=== PATIENT | male | born 1955 | race Caucasian/White ===

== ENCOUNTER 2018-07-22 21:21 | Inpatient (IN) ==
[2018-07-22] MEDS ORDERED: Ampicillin/Sulbactam 3,000 MG in 0.9 % Sodium Chloride Mini Bag 100 ML IVPB ONE (21:42)
--- NOTE | 2018-07-22 21:47 | Emergency Department Note ---
Disposition Clinical Impression: Cough, Obesities, morbid, Pleural effusion Dyspnea Qualifiers: Dyspnea type: unspecified Qualified Code(s): R06.00 - Dyspnea, unspecified Urinary incontinence Qualifiers: Urinary Incontinence type: unspecified incontinence Qualified Code(s): R32 - Unspecified urinary incontinence Chronic kidney disease (CKD) Qualifiers: Chronic kidney disease stage: unspecified stage Qualified Code(s): N18.9 - Chronic kidney disease, unspecified Disposition: Admitted As Inpatient Condition: Fair Referrals: Ephraim Esquivel MD [Primary Care Provider] - Forms: ED Satisfaction Letter, Work/School Release Time of Disposition: 22:23 Extremity Problem HPI - General Chief complaint: ED General Medical Stated complaint: multiple complaints Time Seen by Provider: 07/22/18 21:27 Source: patient, family Mode of arrival: wheelchair Limitations: no limitations Nursing Notes Reviewed: Yes Vital Signs Reviewed: Yes - History of Present Illness HPI Narrative: Patient presents with chronic changes to his left lower extremity. He states he and his significant other have been bandaging it is lower leg and foot. He states the swelling and redness continue with several sores. He states at one point his digits turned a dark color. He saw all the wound care clinic years ago. He also complains of a cough over the past 2 months with intermittent dyspnea feeling like "I cannot get enough air." He complains of unintentional urinary incontinence and urination on himself even when he does not feel like he is actively voiding Pt Subjective Complaint: extremity pain, extremity swelling Onset (ago): month(s) Consistency: constant Injury Location: left, lower extremity Pain Scale: 0 Improves with: nothing Worsens with: other (Circumferential bandage ) Associated symptoms: Reports: shortness of breath, bowel/bladder symptoms Context: other (Patient states no known history of peripheral arterial disease or DVT) - Related Data Home Medications Medication Instructions Recorded Confirmed Aspirin Enteric Coated [Aspirin EC] 81 mg PO BID 07/22/18 07/22/18 Atorvastatin Calcium [Lipitor] 20 mg PO HS 07/22/18 07/22/18 Cholecalciferol (D-3) [Vitamin D] 5,000 unit PO DAILY 07/22/18 07/22/18 Insulin ASPART [NovoLOG] 20 - 24 unit SQ TIDWM 07/22/18 07/22/18 Insulin Glargine,Hum.rec.anlog 120 unit SQ HS 07/22/18 07/22/18 [Lantus Solostar] Metoprolol Succinate [Kapspargo 50 mg PO DAILY 07/22/18 07/22/18 Sprinkle] Pioglitazone HCl/Metformin HCl 1 tab PO DAILY 07/22/18 07/22/18 [Actoplus Met Xr 30-1,000 mg Tb] Quinapril/Hydrochlorothiazide 1 tab PO DAILY 07/22/18 07/22/18 [Quinapril-Hctz 20-12.5 mg Tab] Allergies Allergy/AdvReac Type Severity Reaction Status Date / Time No Known Allergies Allergy Verified 07/22/18 21:27 All systems ED: reviewed and negative except as stated. Constitutional: Reports: weight change Eyes: Reports: as per HPI ENT ED: Reports: as per HPI Cardiovascular: Reports: as per HPI Respiratory: Reports: cough, dyspnea Gastrointestinal: Reports: as per HPI Genitourinary: Reports: other (Urinary incontinence) Musculoskeletal: Reports: other (Left lower extremity pain and swelling) Integumentary: Reports: other (Skin lesions left lower extremity) Neurological: Reports: as per HPI Psychiatric: Reports: as per HPI Endocrine: Reports: as per HPI Hematological/Lymphatic: Reports: as per HPI Allergic/Immunologic: Reports: as per HPI Past Medical History - Past Medical History Source: patient Medical history: Reports: diabetes, hypertension Psychiatric history: Reports: no psych history - Social History Smoking Status: Former smoker Alcohol use: Reports: none Drug use: Reports: none Physical Exam - General Limitations: no limitations General appearance: alert, obese - Head Head exam: atraumatic - Eye Eye exam: Present: normal appearance - ENT ENT exam: normal exam - Neck Neck exam: Present: normal inspection, full ROM - Chest Chest inspection: Present: normal inspection, symmetric chest wall rise - Respiratory Respiratory exam: Present: normal lung sounds bilaterally - Cardiovascular Cardiovascular exam: Present: regular rate, normal rhythm, normal heart sounds - Abdominal Exam Abdominal exam: Present: soft, Non-Tender - Extremities Exam Extremities exam: Present: pedal edema, other (Left lower extremity with chronic skin changes and circumferential erythema from mid calf extending distally to the foot. Dorsalis pedis pulse identified by handheld Doppler device. Toenails thickened consistent with onychomycosis) - Neurological Exam Neurological exam: Present: alert, oriented X3, CN II-XII intact - Psychiatric Psychiatric exam: Present: normal affect, normal mood - Skin Skin exam: Present: warm, dry, other (Chronic skin changes to the distal left lower extremity. Fungal rash to inner thighs) Course Course Narrative: Patient presents to the emergency department with several complaints including left lower extremity skin changes and swelling, shortness of breath, urinary incontinence. Workup initiated including labs and urinalysis. Portable chest x-ray and EKG obtained. Hand-held Doppler device able to identify pulses to his left lower extremity. I plan to admit the patient for left lower external cellulitis and further evaluation and management. He may require further vascular evaluation upon admission but at this time it appears he has preserved perfusion to his lower extremities bilaterally - Reevaluation(s) Reevaluation #1: Test results discussed with patient. I will request admission to the medicine service Vital Signs Temperature 98.5 F 07/22/18 21:27 Pulse Rate 80 07/22/18 21:27 Respiratory Rate 20 07/22/18 21:27 Blood Pressure 139/79 07/22/18 21:27 O2 Sat by Pulse Oximetry 85 07/22/18 21:27 Temperature 98.5 F 07/22/18 21:36 Pulse Rate 78 07/22/18 22:32 Respiratory Rate 18 07/22/18 22:32 Blood Pressure 124/50 07/22/18 22:32 O2 Sat by Pulse Oximetry 94 07/22/18 22:32 Oxygen Delivery Oxygen Delivery Nasal Cannula Extremity Problem, Nontraumati - Medical Records Medical records reviewed: Yes I reviewed the patient's medical records. - Lab Data Lab results reviewed: Yes I reviewed the patient's lab results. Result diagrams: 07/22/18 21:41 07/22/18 21:41 Lab Results 07/22/18 07/22/18 07/22/18 Range/Units 21:41 21:41 21:41 WBC 7.7 (4.3-11.1) K/mcL RBC 5.34 (4.19-5.50) M/mcL Hgb 13.1 (12.9-16.9) g/dL Hct 45.5 (37.5-50.1) % MCV 85.2 (83.0-100.0) fL MCH 24.5 L (28.0-33.3) pg MCHC 28.8 L (31.6-35.5) g/dL RDW 18.3 H (11.5-14.5) % Plt Count 187 (140-400) K/mcL MPV 9.5 (9.4-12.4) fL Immature Gran % 0.6 (0-4) % Seg Neutrophils % 74.4 % Lymphocytes % 10.9 % Monocytes % 11.4 % Eosinophils % 2.2 % Basophils % 0.5 % Neutrophils # 5.7 (1.6-8.9) K/mcL Lymphocytes # 0.8 (0.6-4.6) K/mcL Monocytes # 0.9 (0.0-1.3) K/mcL Eosinophils # 0.2 (0.0-0.6) K/mcL Basophils # 0.0 (0.0-0.2) K/mcL Nucleated RBCs/100 WBC 1.4 H (0) /100 WBC Hypochromasia Present A (Not Present) PT 18.9 H (9.4-12.1) Seconds INR 1.7 Sodium 136 (136-145) mEq/L Potassium 4.3 (3.5-5.1) mEq/L Chloride 94 L (98-107) mEq/L Carbon Dioxide 35 H (23-29) mEq/L BUN 52 H (8-23) mg/dL Creatinine 1.97 H (0.70-1.30) mg/dL Est GFR ( Amer) 42 L (> 60) Est GFR (Non-Af Amer) 35 L (> 60) BUN/Creatinine Ratio 26 (6-26) Glucose 104 (70-105) mg/dL Calculated Osmolality 296 (280-300) Calcium 9.1 (8.6-10.3) mg/dL Total Bilirubin 1.8 H (0.3-1.0) mg/dL AST 46 H (13-39) Units/L ALT 65 H (7-52) Units/L Alkaline Phosphatase 57 (34-104) Units/L Troponin I 0.03 (< 0.04) ng/mL Serum Total Protein 6.8 (6.4-8.9) g/dL Albumin 3.3 L (3.5-5.7) g/dL Globulin 3.5 (2.4-3.5) g/dL Albumin/Globulin Ratio 0.9 L (1.1-2.2) Urine Color (Yellow) Urine Clarity (Clear) Urine pH (5.0-8.0) pH Units Ur Specific Bucks (1.010-1.025) Urine Protein (Neg-Trace) mg/dL Urine Glucose (UA) (Normal) mg/dL Urine Ketones (Negative) mg/dL Urine Blood (Negative) Urine Nitrite (Negative) Urine Bilirubin (Negative) Urine Urobilinogen (Normal) mg/dL Ur Leukocyte Esterase (Negative) 07/22/18 Range/Units 22:22 WBC (4.3-11.1) K/mcL RBC (4.19-5.50) M/mcL Hgb (12.9-16.9) g/dL Hct (37.5-50.1) % MCV (83.0-100.0) fL MCH (28.0-33.3) pg MCHC (31.6-35.5) g/dL RDW (11.5-14.5) % Plt Count (140-400) K/mcL MPV (9.4-12.4) fL Immature Gran % (0-4) % Seg Neutrophils % % Lymphocytes % % Monocytes % % Eosinophils % % Basophils % % Neutrophils # (1.6-8.9) K/mcL Lymphocytes # (0.6-4.6) K/mcL Monocytes # (0.0-1.3) K/mcL Eosinophils # (0.0-0.6) K/mcL Basophils # (0.0-0.2) K/mcL Nucleated RBCs/100 WBC (0) /100 WBC Hypochromasia (Not Present) PT (9.4-12.1) Seconds INR Sodium (136-145) mEq/L Potassium (3.5-5.1) mEq/L Chloride (98-107) mEq/L Carbon Dioxide (23-29) mEq/L BUN (8-23) mg/dL Creatinine (0.70-1.30) mg/dL Est GFR ( Amer) (> 60) Est GFR (Non-Af Amer) (> 60) BUN/Creatinine Ratio (6-26) Glucose (70-105) mg/dL Calculated Osmolality (280-300) Calcium (8.6-10.3) mg/dL Total Bilirubin (0.3-1.0) mg/dL AST (13-39) Units/L ALT (7-52) Units/L Alkaline Phosphatase (34-104) Units/L Troponin I (< 0.04) ng/mL Serum Total Protein (6.4-8.9) g/dL Albumin (3.5-5.7) g/dL Globulin (2.4-3.5) g/dL Albumin/Globulin Ratio (1.1-2.2) Urine Color Yellow (Yellow) Urine Clarity Clear (Clear) Urine pH 5.5 (5.0-8.0) pH Units Ur Specific Bucks 1.020 (1.010-1.025) Urine Protein 30 H (Neg-Trace) mg/dL Urine Glucose (UA) Normal (Normal) mg/dL Urine Ketones Negative (Negative) mg/dL Urine Blood Negative (Negative) Urine Nitrite Negative (Negative) Urine Bilirubin Small H (Negative) Urine Urobilinogen 4.0 H (Normal) mg/dL Ur Leukocyte Esterase Negative (Negative) - Radiology Data Radiology results reviewed: Yes I reviewed the patient's radiology results. - EKG Data EKG attestation: Yes I reviewed and interpreted this EKG. EKG results narrative: Normal sinus rhythm rate 77 OK 207 QRS 105 QT/QTc 377/427. Mild ST segment flattening in inferior leads. Inverted T waves in lead V3. No studies available for comparison
[2018-07-22 22:04] LABS: Basophils % 0.5 %; Eosinophils # 0.2 K/mcL (0.0-0.6); Eosinophils % 2.2 %; Hematocrit 45.5 % (37.5-50.1); Hemoglobin 13.1 g/dL (12.9-16.9); Immature Granulocytes % 0.6 % (0-4); Lymphocytes # 0.8 K/mcL (0.6-4.6); Lymphocytes % 10.9 %; Mean Corpuscular HGB Conc 28.8 g/dL (31.6-35.5); Mean Corpuscular Hemoglobin 24.5 pg (28.0-33.3); Mean Corpuscular Volume 85.2 fL (83.0-100.0); Mean Platelet Volume 9.5 fL (9.4-12.4); Monocytes # 0.9 K/mcL (0.0-1.3); Monocytes % 11.4 %; Nucleated Red Blood Cells 1.4 /100 WBC (0); Platelet Count 187 K/mcL (140-400); Red Blood Count 5.34 M/mcL (4.19-5.50); Red Cell Distribution Width 18.3 % (11.5-14.5); Segmented Neutrophils % 74.4 %
[2018-07-22 22:08] LABS: Neutrophils # 5.7 K/mcL (1.6-8.9)
[2018-07-22 22:09] LABS: INR 1.7; Prothrombin Time 18.9 Seconds (9.4-12.1)
[2018-07-22 22:19] LABS: Hypochromasia Present (Not Present)
[2018-07-22 22:26] LABS: Troponin I 0.03 ng/mL (< 0.04)
[2018-07-22 22:27] LABS: Albumin 3.3 g/dL (3.5-5.7); Albumin/Globulin Ratio 0.9 (1.1-2.2); Bilirubin,Total 1.8 mg/dL (0.3-1.0); Calcium 9.1 mg/dL (8.6-10.3); Globulin 3.5 g/dL (2.4-3.5); Potassium 4.3 mEq/L (3.5-5.1); Total Protein 6.8 g/dL (6.4-8.9)
[2018-07-22 22:41] LABS: Bilirubin,Urine Small (Negative); Blood,Urine Negative (Negative); Clarity,Urine Clear (Clear); Color,Urine Yellow (Yellow); Glucose,Urine (UA) Normal (Normal); Ketones,Urine Negative (Negative); Leukocyte Esterase,Urine Negative (Negative); Nitrite,Urine Negative (Negative); PH,Urine 5.5 pH Units (5.0-8.0); Protein,Urine 30 mg/dL (Neg-Trace)
[2018-07-22 22:42] LABS: Squamous Epithelial Cell,Urine Many per lpf (None-Few); WBC,Urine 0-3 per hpf (0-3)
[2018-07-22 22:56] LABS: Hyaline Casts,Urine Many per lpf (None-Few)
[2018-07-22 22:57] LABS: Bacteria,Urine Few per hpf (None-Few); Mucus,Urine Many (Few)
[2018-07-22] MEDS ORDERED: Naloxone 0.4 MG/ML INJ IVP PRN (23:07)
--- NOTE | 2018-07-23 02:13 | Internal Med History&Physical ---
<Finn Cox - Last Filed: 07/23/18 05:51> Date of Encounter: 07/23/18 Time of Encounter: 01:30 Internal Medicine - H&P: HPI Chief complaint: Left leg cellulitis Admitted From: Emergency Dept Plans for Post Hospital Care: Transfer Inp Rehab Fac History of present illness: Mr. Flores is a 62 year old male with history of diabetes, hypertension, chronic cellulitis who presents to the ED with complaint of left leg wound and cellulitis which is been getting worse over the past 2-3 weeks. He says that this has been chronic over the past 5-7 years, and required wound care approximately 5 years ago. In the past 2-3 weeks, he says that he has not been able to keep it under control. The wound has been getting worse, and he says that has been weeping water. He has also noticed that it has become redder, and has been swelling. Today, his and daughter mentioned that his toes became black at approximately 8 PM at that time they decided to bring him to the hospital. The time he reached the ED they noticed that his toes have no longer present black but had recovered to a pinkish color. This is associated with some pain and tenderness, however the most part it is not that painful. Overall, he says that he has not had any fevers, however he does get chilled. He denies any purulent discharge. In addition of this, he does mention that he has had increasing shortness of breath and says that at this point he is only able to walk 5-10 steps before she becomes extremely short of breath and is unable to continue. This has been worsening significantly. It is not associated with any chest pain, and rest does seem to help. He does not get diaphoresis during this time. He does not remember ever being diagnosed with a heart attack or any heart failure. Finally, the patient complains of urinary incontinence which has been going on for approximately one week to his knowledge. He says that he hardly notices it, however he has had pain and tenderness in his groin area and he has noticed that there is been witnessed and his groin due to leaking of urine. He has not noted any dysuria or discharge. He also has not noticed any blood in his urine. He does admit to some pain in his lower back which is bilateral. Past Med Surg Social Fam HX - Past Medical History Medical history: diabetes, hypertension Psychiatric history: no psych history - Past Surgical History Additional surgical history: right foot surgery - Social History Smoking Status: Former smoker Alcohol use: none Drug use: none - Family History Mother Family Member Ethnicity: Non- Living Status: Age at : 71 Hx Family Cancer: Yes (lung/brain cancer) Hx Family Endocrine Disorder: Yes (diabetes) Father Family Member Ethnicity: Non- Living Status: Age at : 75 Hx Family Cardiac Disorders: Yes (heart attack) Internal Medicine - H&P: Meds Aspirin Enteric Coated [Aspirin EC] 81 mg PO BID 07/22/18 [History] Atorvastatin Calcium [Lipitor] 20 mg PO HS 07/22/18 [History] Cholecalciferol (D-3) [Vitamin D] 5,000 unit PO DAILY 07/22/18 [History] Insulin ASPART [NovoLOG] 20 - 24 unit SQ TIDWM 07/22/18 [History] Insulin Glargine,Hum.rec.anlog [Lantus Solostar] 120 unit SQ HS 07/22/18 [ History] Metoprolol Succinate [Kapspargo Sprinkle] 50 mg PO DAILY 07/22/18 [History] Pioglitazone HCl/Metformin HCl [Actoplus Met Xr 30-1,000 mg Tb] 1 tab PO DAILY 07/22/18 [History] Quinapril/Hydrochlorothiazide [Quinapril-Hctz 20-12.5 mg Tab] 1 tab PO DAILY 11/08 [History] 3 Allergy/AdvReac Type Severity Reaction Status Date / Time No Known Allergies Allergy Verified 07/22/18 21:27 All Systems PM: A 10-system review of systems was performed and is negative for pertinent findings except as documented above in the HPI. Review of systems: Constitutional: Denies fevers, weight loss, generalized fatigue. Admits to chills Head/Neck: Denies CARTER, neck stiffness EENT: Denies vision changes/blurriness, rhinorrhea, congestion, sore throat CVS: Denies chest pain, palpitations, orthopnea, edema, PND. Admits to dyspnea on exertion with only minimal activity Pulm: Denies cough, sputum, hemoptysis, wheezing GI: Denies abdominal pain, nausea, vomiting, diarrhea, constipation, melena, hematemasis : Denies dysuria, increased frequency, urgency, hematuria. Admits to urinary incontinence Heme: Denies ease of bleeding or bruising MSK: Denies joint pain, limited ROM Skin: Admits to cellulitis with weeping of fluid in the left lower extremity as well as painful skin lesion in his groin area and underneath abdominal folds Neuro: Denies CARTER, paresthesias, focal deficits, ataxia - Constitutional Vitals: Temp Pulse Resp BP Pulse Ox 98.1 F 72 20 119/73 99 07/23/18 01:15 07/23/18 01:15 07/23/18 01:15 07/23/18 01:15 07/23/18 01:15 Exam: Gen: Vitals noted. No acute distress. Obese man HEENT: Normocephalic, atraumatic Neck: Supple. No adenopathy. No obvious JVD Cardiac: Distant heart sounds, RRR, no murmur, +S1/S2. Pulmonary: CTA bilaterally anteriorly, no wheezes, rales or rhonchi, equal chest expansion. Technically challenging exam due to size Abdomen: soft, nontender, no guarding. Skin over abdominal fold is hardened and keratotic Integument: Skin under abdominal fold and around groin is erythemic and hyperemic with minimal sloughing. There is dark erythematous skin on the left lower extremity that extends to the foot with keratotic skin at the distal extremity. There is moisture with weeping fluid in the left extremity. Extremities: 3+ lower extremity edema bilaterally, worse in left leg, legs are tender, no cyanosis or clubbing Neuro: moves all extremities, no focal deficits. A&Ox3 Psych: Appropriate mood and behavior Internal Med - H&P Results - Labs CBC & Chem 7: 07/23/18 05:06 07/22/18 21:41 - Assessment and plan (1) Cellulitis Current Visit: Yes Status: Acute Assessment and plan: Cellulitis of the left lower extremity, acute on chronic Patient is having worsening redness and pain in his left lower extremity We will start vancomycin pending cultures, pharmacy to dose Qualifiers: Site of cellulitis: extremity Site of cellulitis of extremity: lower extremity Laterality: left Qualified Code(s): L03.116 - Cellulitis of left lower limb (2) TEAGAN (acute kidney injury) Current Visit: Yes Status: Acute Assessment and plan: Acute kidney injury, serum creatinine 1.97 Baseline serum creatinine appears to be 1.1 on prior testing Suspect this is secondary to cardiorenal syndrome At this time plan to diurese the patient with 40mg IV Lasix We will also place a Mccloud catheter and monitor strict I/Os Retroperitoneal utlrasound, urine electrolytes Consider nephrology consult (3) Diabetes Current Visit: Yes Status: Acute Assessment and plan: Diabetes which appears to be in relatively good control Patient has been on pioglitazone which is not a great medication for him considering suspected heart failure Qualifiers: Diabetes mellitus type: type 2 Diabetes mellitus mcfp insulin use: 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 Diabetes mellitus complication status: with skin complications Diabetes mellitus complication detail: with dermatitis Qualified Code(s): E11.620 - Type 2 diabetes mellitus with diabetic dermatitis; Z79.4 - buttermaker continuous churn (current) use of insulin (4) Hepatic injury Current Visit: Yes Status: Acute Assessment and plan: Patient presents with mildly elevated transaminitis, INR 1.7 Likely secondary to suspected CHF and vascular congestion I will get a liver ultrasound in the morning Repeat LFTs and INR Qualifiers: Encounter type: initial encounter Qualified Code(s): S36.119A - Unspecified injury of liver, initial encounter (5) Intertrigo Current Visit: Yes Status: Acute (6) Pleural effusion Current Visit: Yes Status: Acute Assessment and plan: Moderate right pleural effusion Suspected secondary to cardiac causes Currently requires supplemental oxygen We will continue this to maintain oxygen saturation greater than 92% We will begin IV Lasix for diuresis Consider pulmonology consult (7) Obesities, morbid Current Visit: Yes Status: Acute (8) Urinary incontinence Current Visit: Yes Status: Acute Assessment and plan: Urinary incontinence, unknown etiology No obvious UTI on UA We will place mccloud catheter for now Retroperitoneal ultrasound Qualifiers: Urinary Incontinence type: unspecified incontinence Qualified Code(s): R32 - Unspecified urinary incontinence (9) DVT prophylaxis Current Visit: Yes Status: Acute Assessment and plan: SQ Heparin (10) CHF (congestive heart failure), NYHA class III Current Visit: Yes Status: Suspected Assessment and plan: Suspected congestive heart failure Patient has worsening dyspnea on exertion, elevated BNP on admission 731 Chest x-ray demonstrates right pleural effusion and pulmonary vascular congestion Additionally, the patient has acute kidney injury and hepatic injury suspicious for cardiorenal and cardiac hepatic syndromes Reports no history of cardiac disease, there is no previous cardiac imaging or evaluation EKG demonstrates no ischemic disease, troponins negative at this time Plan -Echocardiogram in the morning -Fluid restriction 1500 mL -With IV Lasix -Strict I's and O's, measure daily weights -Consider cardiology consult Qualifiers: Congestive heart failure type: unspecified Qualified Code(s): I50.9 - Heart failure, unspecified - Time Spent With Patient Total time spent is greater than 50% in coordination of care (as documented) at patient's floor/unit and/or counseling patient: <Sheryl Thompson - Last Filed: 07/23/18 09:26> Date of Encounter: 07/23/18 Internal Medicine - H&P: HPI History of present illness: Mr. Flores is a 62 year old male All Systems PM: A 10-system review of systems was performed and is negative for pertinent findings except as documented above in the HPI. - Constitutional Vitals: Temp Pulse Resp BP Pulse Ox 97.6 F 64 18 100/68 96 07/23/18 06:39 07/23/18 06:39 07/23/18 06:39 07/23/18 06:39 07/23/18 06:39 Internal Med - H&P Results - Labs CBC & Chem 7: 07/23/18 05:06 07/23/18 05:06 - Assessment and plan (1) Urinary incontinence Current Visit: Yes Status: Acute Qualifiers: Urinary Incontinence type: unspecified incontinence Qualified Code(s): R32 - Unspecified urinary incontinence (2) Obesities, morbid Current Visit: Yes Status: Chronic (3) Pleural effusion Current Visit: Yes Status: Acute (4) Diabetes Current Visit: Yes Status: Acute Qualifiers: Diabetes mellitus type: type 2 Diabetes mellitus mcfp insulin use: with mcfp use Diabetes mellitus complication status: with skin complications Diabetes mellitus complication detail: with dermatitis Qualified Code(s): E11.620 - Type 2 diabetes mellitus with diabetic dermatitis; Z79.4 - intermediate (current) use of insulin (5) TEAGAN (acute kidney injury) Current Visit: Yes Status: Acute (6) Hepatic injury Current Visit: Yes Status: Acute Qualifiers: Encounter type: initial encounter Qualified Code(s): S36.119A - Unspecified injury of liver, initial encounter (7) Intertrigo Current Visit: Yes Status: Acute (8) Cellulitis Current Visit: Yes Status: Acute Qualifiers: Site of cellulitis: extremity Site of cellulitis of extremity: lower extremity Laterality: left Qualified Code(s): L03.116 - Cellulitis of left lower limb (9) DVT prophylaxis Current Visit: Yes Status: Acute (10) CHF (congestive heart failure), NYHA class III Current Visit: Yes Status: Acute Qualifiers: Congestive heart failure type: unspecified Qualified Code(s): I50.9 - Heart failure, unspecified - Time Spent With Patient Total time spent is greater than 50% in coordination of care (as documented) at patient's floor/unit and/or counseling patient: - Attending Attestation Patient seen and examined. Case discussed with resident. Agree with assessment and plan. For the patient's left lower extremity cellulitis and swelling,. We will continue vancomycin for now. Statin cream for erythema within the abdominal folds and groin region. Elevated INR concerning in the absence of anticoagulation and elevated LFTs. We will repeat INR and consider GI consult pending results.
[2018-07-23] MEDS ORDERED: Naloxone 0.4 MG/ML INJ IVP PRN (02:32)
[2018-07-23] MEDS ORDERED: Furosemide 40 MG/4 ML VIAL IVP ONE (02:34)
[2018-07-23] MEDS ORDERED: Dextrose Gel 15 GM/37.5 ML TUBE PO PRN ×2 (03:04)
[2018-07-23] MEDS ORDERED: *HR* Dextrose 50 % in Water (Syg) 50 ML SYRINGE IVP PRN (03:04)
[2018-07-23] MEDS ORDERED: D5% in Water 1,000 ML IVC PRN (03:04)
[2018-07-23] MEDS: Nystatin POWDER 30 GM BOTTLE TP SCH ×2 (03:41→10:32)
[2018-07-23 04:27] LABS: Protein/Creatinine Ratio,Urine 0.16 mg/mg (0.00-0.20); Sodium, Urine 66.2 mEq/L
[2018-07-23 05:28] LABS: Hemoglobin 13.1 g/dL (12.9-16.9)
[2018-07-23 05:30] LABS: Basophils # 0.1 K/mcL (0.0-0.2); Basophils % 0.7 %; Eosinophils # 0.2 K/mcL (0.0-0.6); Eosinophils % 2.8 %; Hematocrit 44.9 % (37.5-50.1); Immature Granulocytes % 0.9 % (0-4); Lymphocytes # 0.8 K/mcL (0.6-4.6); Lymphocytes % 10.9 %; Mean Corpuscular HGB Conc 29.2 g/dL (31.6-35.5); Mean Corpuscular Hemoglobin 24.6 pg (28.0-33.3); Mean Corpuscular Volume 84.2 fL (83.0-100.0); Mean Platelet Volume 10.1 fL (9.4-12.4); Monocytes # 0.8 K/mcL (0.0-1.3); Monocytes % 10.9 %; Neutrophils # 5.5 K/mcL (1.6-8.9); Nucleated Red Blood Cells 0.8 /100 WBC (0); Platelet Count 183 K/mcL (140-400); Red Blood Count 5.33 M/mcL (4.19-5.50); Red Cell Distribution Width 18.6 % (11.5-14.5); Segmented Neutrophils % 73.8 %
[2018-07-23 05:32] LABS: INR 1.6
[2018-07-23 06:00] LABS: Albumin 3.2 g/dL (3.5-5.7); Albumin/Globulin Ratio 0.9 (1.1-2.2); Bilirubin,Direct 0.8 mg/dL (0.0-0.2); Bilirubin,Indirect 0.9 mg/dL (0.0-1.2); Bilirubin,Total 1.7 mg/dL (0.3-1.0); Globulin 3.7 g/dL (2.4-3.5); Total Protein 6.9 g/dL (6.4-8.9)
[2018-07-23 06:01] LABS: Calcium 8.9 mg/dL (8.6-10.3); Chol/HDL Ratio 2.8 (0-4.9); Magnesium 1.9 mg/dL (1.6-2.6); Phosphorous 4.2 mg/dL (2.7-4.5)
[2018-07-23 06:11] LABS: Hypochromasia Present (Not Present); Platelet Estimate Normal (Normal)
[2018-07-23] MEDS: *HR* Heparin 5,000 UNIT/ML VIAL SQ SCH ×3 (06:11→20:58)
[2018-07-23 06:17] LABS: Hepatitis B Surface Antigen Nonreactive (Nonreactive)
[2018-07-23] MEDS ORDERED: Aminoglycoside Consult 1 EACH MC ONE (07:29)
[2018-07-23] MEDS: Insulin LISPRO 300 UNITS/3 ML VIAL SQ SCH ×4 (08:16→20:58)
[2018-07-23] MEDS: Aspirin Enteric Coated 81 MG Tablet PO SCH ×2 (08:23→20:58)
[2018-07-23] MEDS: Metoprolol XL (24 HR) Succ 50 MG TAB.ER.24H PO SCH (08:24)
--- NOTE | 2018-07-23 09:13 | Internal Med Progress Note ---
Hospitalist Progress Note - Encounter Date of Encounter: 07/23/18 Time of Encounter: 09:10 - Subjective Interval History: Patient with history of morbid obesity, hypertension, diabetes, chronic cellulitis. Patient was admitted with worsening left leg cellulitis also has complaint no shortness of breath with exertion urinary incontinence patient started on vancomycin - Exam Vitals: Temp Pulse Resp BP Pulse Ox 97.6 F 64 18 100/68 96 07/23/18 06:39 07/23/18 06:39 07/23/18 06:39 07/23/18 06:39 07/23/18 06:39 Exam: Gen: Vitals noted. No acute distress. Obese man HEENT: Normocephalic, atraumatic Neck: Supple. No adenopathy. No obvious JVD Cardiac: Distant heart sounds, RRR, no murmur, +S1/S2. Pulmonary: CTA bilaterally anteriorly, no wheezes, rales or rhonchi, equal chest expansion. Technically challenging exam due to size Abdomen: soft, nontender, no guarding. Skin over abdominal fold is hardened and keratotic Integument: Skin under abdominal fold and around groin is erythemic and hyperemic with minimal sloughing. There is dark erythematous skin on the left lower extremity that extends to the foot with keratotic skin at the distal extremity. There is moisture with weeping fluid in the left extremity. Extremities: 3+ lower extremity edema bilaterally, worse in left leg, legs are tender, no cyanosis or clubbing Neuro: moves all extremities, no focal deficits. A&Ox3 Psych: Appropriate mood and behavior - Assessment and Plan (1) Dyspnea Current Visit: Yes Status: Acute Assessment and Plan: Shortness of breath. new onset congestive heart failure BNP 730 chest x-ray showed pulmonary congestion with right pleural effusion 2-D echo is ordered and pending will consult cardiology for new onset congestive heart failure in the meantime start on Lasix 40 mg IV twice a day (2) Obesities, morbid Current Visit: Yes Status: Chronic Assessment and Plan: Chronic due to excess caloric intake (3) TEAGAN (acute kidney injury) Current Visit: Yes Status: Acute Assessment and Plan: Acute kidney injury will monitor if worsens will consult nephrology (4) Hepatic injury Current Visit: Yes Status: Acute Assessment and Plan: Mildly elevated liver enzymes likely mild hepatitis (5) CHF (congestive heart failure), NYHA class III Current Visit: Yes Status: Acute Assessment and Plan: 2-D echo is pending to evaluate and assess if diastolic or systolic heart failure appeared to be new onset no documented history of congestive heart failure in the past - Time Spent with Patient Total time spent is greater than 50% in coordination of care (as documented) at patient's floor/unit and/or counseling patient: Internal Medicine: Result - Labs CBC & Chem 7: 07/23/18 05:06 07/23/18 05:06 - ABG Interpretation ABG results: PT/INR, D-dimer PT 18.0 Seconds (9.4-12.1) H 07/23/18 05:06 Consult Discharge Plan - Plan Referrals: Ephraim Esquivel MD [Primary Care Provider] - (1) Dyspnea Qualifiers: Dyspnea type: unspecified Qualified Code(s): R06.00 - Dyspnea, unspecified (4) Hepatic injury Qualifiers: Encounter type: initial encounter Qualified Code(s): S36.119A - Unspecified injury of liver, initial encounter (5) CHF (congestive heart failure), NYHA class III Qualifiers: Congestive heart failure type: unspecified Qualified Code(s): I50.9 - Heart failure, unspecified
[2018-07-23] MEDS: Perflutren Lipid Microsphere 1.3 ML in 0.9 % Sodium Chloride 8.7 ML IVP ONE ×2 (10:31→11:15)
--- NOTE | 2018-07-23 11:40 | Infectious Disease Consult ---
Date of Encounter: 07/23/18 Time of Encounter: 11:37 Assessment and Plan (1) Venous stasis of lower extremity Status: Acute Assessment and plan: Location: BLE, left>right. LLE is beefy red, but non-tender and not warm to touch. The skin changes have been constant for the last 5 years and are unchanged. Unlikely that this is cellulitis and more likely to be related to PVD. The patient has no sepsis criteria. Recommend Podiatry/wound care to evaluate. Recommend Vascular to evaluate. Consider venous doppler study. Check ESR and CRP. Get CT of the LLE without IV contrast to evaluate. ABIs ordered by the primary team and pending completion. Discontinue Vancomycin and observe. (2) Pleural effusion Status: Acute Assessment and plan: Location: Right lung. Likely secondary to CHF. CXR showed moderate right pleural effusion. Recommend pulmonology to evaluate. Diuresis/thoracentesis per the primary and pulmonology teams. (3) TEAGAN (acute kidney injury) Status: Acute Assessment and plan: Serum creatinine elevated at 1.97 on admission. Etiology unclear. Continue to trend. Dose-adjust medications and avoid nephrotoxins. Will stop Vancomycin for now. (4) Acute exacerbation of CHF (congestive heart failure) Status: Acute Assessment and plan: Cardiology consulted. Await recommendations. Qualifiers: Heart failure type: diastolic Qualified Code(s): I50.33 - Acute on chronic diastolic (congestive) heart failure (5) Dyspnea Status: Acute Assessment and plan: Likely secondary to CHF and pleural effusion. Management per the primary team. Qualifiers: Dyspnea type: unspecified Qualified Code(s): R06.00 - Dyspnea, unspecified (6) Urinary incontinence Status: Acute Assessment and plan: Etiology unclear. Recommend urology to evaluate. Qualifiers: Urinary Incontinence type: unspecified incontinence Qualified Code(s): R32 - Unspecified urinary incontinence (7) Obesities, morbid Status: Chronic (8) Diabetes Status: Acute Assessment and plan: Recommend aggressive glucose monitoring and control to promote healing and prevent re-infection. Management per the primary team. 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 (10) Hepatic injury Status: Acute Assessment and plan: INR 1.7 on admission. LEFT slightly elevated. Continue to trend. Recommend GI to evaluate. Qualifiers: Encounter type: initial encounter Qualified Code(s): S36.119A - Unspecified injury of liver, initial encounter Infectious Disease HPI - Data of Consult Patient: new to practice Consult date: 07/23/18 Requesting Physician: Sheryl Thompson MD Primary Care Provider: Ephraim Esquivel MD - Consult Narrative Reason for consult: LLE cellulitis History of present illness: Mr. Flores is a 62 year old male with a past medical history of morbid obesity, hypertension, diabetes, and chronic changes of the left lower extremity. The patient was admitted to the hospital July 22 for cough, pleural effusion, and chronic kidney disease. We are consulted July 23 for further recommendations for left lower extremity cellulitis. Briefly, the patient is a 62-year-old male with past medical history as stated above. The patient presented to the emergency department with multiple complaints including left lower extremity cellulitis with worsening of a chronic left lower extremity wound, color change of his toes, shortness of breath, and urinary incontinence. Upon arrival to the ER, the patient was afebrile and hemodynamically stable. He was noted to be hypoxic with an SPO2 of 85%. Laboratory studies revealed a normal white blood cell count. Renal function was diminished with a serum creatinine of 1.97. BNP was elevated at 731. Troponin was negative. INR was elevated at 1.7. LFTs revealed a total bili of 1.8, AST of 46, ALC of 65, and alkaline phosphatase of 50. Chest x-ray showed cardiomegaly with a moderate right-sided pleural effusion area urinalysis was obtained and appeared contaminated. He was started on IV think and Unasyn and admitted to the hospital for further evaluation. Since admission, the febrile hemodynamically stable. His white blood cell count has remained normal. Blood cultures have been obtained 2 sets are pending. LFTs are trending down. Kidney function is improved. A retroperitoneal ultrasound, echocardiogram, liver ultrasound, an JESICA studies have been ordered and are pending completion. Cardiology, vascular surgery, and wound care have been consulted. Currently, the patient is on IV vancomycin. We have been asked to evaluate and make further recommendations. During my exam today, the patient tells me that he has had chronic changes to the left lower extremity for the past 5 years. He states that recently he noticed that there is some clear weeping from the left lower extremity. He denies any change to the skin or open sores. He denies any fevers or chills or rigors. Denies headache or neck pain. Denies chest pain, but does not endorse some shortness of breath and cough. He denies any nausea or vomiting or diarrhea. He states his appetite has been good. He reports his blood sugars are not really well controlled. He denies any oral thrush or new skin lesions. He does report recent onset of urinary incontinence, but denies any dysuria, hematuria, or urinary frequency. He denies any pain in his back or joints. He does report some intermittent pain to the left lower extremity, but nothing that is constant. He denies any purulent drainage or new ulcerations. The patient lives at home with his and children. He does not work outside the home. He denies recent travel outside the [facility]. He does have a dog, but denies any bites or scratches from the animal. He denies any tobacco, alcohol, or illicit drug use. He denies any known chronic infectious diseases. CC: Sheryl Thompson MD Past Med Surg Social Fam HX - Past Medical History Attestation: Yes The following information was validated with the patient. Source: patient, old records reviewed, nursing notes reviewed Medical history: diabetes, hypertension Psychiatric history: no psych history - Past Surgical History Additional surgical history: right foot surgery - Social History Smoking Status: Former smoker Alcohol use: none Drug use: none Occupational status: unemployed Current living situation: Home, With Family Activity Level: Uses cane/walker Recent Out of Country Travel Within the Last 8 Weeks: No Exposure or Possible Exposure to Illness During Travel: No - Family History Mother Family Member Ethnicity: Non- Living Status: Age at : 71 Hx Family Cancer: Yes (lung/brain cancer) Hx Family Endocrine Disorder: Yes (diabetes) Father Family Member Ethnicity: Non- Living Status: Age at : 75 Hx Family Cardiac Disorders: Yes (heart attack) Infectious Disease-CN:Meds Aspirin Enteric Coated [Aspirin EC] 81 mg PO BID 07/22/18 [History] Atorvastatin Calcium [Lipitor] 20 mg PO HS 07/22/18 [History] Cholecalciferol (D-3) [Vitamin D] 5,000 unit PO DAILY 07/22/18 [History] Insulin ASPART [NovoLOG] 20 - 24 unit SQ TIDWM 07/22/18 [History] Insulin Glargine,Hum.rec.anlog [Lantus Solostar] 120 unit SQ HS 07/22/18 [ History] Metoprolol Succinate [Kapspargo Sprinkle] 50 mg PO DAILY 07/22/18 [History] Pioglitazone HCl/Metformin HCl [Actoplus Met Xr 30-1,000 mg Tb] 1 tab PO DAILY 07/22/18 [History] Quinapril/Hydrochlorothiazide [Quinapril-Hctz 20-12.5 mg Tab] 1 tab PO DAILY 11/08 [History] 3 Allergy/AdvReac Type Severity Reaction Status Date / Time No Known Allergies Allergy Verified 07/22/18 21:27 All systems: reviewed and no additional remarkable complaints except as stated Exam - Constitutional Vitals: Temp Pulse Resp BP Pulse Ox 97.6 F 64 18 100/68 96 07/23/18 06:39 07/23/18 06:39 07/23/18 06:39 07/23/18 06:39 07/23/18 06:39 General appearance: cooperative, morbidly obese, no acute distress - Head Head exam: Present: atraumatic, normal inspection, normocephalic - Eye Eye exam: Present: EOMI, normal appearance, PERRL Pupils: Present: normal accommodation - ENT ENT exam: Present: mucous membranes moist - Neck Neck exam: Present: normal inspection - Respiratory Respiratory exam: Present: decreased breath sounds (Right base), CTAB. Absent: rales, respiratory distress, rhonchi, tachypnea - Cardiovascular Cardiovascular exam: Present: RRR, +S1, +S2 - GI/Abdominal GI/Abdominal exam: Present: distended (Obese), normal bowel sounds, soft. Absent: tenderness Additional comments: Solorio catheter noted to be draining clear yellow urine. - Extremities Exam Extremities exam: Present: pedal edema (3+ left lower extremity). Absent: normal inspection (Erythematous changes noted to the lower aspect of the left lower extremity, ankle, and foot including the toes. Serous drainage noted to be weeping from the lower aspect of the left leg. No warmth with palpation. No tenderness noted. Venous stasis changes noted to the right lower extremity.) , tenderness - Neurological Exam Neurological exam: Present: alert, oriented X3, no focal deficits - Psychiatric Psychiatric exam: Present: normal affect, normal mood - Skin Skin exam: Present: dry, intact, normal color, warm Infectious Disease CN: Results - Labs CBC & Chem 7: 07/23/18 05:06 07/26/18 09:24 Consult Discharge Plan - Plan Referrals: Ephraim Esquivel MD [Primary Care Provider] - - Attending Attestation I examined this patient and my medical decision-making was reviewed with the Resident Physician. I agree with the documented findings, disposition and treatment plan as described except to the extent set forth below. This is an addendum to original report dictated by Jennifer Lr CNP. Please refer to Jennifer's note for full detail. Patient 59-year-old gentleman with multiple comorbidities including morbid obesity with a BMI of 68 presented to [facility] with lower extremity erythema and serous drainage. Patient was started on broad-spectrum antibiotics and we were consulted to evaluate the patient and make further recommendations. Assessment and plan: Venous stasis of lower extremity it is bilateral but left worse than the right it is a little bit beefy and red but is not tender and not warm to touch and it has been unchanged for about 2 years. I really do not think right now that this patient has cellulitis so I think we can stop all antibiotics unobserved. If clinically starts doing worse and we might reevaluate Patient has severe onychomycosis so he needs to be evaluated by podiatry. I did speak with the daughter and the patient about giving Lamisil and the risks I effects and if I think it is feel that it is can be beneficial for him versus not. I think we will hold off right now and see what podiatry has to say when they evaluate him. Monitor labs and for drug toxicity.
[2018-07-23] MEDS: Clotrimazole/Betameth Dip CRM 45 APPL/45 GM TUBE TP SCH ×2 (12:56→20:58)
--- NOTE | 2018-07-23 13:00 | Cardiology Consult Note ---
Date of Encounter: 07/23/18 Time of Encounter: 12:56 Assessment and Plan (1) Acute exacerbation of CHF (congestive heart failure) Current Visit: Yes Status: Acute Presents with multiple complaints, including dyspnea and LE edema. TTE resulted--LVEF 65%. Normal LV chamber size and function. Mildly dilated right ventricle with mild hypokinesis. Moderately dilated right atrium. No significant valvular dysfunction. Severe pulmonary hypertension est RVSP 64mmHg. BNP 731, CXR with cardiomegaly and right sided pleural effusion. Fluid overload/ CHF. Right sided heart failure secondary to severe pulmonary htn. Hx of tobacco abuse. Agree with IV diuresis--IV Lasix 40mg BID. Presented with TEAGAN, improving with diuresis. Monitor closely. Recommend Strict I/Os, Na and fluid restriction, daily weights. Will review and discuss with Dr. Gomez. Qualifiers: Heart failure type: right-sided Qualified Code(s): I50.813 - Acute on chronic right heart failure Discussion w patient/family: The assessment and plan as outlined above was discussed with the patient and/or family members who expressed understanding and agreement. All questions were answered. Thank you for involving us in the care of your patient. Please call with any questions. I will discuss all the above with Dr. Gomez and make changes as necessary. History of Present Illness Consult date: 07/23/18 Consult reason: CHF Chief complaint: dyspnea, incontinence, LE edema History of present illness: Mr. Flores is a 62 year old male with PMH of diabetes, HTN, chronic cellulitis who presents to the ED with complaint of left leg wound and cellulitis which is been getting worse over the past 2-3 weeks, seeping fluid. Reports increasing shortness of breath, denies chest pain. Complains of urinary incontinence for the past week. TEAGAN, renal function historically normal, 1.97 yesterday and 1.70 today. BNP 731. Cardiology consulted for further recs. TTE resulted--LVEF 65%. Normal LV chamber size and function. Mildly dilated right ventricle with mild hypokinesis. Moderately dilated right atrium. No significant valvular dysfunction. Severe pulmonary hypertension. No personal cardiac hx. Troponin negative. Past Med Surg Social Fam HX - Past Medical History Medical history: diabetes, hypertension Psychiatric history: no psych history - Past Surgical History Additional surgical history: right foot surgery - Social History Smoking Status: Former smoker Alcohol use: none Drug use: none - Family History Mother Family Member Ethnicity: Non- Living Status: Age at : 71 Hx Family Cancer: Yes (lung/brain cancer) Hx Family Endocrine Disorder: Yes (diabetes) Father Family Member Ethnicity: Non- Living Status: Age at : 75 Hx Family Cardiac Disorders: Yes (heart attack) Medications and Allergies Aspirin Enteric Coated [Aspirin EC] 81 mg PO BID 07/22/18 [History] Atorvastatin Calcium [Lipitor] 20 mg PO HS 07/22/18 [History] Cholecalciferol (D-3) [Vitamin D] 5,000 unit PO DAILY 07/22/18 [History] Insulin ASPART [NovoLOG] 20 - 24 unit SQ TIDWM 07/22/18 [History] Insulin Glargine,Hum.rec.anlog [Lantus Solostar] 120 unit SQ HS 07/22/18 [ History] Metoprolol Succinate [Kapspargo Sprinkle] 50 mg PO DAILY 07/22/18 [History] Pioglitazone HCl/Metformin HCl [Actoplus Met Xr 30-1,000 mg Tb] 1 tab PO DAILY 07/22/18 [History] Quinapril/Hydrochlorothiazide [Quinapril-Hctz 20-12.5 mg Tab] 1 tab PO DAILY 11/08 [History] 3 Allergy/AdvReac Type Severity Reaction Status Date / Time No Known Allergies Allergy Verified 07/22/18 21:27 All Systems Review: The remainder of the systems were reviewed and are negative - Cardiovascular Cardiovascular: as per HPI, dyspnea at rest, dyspnea on exertion, leg edema - Respiratory Respiratory: dyspnea Physical Examination Vital Signs, Last 4 Hours Temp Pulse Resp BP Pulse Ox 07/23/18 12:05 97.7 F 70 16 120/76 96 Vital Signs Temp Pulse Resp BP Pulse Ox 07/23/18 12:05 97.7 F 70 16 120/76 96 07/23/18 06:39 97.6 F 64 18 100/68 96 07/23/18 04:11 98.2 F 61 19 117/75 95 07/23/18 01:15 98.1 F 72 20 119/73 99 07/22/18 22:32 78 18 124/50 94 07/22/18 21:36 98.5 F 80 20 139/79 85 07/22/18 21:27 98.5 F 80 20 139/79 85 Intake and Output 07/22/18 07/23/18 07/23/18 23:59 07:59 15:59 Intake Total 100 / 100 Output Total 2100 / 2100 800 / 800 Balance -1999 / -2000 -800 / -800 Intake: IV Fluids 100 / 100 Unasyn 3,000 MG In 0.9 % Sodium 100 / 100 Chloride (Mini-Bag +) 100 ML @ 200 mls/hr IVPB ONCE ONE Rx#: [id number] Oral 0 / 0 Output: Urine 400 / 400 Catheter 1700 / 1700 800 / 800 Other: Meal NPO BREAKFAST Weight 228.611 kg 222.759 kg Blood Glucose* 74 65 Patient Weight 07/23/18 23:59 Weight 222.759 kg General: Conversant, No Apparent Distress HEENT: Atraumatic, Normocephaly, Mucus Membranes Moist Neck: Normal carotid pulses Cardiac: Reg Rate and Rhythm, Normal S1 and S2, No Murmur Lungs: Other (diminished) Neuro: Alert and responsive, No focal deficits noted Abdomen: Soft, Non-Tender Skin: Other (LLE cellulitis) Musculoskeletal: No Chest Wall Tenderness Extremities: Other (3+ BLE edema, LLE worse) Results 07/23/18 05:06 07/23/18 05:06 Short CBC 07/23/18 07/22/18 Range/Units 05:06 21:41 WBC 7.5 7.7 (4.3-11.1) K/mcL Hgb 13.1 13.1 (12.9-16.9) g/dL Hct 44.9 45.5 (37.5-50.1) % Plt Count 183 187 (140-400) K/mcL Neutrophils # 5.5 5.7 (1.6-8.9) K/mcL BMP 07/23/18 07/22/18 Range/Units 05:06 21:41 Sodium 138 136 (136-145) mEq/L Potassium 4.0 4.3 (3.5-5.1) mEq/L Chloride 95 L 94 L (98-107) mEq/L Carbon Dioxide 34 H 35 H (23-29) mEq/L BUN 48 H 52 H (8-23) mg/dL Creatinine 1.70 H 1.97 H (0.70-1.30) mg/dL Glucose 71 104 (70-105) mg/dL Calcium 8.9 9.1 (8.6-10.3) mg/dL Cardiac Enzymes 07/22/18 Range/Units 21:41 Troponin I 0.03 (< 0.04) ng/mL Liver Function 07/23/18 07/22/18 Range/Units 05:06 21:41 Total Bilirubin 1.7 H 1.8 H (0.3-1.0) mg/dL Direct Bilirubin 0.8 H (0.0-0.2) mg/dL AST 42 H 46 H (13-39) Units/L ALT 60 H 65 H (7-52) Units/L Alkaline Phosphatase 55 57 (34-104) Units/L Albumin 3.2 L 3.3 L (3.5-5.7) g/dL Urine 07/22/18 Range/Units 22:22 Urine Color Yellow (Yellow) Urine Clarity Clear (Clear) Urine pH 5.5 (5.0-8.0) pH Units Ur Specific [place] 1.020 (1.010-1.025) Urine Protein 30 H (Neg-Trace) mg/dL Urine Glucose (UA) Normal (Normal) mg/dL Impressions Chest X-Ray 07/22/18 21:41 IMPRESSION: Cardiomegaly and moderate right-sided pleural effusion are identified. Fluid overload/CHF considered. D/ / Raul Jimenez / Raul Jimenez Interpreting Provider: Raul Jimenez Echocardiogram 07/23/18 23:11 Impressions: LVEF 65%. Normal LV chamber size and function. Mildly dilated right ventricle with mild hypokinesis. Moderately dilated right atrium. No significant valvular dysfunction. Severe pulmonary hypertension. Left Ventricular Wall Motion: Rest Echo Findings All wall segments showed normal motion. Findings: Study Quality * Technically adequate exam. ECG Findings * Normal sinus rhythm. Left Ventricle * LVEF 65%. * Normal LV chamber size and function. * Normal left ventricular diastolic function. * Concentric left ventricular remodeling. Right Ventricle * Mildly dilated right ventricle. * Mild right ventricular hypokinesis. Left Atrium * Normal left atrial size. Right Atrium * Moderately dilated right atrium. Interatrial Septum * Interatrial septum not well evaluated. Aortic Valve * Trileaflet aortic valve. * Trileaflet aortic valve with normal function. * No aortic regurgitation. * No aortic stenosis. Mitral Valve * Normal mitral valve structure and function. * No mitral regurgitation. Tricuspid Valve * Trace tricuspid regurgitation. * Estimated RVSP is 64 mmHg. * Estimated RA pressure is 15 mmHg. * Severe pulmonary hypertension. Pulmonic Valve * Pulmonic valve not well visualized. * Trace pulmonic regurgitation. Aorta * Normally sized aortic root. Pericardium * The pericardium appears normal. IVC * The IVC is dilated. * < 50% respiratory change. Active Medications Aspirin (Aspirin Ec) 81 mg PO BID [facility] Stop: 01/22/19 09:01 Last Admin: 07/23/18 08:23 Dose: 81 mg Betamethasone/Clotrimazole (Lotrisone Crm) 1 appl TP BID [facility] Stop: 01/22/19 09:46 Last Admin: 07/23/18 12:56 Dose: 1 appl Dextrose/Water (Dextrose 50% (Syg)) 25 ml IVP AD PRN PRN Reason: Hypoglycemia Stop: 01/22/19 03:05 Furosemide (Lasix) 40 mg IVP BIDDIURETIC [facility] Stop: 01/22/19 17:01 Glucagon (Glucagen) 1 mg IM ONCE PRN PRN Reason: Hypoglycemia Stop: 01/22/19 03:05 Glucose (Gluctose) 15 gm PO ONCE PRN PRN Reason: Hypoglycemia Stop: 01/22/19 03:05 Glucose (Gluctose) 30 gm PO ONCE PRN PRN Reason: Hypoglycemia Stop: 01/22/19 03:05 Heparin Sodium (Porcine) (Heparin) 5,000 unit SQ Q8HCO RIA Stop: 01/22/19 06:01 Last Admin: 07/23/18 12:56 Dose: 5,000 unit Dextrose (Dextrose 5%) 1,000 mls @ 100 mls/hr IVC .Q10H PRN PRN Reason: HYPOGLYCEMIA Stop: 01/22/19 03:05 Vancomycin HCl 2,000 mg/ (Sodium Chloride) 500 mls @ 250 mls/hr IVPB Q12H [facility] Stop: 01/22/19 13:01 Last Admin: 07/23/18 12:56 Dose: 250 mls/hr Insulin Human Lispro (Humalog) 0 units SQ HS RIA PRN Reason: Protocol Stop: 01/22/19 21:01 Insulin Human Lispro (Humalog) 0 units SQ TIDAC RIA PRN Reason: Protocol Stop: 01/22/19 07:31 Last Admin: 07/23/18 12:52 Dose: Not Given Metoprolol Succinate (Toprol Xl) 50 mg PO DAILY [facility] Stop: 01/22/19 09:01 Last Admin: 07/23/18 08:24 Dose: 50 mg Naloxone HCl (Narcan) 0.4 mg IVP Q2MIN PRN PRN Reason: SEE COMMENTS Stop: 01/22/19 02:33 - Imaging and Cardiology Echo: report reviewed - EKG Interpretation EKG results cardiology: personally reviewed (SR), other (12 hr tele AVG HR) Consult Discharge Plan - Plan Referrals: Ephraim Esquivel MD [Primary Care Provider] -
--- NOTE | 2018-07-23 14:34 | Vascular/Endovasc Consult Note ---
Date of Encounter: 07/23/18 Time of Encounter: 14:31 Assessment and Plan (1) Pulmonary hypertension Current Visit: Yes Status: Acute Echocardiogram from today demonstrates significant pulmonary hypertension. Patient denies having been informed of having this diagnosis in the past. (2) Obesities, morbid Current Visit: Yes Status: Chronic Patient has chronic obesity. His weight on admission was 501 pounds. (3) Cellulitis Current Visit: Yes Status: Acute Patient has cellulitis of the left pretibial region. He also has chronic venous stasis changes. Recommend consultation with wound care services to assist in management of the left calf wound. Also recommend podiatry consultation for nail care. Qualifiers: Site of cellulitis: extremity Site of cellulitis of extremity: lower extremity Laterality: left Qualified Code(s): L03.116 - Cellulitis of left lower limb (4) Acute exacerbation of CHF (congestive heart failure) Current Visit: Yes Status: Acute Patient has significant pulmonary and cardiac malfunction. Qualifiers: Heart failure type: right-sided Qualified Code(s): I50.813 - Acute on chronic right heart failure (5) Venous stasis of lower extremity Current Visit: Yes Status: Acute Patient has chronic venous stasis changes. He has combination of venous stasis ulcerations and cellulitis at this time. Recommend consultation to wound care to assist in dressing management and compression for lower extremities. - History of Present Illness Consult date: 07/23/18 Consult reason: Discoloration of toes Chief complaint: Leg swelling and drainage History of present illness: Mr. Flores is a 62 year old male Who was admitted last night via the ER. The patient's family noted that there was discoloration of his toes and they were concerned about circulation. They then took him to the emergency room and had him admitted. He has a history of chronic lower extremity cellulitis. He has an ongoing issue with the left lower extremity over the past number of weeks noted has been worsening in the recent weeks. He also has had watery drainage from his left leg. The patient is markedly obese and weighs approximately 500 pounds. He does very little walking during the day and is functionally a bed bound individual. The patient has been seen in the wound clinic and in the vascular surgery clinic in the past. He was found to have an ankle-brachial index in October 2014 of 1.15 on the right and 1.2 on the left. The patient had noninvasive studies earlier today were similar normal values were identified. Also of note the patient has had lower extremity venous testing in September 2014. This demonstrated right greater saphenous vein reflux. Each also be noted that when he was in the vascular surgery clinic in 2014 his weight was 428 pounds. His weight upon admission was 501 pounds. The patient also had an echocardiogram earlier today. This demonstrates marked pulmonary hypertension with a right ventricular pressure of greater than 60 mmHg. Past Med Surg Social Fam HX - Past Medical History Medical history: diabetes, hypertension Psychiatric history: no psych history - Past Surgical History Additional surgical history: right foot surgery - Social History Smoking Status: Former smoker Alcohol use: none Drug use: none - Family History Mother Family Member Ethnicity: Non- Living Status: Age at : 71 Hx Family Cancer: Yes (lung/brain cancer) Hx Family Endocrine Disorder: Yes (diabetes) Father Family Member Ethnicity: Non- Living Status: Age at : 75 Hx Family Cardiac Disorders: Yes (heart attack) Medications and Allergies Aspirin Enteric Coated [Aspirin EC] 81 mg PO BID 07/22/18 [History] Atorvastatin Calcium [Lipitor] 20 mg PO HS 07/22/18 [History] Cholecalciferol (D-3) [Vitamin D] 5,000 unit PO DAILY 07/22/18 [History] Insulin ASPART [NovoLOG] 20 - 24 unit SQ TIDWM 07/22/18 [History] Insulin Glargine,Hum.rec.anlog [Lantus Solostar] 120 unit SQ HS 07/22/18 [ History] Metoprolol Succinate [Kapspargo Sprinkle] 50 mg PO DAILY 07/22/18 [History] Pioglitazone HCl/Metformin HCl [Actoplus Met Xr 30-1,000 mg Tb] 1 tab PO DAILY 07/22/18 [History] Quinapril/Hydrochlorothiazide [Quinapril-Hctz 20-12.5 mg Tab] 1 tab PO DAILY 11/08 [History] 3 Allergy/AdvReac Type Severity Reaction Status Date / Time No Known Allergies Allergy Verified 07/22/18 21:27 All Systems Review: The remainder of the systems were reviewed and are negative Exam Vital Signs, Last 4 Hours Temp Pulse Resp BP Pulse Ox 07/23/18 12:05 97.7 F 70 16 120/76 96 General: Present: Conversant, No Apparent Distress, Other (Markedly obese white male) HEENT: Present: Atraumatic, Trachea midline, Other (Markedly obese face and neck ) Neck: Absent: JVD, Left Carotid bruit, Right Carotid bruit, Midline deformity, Tracheal deviation Cardiac: Present: Reg Rate and Rhythm, Normal S1 and S2, No Murmur. Absent: Irregular Rhythm Lungs: Present: Decreased breath sounds Neuro: Present: Alert and responsive, No focal deficits noted Abdomen: Present: Soft, Non-tender, Other (Markedly obese abdomen and torso). Absent: Masses Vascular: Present: Pulse, normal (Patient has palpable pedal pulses.), Edema ( Patient has marked edema of both lower extremities.), Color/Temperature (His feet are warm to the touch.). Absent: Amputation(s) Skin: Present: Wound/ulcer(s) (Patient has diffuse superficial erosions on the anterior medial and lateral aspect of the left calf. He also has a purplish discoloration as well as some erythema. These findings are consistent with long- standing venous hypertension with stasis dermatitis. He also has a findings of chronic skin changes in the right calf though there are no ulcerations. Watery drainage is present on the wounds today.), Other (Patient has marked hypertrophic toenails and poor hygiene.) Consult Discharge Plan - Plan Referrals: Ephraim Esquivel MD [Primary Care Provider] -
[2018-07-23] MEDS: Furosemide 40 MG/4 ML VIAL IVP SCH (16:29)
[2018-07-24 02:25] LABS: Hepatitis A Antibody IgM Nonreactive (Nonreactive); Hepatitis B Core IgM Nonreactive (Nonreactive); Hepatitis C Virus Antibody Nonreactive (Nonreactive)
[2018-07-24 04:24] LABS: BUN/Creatinine Ratio 29 (6-26); Blood Urea Nitrogen 40 mg/dL (8-23); Calcium 8.5 mg/dL (8.6-10.3); Carbon Dioxide 39 mEq/L (23-29); Chloride 94 mEq/L (98-107); Glucose 136 mg/dL (70-105); Osmolality,Calculated 300 (280-300); Potassium 4.1 mEq/L (3.5-5.1); Sodium 139 mEq/L (136-145); eGFR For Non-African Americans 52 (> 60)
[2018-07-24] MEDS: *HR* Heparin 5,000 UNIT/ML VIAL SQ SCH ×3 (05:41→21:57)
[2018-07-24] MEDS: Insulin LISPRO 300 UNITS/3 ML VIAL SQ SCH ×4 (08:07→22:06)
--- NOTE | 2018-07-24 08:41 | Internal Med Progress Note ---
Hospitalist Progress Note - Encounter Date of Encounter: 07/24/18 Time of Encounter: 08:44 - Subjective Interval History: Patient with history of morbid obesity, hypertension, diabetes, chronic cellulitis. Patient was admitted with worsening left leg cellulitis also has complaint no shortness of breath with exertion urinary incontinence patient started on vancomycin 07/24 Patient seen and examined says he feels better lower extremity cellulitis looks better vascular surgery evaluation noted that the Narayan suggested podiatric consult which is ordered but pending also will place pulmonary consult because of severe pulmonary hypertension patient very likely has untreated obstructive sleep apnea - Exam Vitals: Temp Pulse Resp BP Pulse Ox 97.7 F 84 16 121/77 91 07/24/18 08:08 07/24/18 08:08 07/24/18 08:08 07/24/18 08:08 07/24/18 08:08 Exam: Gen: Vitals noted. No acute distress. Obese man HEENT: Normocephalic, atraumatic Neck: Supple. No adenopathy. No obvious JVD Cardiac: Distant heart sounds, RRR, no murmur, +S1/S2. Pulmonary: CTA bilaterally anteriorly, no wheezes, rales or rhonchi, equal chest expansion. Technically challenging exam due to size Abdomen: soft, nontender, no guarding. Skin over abdominal fold is hardened and keratotic Integument: Skin under abdominal fold and around groin is erythemic and hyperemic with minimal sloughing. There is dark erythematous skin on the left lower extremity that extends to the foot with keratotic skin at the distal extremity. There is moisture with weeping fluid in the left extremity. Extremities: 3+ lower extremity edema bilaterally, worse in left leg, legs are tender, no cyanosis or clubbing Neuro: moves all extremities, no focal deficits. A&Ox3 Psych: Appropriate mood and behavior - Assessment and Plan (1) Dyspnea Current Visit: Yes Status: Acute Assessment and Plan: Shortness of breath due to diastolic heart failure patient diuresis and well appreciated, no jugular evaluation and follow-up will continue IV diuresis (2) Obesities, morbid Current Visit: Yes Status: Chronic (3) TEAGAN (acute kidney injury) Current Visit: Yes Status: Acute Assessment and Plan: Renal function is much improved and creatinine steadily continues to decrease (4) Hepatic injury Current Visit: Yes Status: Acute Assessment and Plan: Mild likely from hepatic congestion from severe pulmonary hypertension of right- sided heart failure (5) CHF (congestive heart failure), NYHA class III Current Visit: Yes Status: Acute Assessment and Plan: Acute biventricular diastolic heart failure clinically better (6) Pulmonary HTN Current Visit: Yes Status: Acute Assessment and Plan: Severe pulmonary hypertension per echo most likely due to underlying obstructive sleep apnea patient said he used to wear BiPAP but does not want wear it consult pulmonology for further evaluation and management - Time Spent with Patient Total time spent is greater than 50% in coordination of care (as documented) at patient's floor/unit and/or counseling patient: Internal Medicine: Result - Labs CBC & Chem 7: 07/23/18 05:06 07/24/18 03:43 Labs: BMP 07/24/18 03:43 Sodium 139 Potassium 4.1 Chloride 94 L Carbon Dioxide 39 H BUN 40 H Creatinine 1.39 H Glucose 136 H Calcium 8.5 L - ABG Interpretation ABG results: PT/INR, D-dimer PT 18.0 Seconds (9.4-12.1) H 07/23/18 05:06 - Impressions Impressions Retroperitoneum Ultrasound 07/23/18 17:00 IMPRESSION: Limited negative renal ultrasound. D/ / Fermin Finley MD / Fermin Finley MD Interpreting Provider: Fermin Finley MD Echocardiogram 07/23/18 23:11 Impressions: LVEF 65%. Normal LV chamber size and function. Mildly dilated right ventricle with mild hypokinesis. Moderately dilated right atrium. No significant valvular dysfunction. Severe pulmonary hypertension. Left Ventricular Wall Motion: Rest Echo Findings All wall segments showed normal motion. Findings: Study Quality * Technically adequate exam. ECG Findings * Normal sinus rhythm. Left Ventricle * LVEF 65%. * Normal LV chamber size and function. * Normal left ventricular diastolic function. * Concentric left ventricular remodeling. Right Ventricle * Mildly dilated right ventricle. * Mild right ventricular hypokinesis. Left Atrium * Normal left atrial size. Right Atrium * Moderately dilated right atrium. Interatrial Septum * Interatrial septum not well evaluated. Aortic Valve * Trileaflet aortic valve. * Trileaflet aortic valve with normal function. * No aortic regurgitation. * No aortic stenosis. Mitral Valve * Normal mitral valve structure and function. * No mitral regurgitation. Tricuspid Valve * Trace tricuspid regurgitation. * Estimated RVSP is 64 mmHg. * Estimated RA pressure is 15 mmHg. * Severe pulmonary hypertension. Pulmonic Valve * Pulmonic valve not well visualized. * Trace pulmonic regurgitation. Aorta * Normally sized aortic root. Pericardium * The pericardium appears normal. IVC * The IVC is dilated. * < 50% respiratory change. Consult Discharge Plan - Plan Referrals: Ephraim Esquivel MD [Primary Care Provider] - (1) Dyspnea Qualifiers: Dyspnea type: unspecified Qualified Code(s): R06.00 - Dyspnea, unspecified (4) Hepatic injury Qualifiers: Encounter type: initial encounter Qualified Code(s): S36.119A - Unspecified injury of liver, initial encounter (5) CHF (congestive heart failure), NYHA class III Qualifiers: Congestive heart failure type: unspecified Qualified Code(s): I50.9 - Heart failure, unspecified
[2018-07-24] MEDS: Clotrimazole/Betameth Dip CRM 45 APPL/45 GM TUBE TP SCH ×2 (08:56→21:40)
[2018-07-24] MEDS: Furosemide 40 MG/4 ML VIAL IVP SCH ×2 (08:56→17:16)
[2018-07-24] MEDS: Aspirin Enteric Coated 81 MG Tablet PO SCH ×2 (08:56→21:57)
[2018-07-24] MEDS: Metoprolol XL (24 HR) Succ 50 MG TAB.ER.24H PO SCH (08:56)
--- NOTE | 2018-07-24 11:21 | Pulmonology Consult Note ---
<Stevie Salamanca W - Last Filed: 07/24/18 16:56> Date of Encounter: 07/24/18 Medications and Allergies Aspirin Enteric Coated [Aspirin EC] 81 mg PO BID 07/22/18 [History] Atorvastatin Calcium [Lipitor] 20 mg PO HS 07/22/18 [History] Cholecalciferol (D-3) [Vitamin D] 5,000 unit PO DAILY 07/22/18 [History] Insulin ASPART [NovoLOG] 20 - 24 unit SQ TIDWM 07/22/18 [History] Insulin Glargine,Hum.rec.anlog [Lantus Solostar] 120 unit SQ HS 07/22/18 [ History] Metoprolol Succinate [Kapspargo Sprinkle] 50 mg PO DAILY 07/22/18 [History] Pioglitazone HCl/Metformin HCl [Actoplus Met Xr 30-1,000 mg Tb] 1 tab PO DAILY 07/22/18 [History] Quinapril/Hydrochlorothiazide [Quinapril-Hctz 20-12.5 mg Tab] 1 tab PO DAILY 11/08 [History] 3 Allergy/AdvReac Type Severity Reaction Status Date / Time No Known Allergies Allergy Verified 07/22/18 21:27 All Systems: The remainder of the systems were reviewed and are negative Results - Laboratory Findings CBC and BMP: 07/23/18 05:06 07/24/18 03:43 PT/INR, D-dimer PT 18.0 Seconds (9.4-12.1) H 07/23/18 05:06 Abnormal lab findings: Abnormal lab results MCH 24.6 pg (28.0-33.3) L 07/23/18 05:06 MCHC 29.2 g/dL (31.6-35.5) L 07/23/18 05:06 RDW 18.6 % (11.5-14.5) H 07/23/18 05:06 Nucleated RBCs/100 WBC 0.8 /100 WBC (0) H 07/23/18 05:06 Hypochromasia Present (Not Present) A 07/23/18 05:06 ESR 34 mm/hr (0-10) H 07/24/18 03:43 PT 18.0 Seconds (9.4-12.1) H 07/23/18 05:06 Chloride 94 mEq/L (98-107) L 07/24/18 03:43 Carbon Dioxide 39 mEq/L (23-29) H 07/24/18 03:43 BUN 40 mg/dL (8-23) H 07/24/18 03:43 Creatinine 1.39 mg/dL (0.70-1.30) H 07/24/18 03:43 Est GFR (Non-Af Amer) 52 (> 60) L 07/24/18 03:43 BUN/Creatinine Ratio 29 (6-26) H 07/24/18 03:43 Glucose 136 mg/dL (70-105) H 07/24/18 03:43 Calcium 8.5 mg/dL (8.6-10.3) L 07/24/18 03:43 Total Bilirubin 1.7 mg/dL (0.3-1.0) H 07/23/18 05:06 Direct Bilirubin 0.8 mg/dL (0.0-0.2) H 07/23/18 05:06 AST 42 Units/L (13-39) H 07/23/18 05:06 ALT 60 Units/L (7-52) H 07/23/18 05:06 C-Reactive Protein 29 mg/L (Less than 10) H 07/24/18 03:43 B-Natriuretic Peptide 704 pg/mL (Less than 100) H 07/24/18 03:43 Albumin 3.2 g/dL (3.5-5.7) L 07/23/18 05:06 Globulin 3.7 g/dL (2.4-3.5) H 07/23/18 05:06 Albumin/Globulin Ratio 0.9 (1.1-2.2) L 07/23/18 05:06 HDL Cholesterol 28 mg/dL (40-59) L 07/23/18 05:06 Urine Protein 30 mg/dL (Neg-Trace) H 07/22/18 22:22 Urine Bilirubin Small (Negative) H 07/22/18 22:22 Urine Urobilinogen 4.0 mg/dL (Normal) H 07/22/18 22:22 Urine Microscopic RBC 3-5 per hpf (0-3) H 07/22/18 22:22 Ur Squamous Epith Cells Many per lpf (None-Few) H 07/22/18 22:22 Hyaline Casts Many per lpf (None-Few) H 07/22/18 22:22 Urine Mucus Many (Few) H 07/22/18 22:22 Urine Total Protein 18 mg/dL (1-14) H 07/23/18 03:33 - Clinical Findings Intake & Output: Intake & Output 07/24/18 07/24/18 07/24/18 07:59 15:59 23:59 Intake Total 0 / 0 Output Total 625 / 625 800 / 800 Balance -625 / -625 -800 / -800 Weight 222.4 kg Consult Discharge Plan - Plan Referrals: Ephraim Esquivel MD [Primary Care Provider] - - Attending Attestation I examined this patient and my medical decision-making was reviewed with the Resident Physician. I agree with the documented findings, disposition and treatment plan as described except to the extent set forth below. We independently had [id number] contact with the patient Patient seen and examined at bedside Labs, radiology, chart personally reviewed. Impression: 1. Chronic Hypoxic Respiratory Failure 2. Pulmonary HTN - likely WHO group 3 disease secondary to untreated BRENDA and possibly COPD cannot fully exclude possibility of group 1 (pulmonary arterial hypertension) or even less likely but possible given it chronic immobility WHO group for disease chronic thromboembolic pulmonary hypertension. I suspect that the involvement of his left heart if is minor based upon last echocardiogram 3. BRENDA 4. Supermorbid obesity with OHS 5. Suspected COPD 6. Chronic Cough 7. Former Smoker Recs: 1. Continue supplemental oxygen to keep saturation greater than 88% at all times 2. Oxygen as outlined above, I do not think that further diuresis is beneficial and likely could lead to worsening renal dysfunction and hypotension recommend VQ scan while inpatient, outpatient polysomnogram which I will expedite, outpatient PFTs, connective-tissue disease panel, check HIV 3. Check morning ABG we will try to qualify for NIV while inpatient but regardless will need Outpatient polysomnogram 4. Weight loss encouraged 5. Start Symbicort 160/4.52 puffs twice a day. Hourly albuterol as needed 6. I suspect this is in large part related to #5. Thank you for this consultation pulmonary will continue to follow <Rodolfo Santos - Last Filed: 07/24/18 17:52> Date of Encounter: 07/24/18 Time of Encounter: 11:45 Assessment and Plan (1) Chronic respiratory failure with hypoxia Current Visit: Yes Status: Acute - Likely due to newly diagnosed pulmonary hypertension. Patient had a RVEF of 64%. It could also be due to diastolic dysfunction (LVEF: 60%) . Patient could also have suspected COPD component because he had expiratory wheezing on physical exam, although he does not have an established diagnosis for COPD -Currently on Symbicort 2 puffs twice a day, albuterol when necessary. Patient is on 3 L of NC satting at 91% -Continue to monitor, follow up with pulmonology as an outpatient for PFTs (2) Pulmonary hypertension Current Visit: Yes Status: Acute - likely due to morbid obesity, BRENDA and diastolic dysfunction. patient was on BiPAP 5 yrs ago but has not used to since then. Owing to his morbid obesity and sedentary lifestyle, one cannot rule out the likelihood of thromboembolism contributing to pulmonary hypertension. - patient Elizabeth dyspnea when he was admitted to the hospital. Denies any episode dizziness or chest pressure. endorses being SOB when he sleeps on his back but not when he is L sided lateral recumbent - Patient currently on 3L oxygen . continue oxygen to keep SPO2 > 88%. - V/Q scan pending. SUE, RF, CCP IgG studies pending. - Follow up with pulmonology as an outpatient for PFTs. consider sleep study to get back on using the BiPAP. - (3) Diastolic CHF Current Visit: Yes Status: Acute - likely due to his Hx of HTN. - most recent Echocardiogram showed an LVEF: 65% with RVSP : 64mm and moderately dialted R atrium - on Lasix 40 mg , 2L NC -strict Is/Os, f/u with Cardiology as an outpatient Qualifiers: Qualified Code(s): I50.30 - Unspecified diastolic (congestive) heart failure (4) BRENDA (obstructive sleep apnea) Current Visit: Yes Status: Acute -History of obstructive sleep apnea. He was on BiPAPabout 5 years ago but has not used it ever since then. -ABG has been ordered for tomorrow morning so that patient can qualify for noninvasive ventilation while inpatient -Patient will benefit from a sleep study as an outpatient . 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 Patient needs to follow- up with inspector optical instrument get workup done to rule in/out this possibility. - Recommended guaifenesin if the cough worsens. (7) Former smoker Current Visit: Yes Status: Acute Patient quit smoking in the year 1992 and smoked about 20 years. This puts him at high risk for developing COPD. - (8) Suspected chronic obstructive pulmonary disease based on initial evaluation Current Visit: Yes Status: Acute Although patient does not have an established diagnosis of COPD, he does have expiratory wheezing on physical exam with suggest that he might have an underlying COPD. He does not endorse any productive sputum production but does have a chronic cough. -Recommended Symbicort 2 puffs twice a day. Hourly albuterol PRN -Patient will benefit from a pulmonary function test as an outpatient History of Present Illness Consult date: 07/24/18 Chief complaint: pulomnary HTN History of present illness: Mr Flores is a 62 y.o pleasant male with a PMHx of obesity ( 70.4), DM, HTN, Chronic venous stasis who was admitted to the hospital for dyspnea and LE edema. Patient underwent Echocardiography and was found to have diastolic dysfunction (LVEF :65%) with RVSP : 64mm . (normal is 15-45 mm Hg for his age) His BNP wa salso elevated (731) . We were consulted for this newly diagnosed pulmonary HTN. Patient endorses he used to be on BiPAP/CPAP 4-5 yrs ago but never used it since then. He endorses no difficulty as long as he sleeps on his L side .However, he does endorse being wheezy if he sleeps on his back. Patient retired from the [employer] in 2012, has no exposure to any birds or farm animals, denies any Hx of tobacco use, or EtOH, denies any Hx of liver disease or portal HTN , Hx of congenital heart disease, no known diagnosis of COPD, interstitial lung disease , or any Hx of thromboembolic occlusion. Currently he is on lasix 40 mg IV for his edema and 2L of NC. Past Med Surg Social Fam HX - Past Medical History Medical history: diabetes, hypertension Psychiatric history: no psych history - Past Surgical History Additional surgical history: right foot surgery - Social History Smoking Status: Former smoker Alcohol use: none Drug use: none - Family History Mother Family Member Ethnicity: Non- Living Status: Age at : 71 Hx Family Cancer: Yes (lung/brain cancer) Hx Family Endocrine Disorder: Yes (diabetes) Father Family Member Ethnicity: Non- Living Status: Age at : 75 Hx Family Cardiac Disorders: Yes (heart attack) All Systems: The remainder of the systems were reviewed and are negative Physical Examination Vital Signs: Vital Signs, Last 4 Hours Temp Pulse Resp BP Pulse Ox 07/24/18 11:10 98.1 F 78 18 101/61 92 07/24/18 08:08 97.7 F 84 16 121/77 91 General appearance: no acute distress Effort: mildly labored Auscultation: bilateral: wheezes (expiraotry wheezes) Percussion: bilateral: not dull Tactile fremitus: bilateral: normal Cardiovascular: regular rate and rhythm Gastrointestinal: soft, non-tender, non-distended Results - Laboratory Findings CBC and BMP: 07/23/18 05:06 07/24/18 03:43 PT/INR, D-dimer PT 18.0 Seconds (9.4-12.1) H 07/23/18 05:06 Abnormal lab findings: Abnormal lab results MCH 24.6 pg (28.0-33.3) L 07/23/18 05:06 MCHC 29.2 g/dL (31.6-35.5) L 07/23/18 05:06 RDW 18.6 % (11.5-14.5) H 07/23/18 05:06 Nucleated RBCs/100 WBC 0.8 /100 WBC (0) H 07/23/18 05:06 Hypochromasia Present (Not Present) A 07/23/18 05:06 ESR 34 mm/hr (0-10) H 07/24/18 03:43 PT 18.0 Seconds (9.4-12.1) H 07/23/18 05:06 Chloride 94 mEq/L (98-107) L 07/24/18 03:43 Carbon Dioxide 39 mEq/L (23-29) H 07/24/18 03:43 BUN 40 mg/dL (8-23) H 07/24/18 03:43 Creatinine 1.39 mg/dL (0.70-1.30) H 07/24/18 03:43 Est GFR (Non-Af Amer) 52 (> 60) L 07/24/18 03:43 BUN/Creatinine Ratio 29 (6-26) H 07/24/18 03:43 Glucose 136 mg/dL (70-105) H 07/24/18 03:43 POC Glucose 126 mg/dL (70-99) H 07/24/18 05:36 Calcium 8.5 mg/dL (8.6-10.3) L 07/24/18 03:43 Total Bilirubin 1.7 mg/dL (0.3-1.0) H 07/23/18 05:06 Direct Bilirubin 0.8 mg/dL (0.0-0.2) H 07/23/18 05:06 AST 42 Units/L (13-39) H 07/23/18 05:06 ALT 60 Units/L (7-52) H 07/23/18 05:06 C-Reactive Protein 29 mg/L (Less than 10) H 07/24/18 03:43 B-Natriuretic Peptide 704 pg/mL (Less than 100) H 07/24/18 03:43 Albumin 3.2 g/dL (3.5-5.7) L 07/23/18 05:06 Globulin 3.7 g/dL (2.4-3.5) H 07/23/18 05:06 Albumin/Globulin Ratio 0.9 (1.1-2.2) L 07/23/18 05:06 HDL Cholesterol 28 mg/dL (40-59) L 07/23/18 05:06 Urine Protein 30 mg/dL (Neg-Trace) H 07/22/18 22:22 Urine Bilirubin Small (Negative) H 07/22/18 22:22 Urine Urobilinogen 4.0 mg/dL (Normal) H 07/22/18 22:22 Urine Microscopic RBC 3-5 per hpf (0-3) H 07/22/18 22:22 Ur Squamous Epith Cells Many per lpf (None-Few) H 07/22/18 22:22 Hyaline Casts Many per lpf (None-Few) H 07/22/18 22:22 Urine Mucus Many (Few) H 07/22/18 22:22 Urine Total Protein 18 mg/dL (1-14) H 07/23/18 03:33 - Clinical Findings Intake & Output: Intake & Output 07/23/18 07/24/18 07/24/18 23:59 07:59 15:59 Intake Total 0 / 0 0 / 0 Output Total 1200 / 1200 625 / 625 800 / 800 Balance -1200 / -1200 -625 / -625 -800 / -800 Weight 222.4 kg
--- NOTE | 2018-07-24 11:41 | Cardiology Progress Note ---
Date of Encounter: 07/24/18 Time of Encounter: 11:39 Assessment and Plan (1) Acute exacerbation of CHF (congestive heart failure) Current Visit: Yes Status: Acute Presents with multiple complaints, including dyspnea and LE edema. TTE resulted--LVEF 65%. Normal LV chamber size and function. Mildly dilated right ventricle with mild hypokinesis. Moderately dilated right atrium. No significant valvular dysfunction. Severe pulmonary hypertension est RVSP 64mmHg. BNP 731, CXR with cardiomegaly and right sided pleural effusion. Fluid overload/ CHF. Acute CHF, likely diastolic severe pHTN, likely 2/2 diastolic dysfunction, morbid obesity, probable BRENDA Agree with IV diuresis--IV Lasix 40mg BID. Presented with TEAGAN, improving with diuresis. Monitor closely. Cumulative I/O -4825. Symptoms improving. Continue IV diuresis and transition to PO prior to d/c. Recommend Strict I/Os, Na and fluid restriction, daily weights. Cardiology signing off. Reconsult PRN. Qualifiers: Heart failure type: diastolic Qualified Code(s): I50.33 - Acute on chronic diastolic (congestive) heart failure Discussion w patient/family: The assessment and plan as outlined above was discussed with the patient and/or family members who expressed understanding and agreement. All questions were answered. Thank you for involving us in the care of your patient. Please call with any questions. I will discuss all the above with Dr. Gomez and make changes as necessary. Subjective Principal diagnosis: CHF, cellulitis Interval history: Reports dyspnea is improved today. Denies chest pain. Objective Vital Signs, Last 4 Hours Temp Pulse Resp BP Pulse Ox 07/24/18 11:10 98.1 F 78 18 101/61 92 07/24/18 08:08 97.7 F 84 16 121/77 91 Vital Signs Temp Pulse Resp BP Pulse Ox 07/24/18 11:10 98.1 F 78 18 101/61 92 07/24/18 08:08 97.7 F 84 16 121/77 91 07/24/18 05:49 98 07/24/18 03:27 98.3 F 78 15 93/42 92 07/23/18 22:56 98.3 F 79 15 96/53 91 07/23/18 20:55 95 07/23/18 19:00 98.4 F 79 15 108/63 93 07/23/18 14:54 97.5 F L 74 18 104/66 100 07/23/18 12:05 97.7 F 70 16 120/76 96 Intake and Output 07/23/18 07/24/18 07/24/18 23:59 07:59 15:59 Intake Total 0 / 0 0 / 0 Output Total 1200 / 1200 625 / 625 800 / 800 Balance -1200 / -1200 -625 / -625 -800 / -800 Intake: Oral 0 / 0 0 / 0 Output: Urine 850 / 850 Catheter 350 / 350 625 / 625 800 / 800 Other: Weight 222.4 kg Blood Glucose* 113 126 82 Patient Weight 07/24/18 23:59 Weight 222.4 kg General: Conversant, No Apparent Distress HEENT: Atraumatic, Normocephaly, Mucus Membranes Moist Neck: Normal carotid pulses Cardiac: Reg Rate and Rhythm, Normal S1 and S2, No Murmur Lungs: Other (diminished) Neuro: Alert and responsive, No focal deficits noted Abdomen: Soft, Non-Tender Skin: No rashes noted on visualized skin Musculoskeletal: No Chest Wall Tenderness Extremities: Other (3+ BLE edema, LLE worse than right.) Results 07/23/18 05:06 07/24/18 03:43 Lab Results 07/24/18 07/24/18 03:43 03:43 Sodium 139 Potassium 4.1 Chloride 94 L Carbon Dioxide 39 H BUN 40 H Creatinine 1.39 H Glucose 136 H Calcium 8.5 L B-Natriuretic Peptide 704 H BMP 07/24/18 Range/Units 03:43 Sodium 139 (136-145) mEq/L Potassium 4.1 (3.5-5.1) mEq/L Chloride 94 L (98-107) mEq/L Carbon Dioxide 39 H (23-29) mEq/L BUN 40 H (8-23) mg/dL Creatinine 1.39 H (0.70-1.30) mg/dL Glucose 136 H (70-105) mg/dL Calcium 8.5 L (8.6-10.3) mg/dL Impressions Retroperitoneum Ultrasound 07/23/18 17:00 IMPRESSION: Limited negative renal ultrasound. D/ / Fermin Finley MD / Fermin Finley MD Interpreting Provider: Fermin Finley MD Echocardiogram 07/23/18 23:11 Impressions: LVEF 65%. Normal LV chamber size and function. Mildly dilated right ventricle with mild hypokinesis. Moderately dilated right atrium. No significant valvular dysfunction. Severe pulmonary hypertension. Left Ventricular Wall Motion: Rest Echo Findings All wall segments showed normal motion. Findings: Study Quality * Technically adequate exam. ECG Findings * Normal sinus rhythm. Left Ventricle * LVEF 65%. * Normal LV chamber size and function. * Normal left ventricular diastolic function. * Concentric left ventricular remodeling. Right Ventricle * Mildly dilated right ventricle. * Mild right ventricular hypokinesis. Left Atrium * Normal left atrial size. Right Atrium * Moderately dilated right atrium. Active Medications Aspirin (Aspirin Ec) 81 mg PO BID [facility] Stop: 01/22/19 09:01 Last Admin: 07/24/18 08:56 Dose: 81 mg Betamethasone/Clotrimazole (Lotrisone Crm) 1 appl TP BID [facility] Stop: 01/22/19 09:46 Last Admin: 07/24/18 08:56 Dose: 1 appl Dextrose/Water (Dextrose 50% (Syg)) 25 ml IVP AD PRN PRN Reason: Hypoglycemia Stop: 01/22/19 03:05 Furosemide (Lasix) 40 mg IVP BIDDIURETIC [facility] Stop: 01/22/19 17:01 Last Admin: 07/24/18 08:56 Dose: 40 mg Glucagon (Glucagen) 1 mg IM ONCE PRN PRN Reason: Hypoglycemia Stop: 01/22/19 03:05 Glucose (Gluctose) 15 gm PO ONCE PRN PRN Reason: Hypoglycemia Stop: 01/22/19 03:05 Glucose (Gluctose) 30 gm PO ONCE PRN PRN Reason: Hypoglycemia Stop: 01/22/19 03:05 Heparin Sodium (Porcine) (Heparin) 5,000 unit SQ Q8HCO [facility] Stop: 01/22/19 06:01 Last Admin: 07/24/18 05:41 Dose: 5,000 unit Dextrose (Dextrose 5%) 1,000 mls @ 100 mls/hr IVC .Q10H PRN PRN Reason: HYPOGLYCEMIA Stop: 01/22/19 03:05 Insulin Human Lispro (Humalog) 0 units SQ HS RIA PRN Reason: Protocol Stop: 01/22/19 21:01 Last Admin: 07/23/18 20:58 Dose: Not Given Insulin Human Lispro (Humalog) 0 units SQ TIDAC RIA PRN Reason: Protocol Stop: 01/22/19 07:31 Last Admin: 07/24/18 11:12 Dose: Not Given Metoprolol Succinate (Toprol Xl) 50 mg PO DAILY [facility] Stop: 01/22/19 09:01 Last Admin: 07/24/18 08:56 Dose: 50 mg Naloxone HCl (Narcan) 0.4 mg IVP Q2MIN PRN PRN Reason: SEE COMMENTS Stop: 01/22/19 02:33 Interatrial Septum * Interatrial septum not well evaluated. Aortic Valve * Trileaflet aortic valve. * Trileaflet aortic valve with normal function. * No aortic regurgitation. * No aortic stenosis. Mitral Valve * Normal mitral valve structure and function. * No mitral regurgitation. Tricuspid Valve * Trace tricuspid regurgitation. * Estimated RVSP is 64 mmHg. * Estimated RA pressure is 15 mmHg. * Severe pulmonary hypertension. Pulmonic Valve * Pulmonic valve not well visualized. * Trace pulmonic regurgitation. Aorta * Normally sized aortic root. Pericardium * The pericardium appears normal. IVC * The IVC is dilated. * < 50% respiratory change. Liver Ultrasound 07/24/18 10:00 IMPRESSION: 1. Hepatic steatosis. D/ / Sim Page MD / Sim Page MD Interpreting Provider: Sim Page MD - Imaging and Cardiology Echo: report reviewed - EKG Interpretation EKG results cardiology: other (12 hr tele AVG HR 78, SR, no significant pauses or arrhythmias) Consult Discharge Plan - Plan Referrals: Ephraim Esquivel MD [Primary Care Provider] -
--- NOTE | 2018-07-24 14:15 | Infectious Disease Progress No ---
Date of Encounter: 07/24/18 Time of Encounter: 14:11 - Assessment and Plan (1) Venous stasis of lower extremity Current Visit: Yes Status: Acute Location: BLE, left>right. LLE is beefy red, but non-tender and not warm to touch. The skin changes have been constant for the last 5 years and are unchanged. Unlikely that this is cellulitis and more likely to be related to PVD. The patient has no sepsis criteria. Recommend Podiatry/wound care to evaluate. Recommend Vascular to evaluate. Appreciate recommendations. Consider venous doppler study.--> pending. Check ESR and CRP--> 34 and 29, respectively. Unable to perform CT scan due to patient is over weight limit for CT table. ABIs ordered by the primary team and pending completion. Vancomycin discontinued yesterday. Continue to observe off antibiotics. No further recommendations from the ID team. We will sign off. Please re- consult if needed. (2) Pleural effusion Current Visit: Yes Status: Acute Location: Right lung. Likely secondary to CHF. CXR showed moderate right pleural effusion. Recommend pulmonology to evaluate. Diuresis/thoracentesis per the primary and pulmonology teams. (3) TEAGAN (acute kidney injury) Current Visit: Yes Status: Acute Serum creatinine elevated at 1.97 on admission. Etiology unclear. Improved. Continue to trend. Dose-adjust medications and avoid nephrotoxins. Vancomycin stopped. (4) Acute exacerbation of CHF (congestive heart failure) Current Visit: Yes Status: Acute Cardiology consulted. Await recommendations. Qualifiers: Heart failure type: diastolic Qualified Code(s): I50.33 - Acute on chronic diastolic (congestive) heart failure (5) Dyspnea Current Visit: Yes Status: Acute Likely secondary to CHF and pleural effusion. Management per the primary team. Qualifiers: Dyspnea type: unspecified Qualified Code(s): R06.00 - Dyspnea, unspecified (6) Urinary incontinence Current Visit: Yes Status: Acute Etiology unclear. Recommend urology to evaluate. Qualifiers: Urinary Incontinence type: unspecified incontinence Qualified Code(s): R32 - Unspecified urinary incontinence (7) Obesities, morbid Current Visit: Yes Status: Chronic (8) Diabetes Current Visit: Yes Status: Acute Recommend aggressive glucose monitoring and control to promote healing and prevent re-infection. Management per the primary team. 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 (10) Hepatic injury Current Visit: Yes Status: Acute INR 1.7 on admission. LEFT slightly elevated. Continue to trend. Recommend GI to evaluate. Qualifiers: Encounter type: initial encounter Qualified Code(s): S36.119A - Unspecified injury of liver, initial encounter - Subjective Interval history: Patient seen and examined with his daughter at the bedside. No acute events noted overnight. Patient states overall he feels better today. Denies any fevers or chills or rigors. Denies chest pain or cough. Reports shortness of breath at rest and exertion. Denies nausea, vomiting, diarrhea, constipation. Denies abdominal pain or appetite changes. Solorio catheter remains patent. States he cannot see his leg due to his large abdomen and he is unsure if it looks any better today. He reports pain with palpation only. He denies any oral thrush or new skin lesions. Infect Dis PN-Objective Data - Labs CBC & Chem 7: 07/23/18 05:06 07/25/18 08:04 Labs: Laboratory Results - last 24 hr 07/23/18 07/23/18 07/23/18 07:53 12:05 12:09 ESR Sodium Potassium Chloride Carbon Dioxide BUN Creatinine Est GFR ( Amer) Est GFR (Non-Af Amer) BUN/Creatinine Ratio Glucose POC Glucose 74 44 L* 43 L* Calculated Osmolality Calcium C-Reactive Protein B-Natriuretic Peptide 07/23/18 07/23/18 07/23/18 12:45 16:23 20:50 ESR Sodium Potassium Chloride Carbon Dioxide BUN Creatinine Est GFR ( Amer) Est GFR (Non-Af Amer) BUN/Creatinine Ratio Glucose POC Glucose 65 L 78 113 H Calculated Osmolality Calcium C-Reactive Protein B-Natriuretic Peptide 07/24/18 07/24/18 07/24/18 03:43 03:43 03:43 ESR 34 H Sodium 139 Potassium 4.1 Chloride 94 L Carbon Dioxide 39 H BUN 40 H Creatinine 1.39 H Est GFR ( Amer) > 60 Est GFR (Non-Af Amer) 52 L BUN/Creatinine Ratio 29 H Glucose 136 H POC Glucose Calculated Osmolality 300 Calcium 8.5 L C-Reactive Protein 29 H B-Natriuretic Peptide 07/24/18 07/24/18 07/24/18 03:43 05:36 08:03 ESR Sodium Potassium Chloride Carbon Dioxide BUN Creatinine Est GFR ( Amer) Est GFR (Non-Af Amer) BUN/Creatinine Ratio Glucose POC Glucose 126 H 94 Calculated Osmolality Calcium C-Reactive Protein B-Natriuretic Peptide 704 H 07/24/18 11:12 ESR Sodium Potassium Chloride Carbon Dioxide BUN Creatinine Est GFR ( Amer) Est GFR (Non-Af Amer) BUN/Creatinine Ratio Glucose POC Glucose 82 Calculated Osmolality Calcium C-Reactive Protein B-Natriuretic Peptide - Impressions Impressions Retroperitoneum Ultrasound 07/23/18 17:00 IMPRESSION: Limited negative renal ultrasound. D/ / Fermin Finley MD / Fermin Finley MD Interpreting Provider: Fermin Finley MD Liver Ultrasound 07/24/18 10:00 IMPRESSION: 1. Hepatic steatosis. D/ / Sim Page MD / Sim Page MD Interpreting Provider: Sim Page MD Exam - Constitutional Vitals: Temp Pulse Resp BP Pulse Ox 98.1 F 78 18 101/61 92 07/24/18 11:10 07/24/18 11:10 07/24/18 11:10 07/24/18 11:10 07/24/18 11:10 General appearance: cooperative, morbidly obese, no acute distress - Head Head exam: Present: atraumatic, normal inspection, normocephalic - Eye Eye exam: Present: EOMI, normal appearance, PERRL Pupils: Present: normal accommodation - ENT ENT exam: Present: mucous membranes moist - Neck Neck exam: Present: normal inspection - Respiratory Respiratory exam: Present: CTAB. Absent: rales, respiratory distress, rhonchi, wheezes - Cardiovascular Cardiovascular exam: Present: RRR, +S1, +S2 - GI/Abdominal GI/Abdominal exam: Present: distended (obese), normal bowel sounds, soft. Absent: tenderness - Extremities Exam Extremities exam: Present: pedal edema (2+ ). Absent: normal inspection ( Erythema noted to the lower portion of the RLE without warmth. No tenderness noted on palpation today.), tenderness - Neurological Exam Neurological exam: Present: alert, oriented X3, no focal deficits - Psychiatric Psychiatric exam: Present: normal affect, normal mood - Skin Skin exam: Present: dry, intact, normal color, warm Consult Discharge Plan - Plan Referrals: Ephraim Esquivel MD [Primary Care Provider] - - Attending Attestation I examined this patient and my medical decision-making was reviewed with the Resident Physician. I agree with the documented findings, disposition and treatment plan as described except to the extent set forth below.
--- NOTE | 2018-07-24 15:59 | Podiatry Consult Note ---
Date of Encounter: 07/24/18 Time of Encounter: 12:00 Assessment and Plan (1) Venous stasis of lower extremity Current visit: Yes Status: Acute Assessment: Chronic venous insufficiency of BLE LLE>RLE Findings most consistent with venous insufficiency as opposed to cellulitis At this time would recommend UNNA boot wraps with kerlix and BRIDGET for compression and healing of venous wounds however at this time it is not advised related to CHF exacerbation Once stable consider discharge with [facility] for UNNA wraps to BLE changed MWF Would also qualify for juxtalite compression wraps to BLE - patient has compression stockings at home but voices they are very hard to get on and he cuts them to make them fit- patient also has weeping wounds Continue medical management Follow up in wound care center 1 week after discharge Pending venous doppler study ID and vascular on board and appreciated (2) Onychomycosis Current visit: Yes Status: Acute Examined nails at bedside, grossly thick mycotic nails of both feet- states nails have not been trimmed in over 2 years Needs formal nail debridement best performed in clinic with proper equipment Nails are too thick to be trimmed with only nail nippers Discussed follow up in podiatry clinic Will follow up once discharged. History of Present Illness HPI: Mr. Flores is a 62 year old male with history of diabetes, hypertension, chronic cellulitis who presents to the ED with complaint of left leg wound and cellulitis which is been getting worse over the past 2-3 weeks. LLE is beefy red , but non-tender and not warm to touch. The skin changes have been constant for the last 5 years and are unchanged. Patient states ulcerations, drainage and swelling comes and goes but never completely resolves. Check ESR and CRP--> 34 and 29, respectively. Afebrile WBC 7.5 Denies any fevers, chills, n/v or fls. Past Med Surg Social Fam HX - Past Medical History Medical history: diabetes, hypertension Psychiatric history: no psych history - Past Surgical History Additional surgical history: right foot surgery - Social History Smoking Status: Former smoker Alcohol use: none Drug use: none - Family History Mother Family Member Ethnicity: Non- Living Status: Age at : 71 Hx Family Cancer: Yes (lung/brain cancer) Hx Family Endocrine Disorder: Yes (diabetes) Father Family Member Ethnicity: Non- Living Status: Age at : 75 Hx Family Cardiac Disorders: Yes (heart attack) Medications and Allergies Aspirin Enteric Coated [Aspirin EC] 81 mg PO BID 07/22/18 [History] Atorvastatin Calcium [Lipitor] 20 mg PO HS 07/22/18 [History] Cholecalciferol (D-3) [Vitamin D] 5,000 unit PO DAILY 07/22/18 [History] Insulin ASPART [NovoLOG] 20 - 24 unit SQ TIDWM 07/22/18 [History] Insulin Glargine,Hum.rec.anlog [Lantus Solostar] 120 unit SQ HS 07/22/18 [ History] Metoprolol Succinate [Kapspargo Sprinkle] 50 mg PO DAILY 07/22/18 [History] Pioglitazone HCl/Metformin HCl [Actoplus Met Xr 30-1,000 mg Tb] 1 tab PO DAILY 07/22/18 [History] Quinapril/Hydrochlorothiazide [Quinapril-Hctz 20-12.5 mg Tab] 1 tab PO DAILY 11/08 [History] 3 Allergy/AdvReac Type Severity Reaction Status Date / Time No Known Allergies Allergy Verified 07/22/18 21:27 All Systems Reviewed: The remainder of the systems were reviewed and are negative Physical Exam - Constitutional Vitals: Temp Pulse Resp BP Pulse Ox 98.1 F 78 18 101/61 92 07/24/18 11:10 07/24/18 11:10 07/24/18 11:10 07/24/18 11:10 07/24/18 11:10 General appearance: cooperative, morbidly obese, no acute distress Exam: awake alert and oriented Pedal pulses palpable 2/4 bilaterally PT/DP Cap refill <3 seconds No calf pain to manual compression 2+ putting edema noted to BLE LLE>RLE Evidence of chronic venous changes to BLE Scant serous weeping noted to BLE again LLE>RLE minimal warmth Mild pain to palpation of entire leg No fluctuance No ascending cellulitis No appearance of bacterial infection at this time There is loss of sensation to light touch to feet, moderate touch is intact Muscle strength 5/5 and equal bilaterally, no weakness or limited ROM No rigidity No edema, pain or warmth noted to joints Warm toes to tibia Severe onychomycosis with marilyn horn deformity of nails #1 through #5 bilaterally. No skin ulceration noted surrounding nails. No appearance of bacterial infection. Results - Labs Result Diagrams: 07/23/18 05:06 07/25/18 08:04 Labs: Abnormal lab results MCH 24.6 pg (28.0-33.3) L 07/23/18 05:06 MCHC 29.2 g/dL (31.6-35.5) L 07/23/18 05:06 RDW 18.6 % (11.5-14.5) H 07/23/18 05:06 Nucleated RBCs/100 WBC 0.8 /100 WBC (0) H 07/23/18 05:06 Hypochromasia Present (Not Present) A 07/23/18 05:06 ESR 34 mm/hr (0-10) H 07/24/18 03:43 PT 18.0 Seconds (9.4-12.1) H 07/23/18 05:06 Chloride 94 mEq/L (98-107) L 07/24/18 03:43 Carbon Dioxide 39 mEq/L (23-29) H 07/24/18 03:43 BUN 40 mg/dL (8-23) H 07/24/18 03:43 Creatinine 1.39 mg/dL (0.70-1.30) H 07/24/18 03:43 Est GFR (Non-Af Amer) 52 (> 60) L 07/24/18 03:43 BUN/Creatinine Ratio 29 (6-26) H 07/24/18 03:43 Glucose 136 mg/dL (70-105) H 07/24/18 03:43 Calcium 8.5 mg/dL (8.6-10.3) L 07/24/18 03:43 Total Bilirubin 1.7 mg/dL (0.3-1.0) H 07/23/18 05:06 Direct Bilirubin 0.8 mg/dL (0.0-0.2) H 07/23/18 05:06 AST 42 Units/L (13-39) H 07/23/18 05:06 ALT 60 Units/L (7-52) H 07/23/18 05:06 C-Reactive Protein 29 mg/L (Less than 10) H 07/24/18 03:43 B-Natriuretic Peptide 704 pg/mL (Less than 100) H 07/24/18 03:43 Albumin 3.2 g/dL (3.5-5.7) L 07/23/18 05:06 Globulin 3.7 g/dL (2.4-3.5) H 07/23/18 05:06 Albumin/Globulin Ratio 0.9 (1.1-2.2) L 07/23/18 05:06 HDL Cholesterol 28 mg/dL (40-59) L 07/23/18 05:06 Urine Protein 30 mg/dL (Neg-Trace) H 07/22/18 22:22 Urine Bilirubin Small (Negative) H 07/22/18 22:22 Urine Urobilinogen 4.0 mg/dL (Normal) H 07/22/18 22:22 Urine Microscopic RBC 3-5 per hpf (0-3) H 07/22/18 22:22 Ur Squamous Epith Cells Many per lpf (None-Few) H 07/22/18 22:22 Hyaline Casts Many per lpf (None-Few) H 07/22/18 22:22 Urine Mucus Many (Few) H 07/22/18 22:22 Urine Total Protein 18 mg/dL (1-14) H 07/23/18 03:33 All other labs normal. Consult Discharge Plan - Plan Referrals: Ephraim Esquivel MD [Primary Care Provider] -
[2018-07-24] MEDS: MICONAZOLE NITRATE 57 GM TUBE TP SCH (18:19)
[2018-07-24] MEDS: Budesonide/Formoterol 80/4.5 MDI IH SCH (21:12)
[2018-07-25] MEDS: *HR* Heparin 5,000 UNIT/ML VIAL SQ SCH ×3 (05:28→21:06)
[2018-07-25] MEDS: Budesonide/Formoterol 80/4.5 MDI IH SCH ×2 (07:58→19:21)
[2018-07-25] MEDS: Insulin LISPRO 300 UNITS/3 ML VIAL SQ SCH ×3 (08:00→17:32)
[2018-07-25] MEDS: Aspirin Enteric Coated 81 MG Tablet PO SCH ×2 (08:02→21:06)
[2018-07-25] MEDS: Metoprolol XL (24 HR) Succ 50 MG TAB.ER.24H PO SCH (08:02)
--- NOTE | 2018-07-25 08:34 | Internal Med Progress Note ---
Hospitalist Progress Note - Encounter Date of Encounter: 07/25/18 Time of Encounter: 08:30 - Exam Vitals: Temp Pulse Resp BP Pulse Ox 97.5 F L 84 16 126/72 93 07/25/18 07:13 07/25/18 07:13 07/25/18 07:58 07/25/18 07:13 07/25/18 07:58 Exam: Gen: Vitals noted. No acute distress. Obese man HEENT: Normocephalic, atraumatic Neck: Supple. No adenopathy. No obvious JVD Cardiac: Distant heart sounds, RRR, no murmur, +S1/S2. Pulmonary: CTA bilaterally anteriorly, no wheezes, rales or rhonchi, equal chest expansion. Technically challenging exam due to size Abdomen: soft, nontender, no guarding. Skin over abdominal fold is hardened and keratotic Integument: Skin under abdominal fold and around groin is erythemic and hyperemic with minimal sloughing. There is dark erythematous skin on the left lower extremity that extends to the foot with keratotic skin at the distal extremity. There is moisture with weeping fluid in the left extremity. Extremities: 3+ lower extremity edema bilaterally, worse in left leg, legs are tender, no cyanosis or clubbing Neuro: moves all extremities, no focal deficits. A&Ox3 Psych: Appropriate mood and behavior - Assessment and Plan (1) Acute on chronic respiratory failure with hypoxia and hypercapnia Current Visit: Yes Status: Acute Assessment and Plan: Likely multifactorial from pPulmonary hypertension, untreated obstructive sleep apnea, obesity hypoventilation syndrome, COPD and acute worsening of chronic diastolic CHF Pulmonary following.. Continue BIPAP, started on symbicort and nebs prn. Was on lasix which has been held due to over diuresis (2) CHF (congestive heart failure), NYHA class III Current Visit: Yes Status: Acute Assessment and Plan: Patient has worsening dyspnea on exertion, elevated BNP on admission 731 Chest x-ray demonstrates right pleural effusion and pulmonary vascular congestion Echo shows severe pulmonary hypertension with dilated right atrium likely 2/2 to diastolic CHF Was on lasix, but this has been held diue to overdiuresis (3) Pulmonary hypertension Current Visit: Yes Status: Acute Assessment and Plan: See #1. Pulmonary following (4) Obesities, morbid Current Visit: Yes Status: Chronic Assessment and Plan: diet and exercise (5) Pleural effusion Current Visit: Yes Status: Acute Assessment and Plan: Moderate right pleural effusion Suspected secondary to cardiac and pulmonary causes with diastolic CHF and pulmonary hypertension Currently requires supplemental oxygen We will continue this to maintain oxygen saturation greater than 92% LAsix as needes Consider pulmonology consult (6) Diabetes Current Visit: Yes Status: Acute Assessment and Plan: Diabetes which appears to be in relatively good control Patient has been on pioglitazone which is not a great medication for him considering suspected heart failure (7) TEAGAN (acute kidney injury) Current Visit: Yes Status: Acute Assessment and Plan: Improved with diuresis (8) Hepatic injury Current Visit: Yes Status: Acute Assessment and Plan: Patient presents with mildly elevated transaminitis, INR 1.7 Likely secondary to suspected CHF and vascular congestion Trending down, monitor (9) Intertrigo Current Visit: Yes Status: Acute Assessment and Plan: On miconazole (10) Cellulitis Current Visit: Yes Status: Acute Assessment and Plan: Cellulitis of the left lower extremity, acute on chronic Antibiotics discontinued by ID, as impression is that skin changes are chronic. Ultrasound negative for DVT (11) Urinary incontinence Current Visit: Yes Status: Acute Assessment and Plan: Urinary incontinence, unknown etiology No obvious UTI on UA We will place mccloud catheter for now Retroperitoneal ultrasound (12) DVT prophylaxis Current Visit: Yes Status: Acute Assessment and Plan: SQ Heparin - Time Spent with Patient Total time spent is greater than 50% in coordination of care (as documented) at patient's floor/unit and/or counseling patient: Internal Medicine: Result - Labs CBC & Chem 7: 07/23/18 05:06 07/25/18 08:04 - ABG Interpretation ABG results: PT/INR, D-dimer PT 18.0 Seconds (9.4-12.1) H 07/23/18 05:06 - Impressions Impressions Liver Ultrasound 07/24/18 10:00 IMPRESSION: 1. Hepatic steatosis. D/ / Sim Page MD / Sim Page MD Interpreting Provider: Sim Page MD Pulmonary Perfusion Imaging 07/24/18 17:06 IMPRESSION: Low probability for pulmonary embolus. D/ / Caitlyn Bill MD / Caitlyn Bill MD Interpreting Provider: Caitlyn Bill MD Chest X-Ray 07/24/18 17:46 IMPRESSION: Persistent right basilar atelectasis with elevated right hemidiaphragm. D/ / 07/24/2018 19:50:25 Riccardo Barnhart MD / hong Interpreting Provider: Riccardo Barnhart MD Consult Discharge Plan - Plan Referrals: Ephraim Esquivel MD [Primary Care Provider] - (2) CHF (congestive heart failure), NYHA class III Qualifiers: Congestive heart failure type: unspecified Qualified Code(s): I50.9 - Heart failure, unspecified (6) Diabetes Qualifiers: Diabetes mellitus type: type 2 Diabetes mellitus care home insulin use: with long term care administrator use Diabetes mellitus complication status: with skin complications Diabetes mellitus complication detail: with dermatitis Qualified Code(s): E11.620 - Type 2 diabetes mellitus with diabetic dermatitis; 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
--- NOTE | 2018-07-25 08:46 | Pulmonology Progress Note ---
<JadynChonStevie W - Last Filed: 07/25/18 16:47> Date of Encounter: 07/25/18 Objective PUL Vital signs: Last Vital Signs Temp 98.6 F 07/25/18 14:16 Pulse 89 07/25/18 14:16 Resp 16 07/25/18 14:16 BP 134/78 07/25/18 14:16 Pulse Ox 91 07/25/18 14:16 Results - Laboratory Findings CBC and BMP: 07/23/18 05:06 07/25/18 08:04 ABG ABG pH 7.37 pH Units (7.32-7.45) 07/25/18 10:38 ABG pCO2 79 mmHg (35-45) H* 07/25/18 10:38 ABG pO2 71 mmHg (85-104) L 07/25/18 10:38 ABG O2 Saturation 92 % (95-98) L 07/25/18 10:38 PT/INR, D-dimer PT 18.0 Seconds (9.4-12.1) H 07/23/18 05:06 Abnormal lab findings: Abnormal lab results MCH 24.6 pg (28.0-33.3) L 07/23/18 05:06 MCHC 29.2 g/dL (31.6-35.5) L 07/23/18 05:06 RDW 18.6 % (11.5-14.5) H 07/23/18 05:06 Nucleated RBCs/100 WBC 0.8 /100 WBC (0) H 07/23/18 05:06 Hypochromasia Present (Not Present) A 07/23/18 05:06 ESR 34 mm/hr (0-10) H 07/24/18 03:43 PT 18.0 Seconds (9.4-12.1) H 07/23/18 05:06 ABG pCO2 79 mmHg (35-45) H* 07/25/18 10:38 ABG pO2 71 mmHg (85-104) L 07/25/18 10:38 ABG HCO3 46 mEq/L (21-27) H 07/25/18 10:38 ABG Total CO2 49 mEq/L (20-26) H 07/25/18 10:38 ABG O2 Saturation 92 % (95-98) L 07/25/18 10:38 ABG Base Excess 16 mEq/L (-2 to 3) H 07/25/18 10:38 Chloride 91 mEq/L (98-107) L 07/25/18 08:04 Carbon Dioxide 43 mEq/L (23-29) H* 07/25/18 08:04 BUN 29 mg/dL (8-23) H 07/25/18 08:04 Glucose 146 mg/dL (70-105) H 07/25/18 08:04 POC Glucose 193 mg/dL (70-99) H 07/25/18 12:30 Calcium 8.5 mg/dL (8.6-10.3) L 07/25/18 08:04 Total Bilirubin 1.7 mg/dL (0.3-1.0) H 07/23/18 05:06 Direct Bilirubin 0.8 mg/dL (0.0-0.2) H 07/23/18 05:06 AST 42 Units/L (13-39) H 07/23/18 05:06 ALT 60 Units/L (7-52) H 07/23/18 05:06 C-Reactive Protein 29 mg/L (Less than 10) H 07/24/18 03:43 B-Natriuretic Peptide 704 pg/mL (Less than 100) H 07/24/18 03:43 Albumin 3.2 g/dL (3.5-5.7) L 07/23/18 05:06 Globulin 3.7 g/dL (2.4-3.5) H 07/23/18 05:06 Albumin/Globulin Ratio 0.9 (1.1-2.2) L 07/23/18 05:06 HDL Cholesterol 28 mg/dL (40-59) L 07/23/18 05:06 Urine Protein 30 mg/dL (Neg-Trace) H 07/22/18 22:22 Urine Bilirubin Small (Negative) H 07/22/18 22:22 Urine Urobilinogen 4.0 mg/dL (Normal) H 07/22/18 22:22 Urine Microscopic RBC 3-5 per hpf (0-3) H 07/22/18 22:22 Ur Squamous Epith Cells Many per lpf (None-Few) H 07/22/18 22:22 Hyaline Casts Many per lpf (None-Few) H 07/22/18 22:22 Urine Mucus Many (Few) H 07/22/18 22:22 Urine Total Protein 18 mg/dL (1-14) H 07/23/18 03:33 - Clinical Findings Intake & Output: Intake & Output 07/25/18 07/25/18 07/25/18 07:59 15:59 23:59 Intake Total 680 / 680 Output Total 400 / 400 Balance -400 / -400 680 / 680 Weight 222.1 kg Consult Discharge Plan - Plan Referrals: Ephraim Esquivel MD [Primary Care Provider] - - Attending Attestation I examined this patient and my medical decision-making was reviewed with the Resident Physician. I agree with the documented findings, disposition and treatment plan as described except to the extent set forth below. We independently had [id number] contact with the patient Patient seen and examined at bedside Labs, radiology, chart personally reviewed. Impression/Recs: -Neuro: No focal deficits on exam no evidence of encephalopathy -Pulmonary: Hypoxic hypercapnic respiratory failure patient should be qualified for noninvasive ventilation this is combination of likely underlying COPD and BRENDA and obesity hypoventilation syndrome he will need formal sleep evaluation as an outpatient he does have evidence of pulmonary hypertension and cor pulmonale and I explained that without aggressive treatment of his BRENDA that this would likely be a fatal condition. VQ scan negative for acute or chronic venous thromboembolism -Cardio: Holding diuresis because of kidney injury which is improving now he will likely need to be on a low dose of oral diuretic but because the primary problem is right-sided heart failure aggressive diuresis can be quite deleterious <Rodolfo Santos - Last Filed: 07/25/18 17:34> Date of Encounter: 07/25/18 Time of Encounter: 10:00 Assessment and Plan (1) Chronic respiratory failure with hypercapnia Current Visit: Yes Status: Acute - secondary to his BRENDA , patient haven't used BiPAP in the last 4 yrs. - currently on 4L oxymask satting > 88% - most recent ABG showed pH: 7.37, pCO2 : 79 and HCO3: 46 indicating primary respiratory acidosis with metabolic compensation. -Currently on Symbicort 2 puffs twice a day, albuterol when necessary. Patient is on 3 L of NC satting at 91% -Continue to monitor, follow up with pulmonology as an outpatient for PFTs (2) Pulmonary hypertension Current Visit: Yes Status: Acute - likely due to morbid obesity, BRENDA and diastolic dysfunction. Patient was on BiPAP 5 yrs ago but has not used to since then. Owing to his morbid obesity and sedentary lifestyle, one cannot rule out the likelihood of thromboembolism contributing to pulmonary hypertension. - patient denies dyspnea when he was admitted to the hospital. Denies any episode dizziness or chest pressure. endorses being SOB when he sleeps on his back but not when he is L sided lateral recumbent - Patient currently on 3L oxygen . continue oxygen to keep SPO2 > 88%. - V/Q scan was negative for pulmonary embolus. Connective tissue panel pending. - Follow up with pulmonology as an outpatient for PFTs. With his pCO2: 79 on ABG he should be able to qualify home BiPAP . (3) Diastolic CHF Current Visit: Yes Status: Acute - likely due to his Hx of HTN. - most recent Echocardiogram showed an LVEF: 65% with RVSP : 64mm and moderately dialted R atrium - Conservative use of Lasix in context of right sided CHF -strict Is/Os, f/u with Cardiology as an outpatient Qualifiers: Qualified Code(s): I50.30 - Unspecified diastolic (congestive) heart failure (4) BRENDA (obstructive sleep apnea) Current Visit: Yes Status: Acute -History of obstructive sleep apnea. He was on BiPAPabout 5 years ago but has not used it ever since then. -ABG showed respiratory acidosis with metabolic compensation with pCO2: 79, therefore he might qualify for noninvasive ventilation while inpatient -Patient will benefit from a sleep study as an outpatient . 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 Patient needs to follow- up with [employer] director get workup done to rule in/out this possibility. - Recommended guaifenesin if the cough worsens. (7) Former smoker Current Visit: Yes Status: Acute -Patient quit smoking in the year 1992 and smoked about 20 years. This puts him at high risk for developing COPD. (8) Suspected chronic obstructive pulmonary disease based on initial evaluation Current Visit: Yes Status: Acute Although patient does not have an established diagnosis of COPD, he does have expiratory wheezing on physical exam with suggest that he might have an underlying COPD. He does not endorse any productive sputum production but does have a chronic cough. -Recommended Symbicort 2 puffs twice a day. Hourly albuterol PRN -Patient will benefit from a pulmonary function test as an outpatient Subjective Principal diagnosis: CHF, cellulitis Interval history: No acute events overnight. Patient is currently on Symbicort 2 puffs BID, and 3 L of oxygen mask satting at 93%. He endorses he has slept better last night, admits to decrease shortness of breath or congestion. His recent BMP showed some hypercarbia with CO2 43. ABG showed respiratory acidosis with metabolic compensation ( pH 7.37, CO2: 78.9, HCO3: 46) Objective PUL Vital signs: Last Vital Signs Temp 97.5 F L 07/25/18 07:13 Pulse 84 07/25/18 07:13 Resp 16 07/25/18 07:58 BP 126/72 07/25/18 07:13 Pulse Ox 93 07/25/18 07:58 General appearance: no acute distress Auscultation: bilateral: diminished breath sounds, wheezes (mild) Cardiovascular: regular rate and rhythm Gastrointestinal: soft, non-tender, non-distended Extremities: no ischemia or petechiae (cellulitis infection om Left lower extrmity ) Results - Laboratory Findings CBC and BMP: 07/23/18 05:06 07/25/18 08:04 PT/INR, D-dimer PT 18.0 Seconds (9.4-12.1) H 07/23/18 05:06 Abnormal lab findings: Abnormal lab results MCH 24.6 pg (28.0-33.3) L 07/23/18 05:06 MCHC 29.2 g/dL (31.6-35.5) L 07/23/18 05:06 RDW 18.6 % (11.5-14.5) H 07/23/18 05:06 Nucleated RBCs/100 WBC 0.8 /100 WBC (0) H 07/23/18 05:06 Hypochromasia Present (Not Present) A 07/23/18 05:06 ESR 34 mm/hr (0-10) H 07/24/18 03:43 PT 18.0 Seconds (9.4-12.1) H 07/23/18 05:06 Chloride 94 mEq/L (98-107) L 07/24/18 03:43 Carbon Dioxide 39 mEq/L (23-29) H 07/24/18 03:43 BUN 40 mg/dL (8-23) H 07/24/18 03:43 Creatinine 1.39 mg/dL (0.70-1.30) H 07/24/18 03:43 Est GFR (Non-Af Amer) 52 (> 60) L 07/24/18 03:43 BUN/Creatinine Ratio 29 (6-26) H 07/24/18 03:43 Glucose 136 mg/dL (70-105) H 07/24/18 03:43 POC Glucose 144 mg/dL (70-99) H 07/25/18 07:10 Calcium 8.5 mg/dL (8.6-10.3) L 07/24/18 03:43 Total Bilirubin 1.7 mg/dL (0.3-1.0) H 07/23/18 05:06 Direct Bilirubin 0.8 mg/dL (0.0-0.2) H 07/23/18 05:06 AST 42 Units/L (13-39) H 07/23/18 05:06 ALT 60 Units/L (7-52) H 07/23/18 05:06 C-Reactive Protein 29 mg/L (Less than 10) H 07/24/18 03:43 B-Natriuretic Peptide 704 pg/mL (Less than 100) H 07/24/18 03:43 Albumin 3.2 g/dL (3.5-5.7) L 07/23/18 05:06 Globulin 3.7 g/dL (2.4-3.5) H 07/23/18 05:06 Albumin/Globulin Ratio 0.9 (1.1-2.2) L 07/23/18 05:06 HDL Cholesterol 28 mg/dL (40-59) L 07/23/18 05:06 Urine Protein 30 mg/dL (Neg-Trace) H 07/22/18 22:22 Urine Bilirubin Small (Negative) H 07/22/18 22:22 Urine Urobilinogen 4.0 mg/dL (Normal) H 07/22/18 22:22 Urine Microscopic RBC 3-5 per hpf (0-3) H 07/22/18 22:22 Ur Squamous Epith Cells Many per lpf (None-Few) H 07/22/18 22:22 Hyaline Casts Many per lpf (None-Few) H 07/22/18 22:22 Urine Mucus Many (Few) H 07/22/18 22:22 Urine Total Protein 18 mg/dL (1-14) H 07/23/18 03:33 - Clinical Findings Intake & Output: Intake & Output 07/24/18 07/25/18 07/25/18 23:59 07:59 15:59 Intake Total 440 / 440 Output Total 1100 / 1100 400 / 400 Balance -660 / -660 -400 / -400 Weight 222.1 kg
[2018-07-25 08:58] LABS: BUN/Creatinine Ratio 25 (6-26); Blood Urea Nitrogen 29 mg/dL (8-23); Calcium 8.5 mg/dL (8.6-10.3); Carbon Dioxide 43 mEq/L (23-29); Chloride 91 mEq/L (98-107); Glucose 146 mg/dL (70-105); Osmolality,Calculated 296 (280-300); Potassium 3.9 mEq/L (3.5-5.1); Sodium 139 mEq/L (136-145); eGFR For Non-African Americans > 60 (> 60)
[2018-07-25 10:44] LABS: ABG Base Excess 16 mEq/L (-2 to 3); ABG HCO3 46 mEq/L (21-27); ABG Oxygen Saturation 92 % (95-98); ABG PCO2 79 mmHg (35-45); ABG PH 7.37 pH Units (7.32-7.45); ABG PO2 71 mmHg (85-104); ABG TCO2 49 mEq/L (20-26)
--- NOTE | 2018-07-25 11:04 | Electrocardiograph Report ---
[place] [id number] Test Date: 2018-07-22 Pat Name: Mike Flores Department: EXAM11 Room: 3A25 Gender: M Application Specialist: : [id number] Requested By: Miguelito Caballero Order Number: [id number] Reading MD: Jyoti Brito Measurements Intervals Holcomb Rate: 77 P: 67 MT: 207 QRS: 151 QRSD: 105 T: 30 QT: 377 QTc: 427 Interpretive Statements Sinus rhythm Right axis deviation Low voltage, precordial leads Probable right ventricular hypertrophy Electronically Signed On 07-25-2018 11:03:07 EDT by Jyoti Brito
[2018-07-25] MEDS: MICONAZOLE NITRATE 57 GM TUBE TP SCH (11:53)
[2018-07-25] MEDS: Clotrimazole/Betameth Dip CRM 45 APPL/45 GM TUBE TP SCH (11:54)
[2018-07-25] MEDS: Furosemide 40 MG/4 ML VIAL IVP SCH (12:26)
[2018-07-26] MEDS: Clotrimazole/Betameth Dip CRM 45 APPL/45 GM TUBE TP SCH ×3 (04:56→22:07)
[2018-07-26] MEDS: Insulin LISPRO 300 UNITS/3 ML VIAL SQ SCH ×5 (04:57→22:07)
[2018-07-26] MEDS: *HR* Heparin 5,000 UNIT/ML VIAL SQ SCH ×3 (06:24→22:07)
[2018-07-26] MEDS: Budesonide/Formoterol 80/4.5 MDI IH SCH ×2 (08:22→20:59)
--- NOTE | 2018-07-26 09:09 | Pulmonology Progress Note ---
<JadynStevie W - Last Filed: 07/26/18 13:08> Date of Encounter: 07/26/18 Objective PUL Vital signs: Last Vital Signs Temp 98.3 F 07/26/18 11:42 Pulse 92 07/26/18 11:42 Resp 16 07/26/18 11:42 BP 111/63 07/26/18 11:42 Pulse Ox 91 07/26/18 11:42 Results - Laboratory Findings CBC and BMP: 07/23/18 05:06 07/26/18 09:24 ABG ABG pH 7.37 pH Units (7.32-7.45) 07/25/18 10:38 ABG pCO2 79 mmHg (35-45) H* 07/25/18 10:38 ABG pO2 71 mmHg (85-104) L 07/25/18 10:38 ABG O2 Saturation 92 % (95-98) L 07/25/18 10:38 PT/INR, D-dimer PT 18.0 Seconds (9.4-12.1) H 07/23/18 05:06 Abnormal lab findings: Abnormal lab results MCH 24.6 pg (28.0-33.3) L 07/23/18 05:06 MCHC 29.2 g/dL (31.6-35.5) L 07/23/18 05:06 RDW 18.6 % (11.5-14.5) H 07/23/18 05:06 Nucleated RBCs/100 WBC 0.8 /100 WBC (0) H 07/23/18 05:06 Hypochromasia Present (Not Present) A 07/23/18 05:06 ESR 34 mm/hr (0-10) H 07/24/18 03:43 PT 18.0 Seconds (9.4-12.1) H 07/23/18 05:06 ABG pCO2 79 mmHg (35-45) H* 07/25/18 10:38 ABG pO2 71 mmHg (85-104) L 07/25/18 10:38 ABG HCO3 46 mEq/L (21-27) H 07/25/18 10:38 ABG Total CO2 49 mEq/L (20-26) H 07/25/18 10:38 ABG O2 Saturation 92 % (95-98) L 07/25/18 10:38 ABG Base Excess 16 mEq/L (-2 to 3) H 07/25/18 10:38 Chloride 93 mEq/L (98-107) L 07/26/18 09:24 Carbon Dioxide 45 mEq/L (23-29) H* 07/26/18 09:24 Glucose 128 mg/dL (70-105) H 07/26/18 09:24 POC Glucose 133 mg/dL (70-99) H 07/25/18 21:01 Calculated Osmolality 301 (280-300) H 07/26/18 09:24 Total Bilirubin 1.7 mg/dL (0.3-1.0) H 07/23/18 05:06 Direct Bilirubin 0.8 mg/dL (0.0-0.2) H 07/23/18 05:06 AST 42 Units/L (13-39) H 07/23/18 05:06 ALT 60 Units/L (7-52) H 07/23/18 05:06 C-Reactive Protein 29 mg/L (Less than 10) H 07/24/18 03:43 B-Natriuretic Peptide 704 pg/mL (Less than 100) H 07/24/18 03:43 Albumin 3.2 g/dL (3.5-5.7) L 07/23/18 05:06 Globulin 3.7 g/dL (2.4-3.5) H 07/23/18 05:06 Albumin/Globulin Ratio 0.9 (1.1-2.2) L 07/23/18 05:06 HDL Cholesterol 28 mg/dL (40-59) L 07/23/18 05:06 Urine Protein 30 mg/dL (Neg-Trace) H 07/22/18 22:22 Urine Bilirubin Small (Negative) H 07/22/18 22:22 Urine Urobilinogen 4.0 mg/dL (Normal) H 07/22/18 22:22 Urine Microscopic RBC 3-5 per hpf (0-3) H 07/22/18 22:22 Ur Squamous Epith Cells Many per lpf (None-Few) H 07/22/18 22:22 Hyaline Casts Many per lpf (None-Few) H 07/22/18 22:22 Urine Mucus Many (Few) H 07/22/18 22:22 Urine Total Protein 18 mg/dL (1-14) H 07/23/18 03:33 - Clinical Findings Intake & Output: Intake & Output 07/25/18 07/26/18 07/26/18 23:59 07:59 15:59 Intake Total 360 / 360 120 / 120 120 / 120 Output Total 650 / 650 300 / 300 250 / 250 Balance -290 / -290 -180 / -180 -130 / -130 Weight 214.5 kg Consult Discharge Plan - Plan Referrals: Ephraim Esquivel MD [Primary Care Provider] - - Attending Attestation I examined this patient and my medical decision-making was reviewed with the Resident Physician. I agree with the documented findings, disposition and treatment plan as described except to the extent set forth below. We independently had [id number] contact with the patient Patient seen and examined at bedside Labs, radiology, chart personally reviewed. Impression: Chronic hypoxic hypercapnic respiratory failure Pulmonary hypertension with evidence of cor pulmonale COPD Morbid obesity Recs: Continue supplemental oxygen to keep saturation greater than 88% at all times Continue noninvasive ventilation and with sleep titrate BiPAP pressures goal BiPAP pressure at discharge should be approximately 18/6 he will need formal polysomnograph on BiPAP as outpatient. Continue Symbicort outpatient PFTs Weight loss encouraged Pulmonary will sign off thank you for this consultation please call with questions <Rodolfo Santos - Last Filed: 07/26/18 17:20> Date of Encounter: 07/26/18 Time of Encounter: 09:00 Assessment and Plan (1) Chronic respiratory failure with hypercapnia Current Visit: Yes Status: Acute - secondary to his BRENDA , patient haven't used BiPAP in the last 4 yrs. - currently on 3L oxymask satting > 88% - most recent ABG showed pH: 7.37, pCO2 : 79 and HCO3: 46 indicating primary respiratory acidosis with metabolic compensation. -Currently on Symbicort 2 puffs twice a day, albuterol when necessary. Patient is on 3 L of NC satting at 91% -Continue to monitor, follow up with pulmonology as an outpatient for PFTs (2) Pulmonary hypertension Current Visit: Yes Status: Acute - likely due to morbid obesity, BRENDA and diastolic dysfunction. Patient was on BiPAP 5 yrs ago but has not used to since then. Owing to his morbid obesity and sedentary lifestyle, one cannot rule out the likelihood of thromboembolism contributing to pulmonary hypertension. - patient denies dyspnea when he was admitted to the hospital. Denies any episode dizziness or chest pressure. endorses being SOB when he sleeps on his back but not when he is L sided lateral recumbent - Patient currently on 3L oxygen . continue oxygen to keep SPO2 > 88%. - V/Q scan was negative for pulmonary embolus. Connective tissue panel pending. - Follow up with pulmonology as an outpatient for PFTs. (3) Diastolic CHF Current Visit: Yes Status: Acute - likely due to his Hx of HTN. - most recent Echocardiogram showed an LVEF: 65% with RVSP : 64mm and moderately dialted R atrium - Conservative use of Lasix in context of right sided CHF -strict Is/Os, f/u with Cardiology as an outpatient Qualifiers: Qualified Code(s): I50.30 - Unspecified diastolic (congestive) heart failure (4) BRENDA (obstructive sleep apnea) Current Visit: Yes Status: Acute -History of obstructive sleep apnea. He was on BiPAPabout 5 years ago but has not used it ever since then. -ABG showed respiratory acidosis with metabolic compensation with pCO2: 79, therefore he might qualify for noninvasive ventilation while inpatient -Patient will benefit from a sleep study as an outpatient . 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 Patient needs to follow- up with pharmacists get workup done to rule in/out this possibility. - Recommended guaifenesin if the cough worsens. (7) Former smoker Current Visit: Yes Status: Acute -Patient quit smoking in the year 1992 and smoked about 20 years. This puts him at high risk for developing COPD. (8) Suspected chronic obstructive pulmonary disease based on initial evaluation Current Visit: Yes Status: Acute Although patient does not have an established diagnosis of COPD, he does have expiratory wheezing on physical exam with suggest that he might have an underlying COPD. He does not endorse any productive sputum production but does have a chronic cough. -Recommended Symbicort 2 puffs twice a day. Hourly albuterol PRN -Patient will benefit from a pulmonary function test as an outpatient Subjective Principal diagnosis: CHF, cellulitis Interval history: No acute events overnight. Patient endorses he feels better , was on BiPAP at night but currently on Patient is currently on NC . He continues to be on Symbicort 2 puffs BID. He endorses he has slept better last night, admits to decrease shortness of breath or congestion. Objective PUL Vital signs: Last Vital Signs Temp 98.3 F 07/26/18 07:22 Pulse 70 07/26/18 07:22 Resp 16 07/26/18 08:23 BP 128/62 07/26/18 07:22 Pulse Ox 98 07/26/18 08:23 General appearance: no acute distress Auscultation: bilateral: wheezes (mild) Cardiovascular: regular rate and rhythm Gastrointestinal: soft, non-tender, non-distended Extremities: edema (cellulitis) Results - Laboratory Findings CBC and BMP: 07/23/18 05:06 07/26/18 09:24 ABG ABG pH 7.37 pH Units (7.32-7.45) 07/25/18 10:38 ABG pCO2 79 mmHg (35-45) H* 07/25/18 10:38 ABG pO2 71 mmHg (85-104) L 07/25/18 10:38 ABG O2 Saturation 92 % (95-98) L 07/25/18 10:38 PT/INR, D-dimer PT 18.0 Seconds (9.4-12.1) H 07/23/18 05:06 Abnormal lab findings: Abnormal lab results MCH 24.6 pg (28.0-33.3) L 07/23/18 05:06 MCHC 29.2 g/dL (31.6-35.5) L 07/23/18 05:06 RDW 18.6 % (11.5-14.5) H 07/23/18 05:06 Nucleated RBCs/100 WBC 0.8 /100 WBC (0) H 07/23/18 05:06 Hypochromasia Present (Not Present) A 07/23/18 05:06 ESR 34 mm/hr (0-10) H 07/24/18 03:43 PT 18.0 Seconds (9.4-12.1) H 07/23/18 05:06 ABG pCO2 79 mmHg (35-45) H* 07/25/18 10:38 ABG pO2 71 mmHg (85-104) L 07/25/18 10:38 ABG HCO3 46 mEq/L (21-27) H 07/25/18 10:38 ABG Total CO2 49 mEq/L (20-26) H 07/25/18 10:38 ABG O2 Saturation 92 % (95-98) L 07/25/18 10:38 ABG Base Excess 16 mEq/L (-2 to 3) H 07/25/18 10:38 Chloride 91 mEq/L (98-107) L 07/25/18 08:04 Carbon Dioxide 43 mEq/L (23-29) H* 07/25/18 08:04 BUN 29 mg/dL (8-23) H 07/25/18 08:04 Glucose 146 mg/dL (70-105) H 07/25/18 08:04 POC Glucose 133 mg/dL (70-99) H 07/25/18 21:01 Calcium 8.5 mg/dL (8.6-10.3) L 07/25/18 08:04 Total Bilirubin 1.7 mg/dL (0.3-1.0) H 07/23/18 05:06 Direct Bilirubin 0.8 mg/dL (0.0-0.2) H 07/23/18 05:06 AST 42 Units/L (13-39) H 07/23/18 05:06 ALT 60 Units/L (7-52) H 07/23/18 05:06 C-Reactive Protein 29 mg/L (Less than 10) H 07/24/18 03:43 B-Natriuretic Peptide 704 pg/mL (Less than 100) H 07/24/18 03:43 Albumin 3.2 g/dL (3.5-5.7) L 07/23/18 05:06 Globulin 3.7 g/dL (2.4-3.5) H 07/23/18 05:06 Albumin/Globulin Ratio 0.9 (1.1-2.2) L 07/23/18 05:06 HDL Cholesterol 28 mg/dL (40-59) L 07/23/18 05:06 Urine Protein 30 mg/dL (Neg-Trace) H 07/22/18 22:22 Urine Bilirubin Small (Negative) H 07/22/18 22:22 Urine Urobilinogen 4.0 mg/dL (Normal) H 07/22/18 22:22 Urine Microscopic RBC 3-5 per hpf (0-3) H 07/22/18 22:22 Ur Squamous Epith Cells Many per lpf (None-Few) H 07/22/18 22:22 Hyaline Casts Many per lpf (None-Few) H 07/22/18 22:22 Urine Mucus Many (Few) H 07/22/18 22:22 Urine Total Protein 18 mg/dL (1-14) H 07/23/18 03:33 - Clinical Findings Intake & Output: Intake & Output 07/25/18 07/26/18 07/26/18 23:59 07:59 15:59 Intake Total 360 / 360 120 / 120 Output Total 650 / 650 300 / 300 Balance -290 / -290 -180 / -180 Weight 214.5 kg
[2018-07-26] MEDS: Metoprolol XL (24 HR) Succ 50 MG TAB.ER.24H PO SCH (09:42)
[2018-07-26] MEDS: Aspirin Enteric Coated 81 MG Tablet PO SCH ×2 (09:42→22:06)
[2018-07-26] MEDS: Lisinopril 20 MG TABLET PO SCH (09:42)
[2018-07-26 10:16] LABS: BUN/Creatinine Ratio 23 (6-26); Blood Urea Nitrogen 23 mg/dL (8-23); Calcium 8.7 mg/dL (8.6-10.3); Carbon Dioxide 45 mEq/L (23-29); Chloride 93 mEq/L (98-107); Glucose 128 mg/dL (70-105); Osmolality,Calculated 301 (280-300); Sodium 143 mEq/L (136-145); eGFR For Non-African Americans > 60 (> 60)
[2018-07-26] MEDS ORDERED: Albuterol 2.5 MG/3 ML NEBULIZER IH PRN (10:26)
--- NOTE | 2018-07-26 17:25 | Internal Med Progress Note ---
Hospitalist Progress Note - Encounter Date of Encounter: 07/26/18 Time of Encounter: 13:00 - Subjective Interval History: Patient is complaining of orthopnea and paroxysmal nocturnal dyspnea, lower extremity edema which has been getting worse. Patient denies any chest pain. Patient continue on oxy mask. Patient has history of urinary incontinence, he has Solorio catheter currently . - Exam Vitals: Temp Pulse Resp BP Pulse Ox 98.3 F 92 16 111/63 91 07/26/18 11:42 07/26/18 11:42 07/26/18 11:42 07/26/18 11:42 07/26/18 13:47 Exam: Gen: Vitals noted. No acute distress. Obese man HEENT: Normocephalic, atraumatic Neck: Supple. No adenopathy. No obvious JVD Cardiac: Distant heart sounds, RRR, no murmur, +S1/S2. Pulmonary: Decreased breathing sound bilateral lung bases that basilar rhonchi Abdomen: soft, nontender, no guarding. Skin over abdominal fold is hardened and keratotic Extremities: 3+ lower extremity edema bilaterally Neuro: moves all extremities, no focal deficits. A&Ox3 Psych: Appropriate mood and behavior - Assessment and Plan (1) Urinary incontinence Current Visit: Yes Status: Acute (2) Obesities, morbid Current Visit: Yes Status: Chronic (3) Pleural effusion Current Visit: Yes Status: Acute (4) Diabetes Current Visit: Yes Status: Acute (5) TEAGAN (acute kidney injury) Current Visit: Yes Status: Acute (6) Intertrigo Current Visit: Yes Status: Acute (7) DVT prophylaxis Current Visit: Yes Status: Acute (8) CHF (congestive heart failure), NYHA class III Current Visit: Yes Status: Acute (9) Acute on chronic respiratory failure with hypoxia and hypercapnia Current Visit: Yes Status: Acute (10) Pulmonary hypertension Current Visit: Yes Status: Acute - Summary of Assessment and Plan Summary of Assessment and Plan: Signs of fluid overload, progressive lower extremity edema, will check chest x- ray, check BNP, Lasix 40 mg twice a day. Cardiology recommendation, close monitoring of intake and output, close monitoring of patient weight, counseling patient about PROSPER hose and Chiki wrap lower extremities, discussed with RN about Chiki wrap CAROL.lower Extremities, possible voiding trial tomorrow. Counseling patient about venous stasis and risk of recurrent wound and cellulites . Patient need BiPAP at home, patient need hospital bed at home . - Time Spent with Patient Total time spent is greater than 50% in coordination of care (as documented) at patient's floor/unit and/or counseling patient: Greater than 35 minutes Internal Medicine: Result - Labs CBC & Chem 7: 07/23/18 05:06 07/26/18 09:24 Labs: BMP 07/26/18 09:24 Sodium 143 Potassium 4.0 Chloride 93 L Carbon Dioxide 45 H* BUN 23 Creatinine 0.98 Glucose 128 H Calcium 8.7 - ABG Interpretation ABG results: ABG ABG pH 7.37 pH Units (7.32-7.45) 07/25/18 10:38 ABG pCO2 79 mmHg (35-45) H* 07/25/18 10:38 ABG pO2 71 mmHg (85-104) L 07/25/18 10:38 ABG O2 Saturation 92 % (95-98) L 07/25/18 10:38 PT/INR, D-dimer PT 18.0 Seconds (9.4-12.1) H 07/23/18 05:06 Consult Discharge Plan - Plan Referrals: Ephraim Esquivel MD [Primary Care Provider] - (1) Urinary incontinence Qualifiers: Urinary Incontinence type: unspecified incontinence Qualified Code(s): R32 - Unspecified urinary incontinence (4) Diabetes Qualifiers: Diabetes mellitus type: type 2 Diabetes mellitus group home insulin use: with group home use Diabetes mellitus complication status: with skin complications Diabetes mellitus complication detail: with dermatitis Qualified Code(s): E11.620 - Type 2 diabetes mellitus with diabetic dermatitis; Z79.4 - snf ( current) use of insulin (8) CHF (congestive heart failure), NYHA class III Qualifiers: Congestive heart failure type: diastolic Congestive heart failure chronicity : acute Qualified Code(s): I50.31 - Acute diastolic (congestive) heart failure
[2018-07-26] MEDS ORDERED: Furosemide 20 MG/2 ML VIAL IVP SCH (17:43)
[2018-07-26] MEDS: MICONAZOLE NITRATE 57 GM TUBE TP SCH (18:35)
[2018-07-26] MEDS: Ipratropium/Albuterol Neb 3 ML IH SCH ×2 (20:59→23:27)
[2018-07-27 01:29] LABS: Immature Granulocytes % 0.4 % (0-4); Mean Platelet Volume 9.9 fL (9.4-12.4)
[2018-07-27 01:31] LABS: Basophils % 0.5 %; Eosinophils # 0.3 K/mcL (0.0-0.6); Eosinophils % 3.4 %; Hematocrit 46.9 % (37.5-50.1); Hemoglobin 12.6 g/dL (12.9-16.9); Lymphocytes # 0.7 K/mcL (0.6-4.6); Lymphocytes % 9.2 %; Mean Corpuscular HGB Conc 26.9 g/dL (31.6-35.5); Mean Corpuscular Hemoglobin 23.8 pg (28.0-33.3); Mean Corpuscular Volume 88.7 fL (83.0-100.0); Monocytes # 0.9 K/mcL (0.0-1.3); Monocytes % 12.2 %; Neutrophils # 5.4 K/mcL (1.6-8.9); Platelet Count 131 K/mcL (140-400); Red Blood Count 5.29 M/mcL (4.19-5.50); Red Cell Distribution Width 17.8 % (11.5-14.5); Segmented Neutrophils % 74.3 %
[2018-07-27 01:53] LABS: BUN/Creatinine Ratio 22 (6-26); Blood Urea Nitrogen 23 mg/dL (8-23); Calcium 8.5 mg/dL (8.6-10.3); Carbon Dioxide 43 mEq/L (23-29); Chloride 95 mEq/L (98-107); Glucose 130 mg/dL (70-105); Magnesium 1.6 mg/dL (1.6-2.6); Osmolality,Calculated 299 (280-300); Phosphorous 3.1 mg/dL (2.7-4.5); Potassium 3.8 mEq/L (3.5-5.1); Sodium 142 mEq/L (136-145); eGFR For Non-African Americans > 60 (> 60)
[2018-07-27 02:23] LABS: Anisocytosis 1+ (Not Present); Hypochromasia Present (Not Present); Platelet Estimate Slight Decrease (Normal)
[2018-07-27 02:24] LABS: Toxic Granulation Present (Not Present)
[2018-07-27] MEDS: Ipratropium/Albuterol Neb 3 ML IH SCH ×5 (04:37→20:52)
[2018-07-27] MEDS ORDERED: Acetaminophen 325 MG TABLET PO ONE (04:52)
[2018-07-27] MEDS: *HR* Heparin 5,000 UNIT/ML VIAL SQ SCH ×3 (05:24→21:51)
[2018-07-27] MEDS: Insulin LISPRO 300 UNITS/3 ML VIAL SQ SCH ×4 (07:43→21:51)
[2018-07-27] MEDS: Furosemide 20 MG/2 ML VIAL IVP SCH ×2 (07:51→16:55)
[2018-07-27] MEDS: Aspirin Enteric Coated 81 MG Tablet PO SCH ×2 (07:51→21:50)
[2018-07-27] MEDS: Lisinopril 20 MG TABLET PO SCH (07:51)
[2018-07-27] MEDS: Metoprolol XL (24 HR) Succ 50 MG TAB.ER.24H PO SCH (07:52)
[2018-07-27] MEDS: Budesonide/Formoterol 80/4.5 MDI IH SCH ×2 (08:15→20:52)
[2018-07-27 11:27] LABS: ANA IgG by ELISA NONE DETECTED (None Detected)
[2018-07-27] MEDS: Acetaminophen 325 MG TABLET PO PRN (16:53)
--- NOTE | 2018-07-27 19:06 | Internal Med Progress Note ---
Hospitalist Progress Note - Encounter Date of Encounter: 07/27/18 Time of Encounter: 16:00 - Subjective Interval History: Patient stated his breathing is better than yesterday, no bowel movement for last 4 days. Patient is concerning about suprapubic discomfort and is wondering about recheck urine. No chest pain - Exam Vitals: Temp Pulse Resp BP Pulse Ox 98.0 F 93 16 103/66 90 07/27/18 14:38 07/27/18 14:38 07/27/18 15:48 07/27/18 14:38 07/27/18 15:48 Exam: Gen: Vitals noted. No acute distress. Obese man HEENT: Normocephalic, atraumatic Neck: Supple. No adenopathy. No obvious JVD Cardiac: Distant heart sounds, RRR, no murmur, +S1/S2. Pulmonary: Decreased breathing sound bilateral lung bases marketed improvement compared to yesterday Abdomen: soft, nontender, no guarding. Skin over abdominal fold is hardened and keratotic Extremities: 3+ lower extremity edema bilaterally Neuro: moves all extremities, no focal deficits. A&Ox3 Psych: Appropriate mood and behavior - Assessment and Plan (1) Urinary incontinence Current Visit: Yes Status: Acute (2) Obesities, morbid Current Visit: Yes Status: Chronic (3) Pleural effusion Current Visit: Yes Status: Acute (4) Diabetes Current Visit: Yes Status: Acute (5) TEAGAN (acute kidney injury) Current Visit: Yes Status: Acute (6) Intertrigo Current Visit: Yes Status: Acute (7) DVT prophylaxis Current Visit: Yes Status: Acute (8) CHF (congestive heart failure), NYHA class III Current Visit: Yes Status: Acute (9) Acute on chronic respiratory failure with hypoxia and hypercapnia Current Visit: Yes Status: Acute (10) Pulmonary hypertension Current Visit: Yes Status: Acute - Summary of Assessment and Plan Summary of Assessment and Plan: Signs of fluid overload, marketed improvement with diuretics, close monitoring for next 24-hour, change Lasix to oral next a.m., monitor renal function, counseling patient about voiding trial patient is agreeable to take for a test that out tomorrow morning. 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, possible discharge next 24-48 hours - Time Spent with Patient Total time spent is greater than 50% in coordination of care (as documented) at patient's floor/unit and/or counseling patient: Greater than 35 minutes Internal Medicine: Result - Labs CBC & Chem 7: 07/27/18 01:10 07/27/18 01:10 Labs: Short CBC 07/27/18 Range/Units 01:10 WBC 7.3 (4.3-11.1) K/mcL Hgb 12.6 L (12.9-16.9) g/dL Hct 46.9 (37.5-50.1) % Plt Count 131 L (140-400) K/mcL Neutrophils # 5.4 (1.6-8.9) K/mcL BMP 07/27/18 01:10 Sodium 142 Potassium 3.8 Chloride 95 L Carbon Dioxide 43 H* BUN 23 Creatinine 1.05 Glucose 130 H Calcium 8.5 L - ABG Interpretation ABG results: ABG ABG pH 7.37 pH Units (7.32-7.45) 07/25/18 10:38 ABG pCO2 79 mmHg (35-45) H* 07/25/18 10:38 ABG pO2 71 mmHg (85-104) L 07/25/18 10:38 ABG O2 Saturation 92 % (95-98) L 07/25/18 10:38 PT/INR, D-dimer PT 18.0 Seconds (9.4-12.1) H 07/23/18 05:06 Consult Discharge Plan - Plan Referrals: Ephraim Esquivel MD [Primary Care Provider] - (1) Urinary incontinence Qualifiers: Urinary Incontinence type: unspecified incontinence Qualified Code(s): R32 - Unspecified urinary incontinence (4) Diabetes Qualifiers: Diabetes mellitus type: type 2 Diabetes mellitus long-term insulin use: with long-term use Diabetes mellitus complication status: with skin complications Diabetes mellitus complication detail: with dermatitis Qualified Code(s): E11.620 - Type 2 diabetes mellitus with diabetic dermatitis; 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
[2018-07-27] MEDS: Clotrimazole/Betameth Dip CRM 45 APPL/45 GM TUBE TP SCH ×2 (19:36→21:50)
[2018-07-27 21:09] LABS: Bilirubin,Urine Negative (Negative); Blood,Urine Large (Negative); Clarity,Urine Cloudy (Clear); Color,Urine Yellow (Yellow); Glucose,Urine (UA) Normal (Normal); Ketones,Urine Negative (Negative); Leukocyte Esterase,Urine Small (Negative); Nitrite,Urine Negative (Negative); PH,Urine 6.5 pH Units (5.0-8.0); Protein,Urine Trace mg/dL (Neg-Trace); Specific Gravity,Urine < 1.005 (1.010-1.025); Urobilinogen,Urine Normal (Normal)
[2018-07-27 21:11] LABS: Bacteria,Urine None Seen per hpf (None-Few); Hyaline Casts,Urine None Seen per lpf (None-Few); RBC,Urine TNTC per hpf (0-3); Squamous Epithelial Cell,Urine Moderate per lpf (None-Few)
[2018-07-27] MEDS: MICONAZOLE NITRATE 57 GM TUBE TP SCH (21:50)
[2018-07-28] MEDS: Ipratropium/Albuterol Neb 3 ML IH SCH ×7 (00:07→23:23)
[2018-07-28] MEDS: *HR* Heparin 5,000 UNIT/ML VIAL SQ SCH ×3 (05:36→21:51)
[2018-07-28] MEDS: Budesonide/Formoterol 80/4.5 MDI IH SCH ×2 (08:02→20:15)
[2018-07-28] MEDS: Insulin LISPRO 300 UNITS/3 ML VIAL SQ SCH ×4 (10:10→21:52)
[2018-07-28] MEDS: MICONAZOLE NITRATE 57 GM TUBE TP SCH (10:15)
[2018-07-28] MEDS: Clotrimazole/Betameth Dip CRM 45 APPL/45 GM TUBE TP SCH ×2 (10:15→21:52)
[2018-07-28] MEDS: Metoprolol XL (24 HR) Succ 50 MG TAB.ER.24H PO SCH (10:19)
[2018-07-28] MEDS: Aspirin Enteric Coated 81 MG Tablet PO SCH ×2 (10:19→21:51)
[2018-07-28] MEDS: Furosemide 20 MG/2 ML VIAL IVP SCH ×2 (10:19→17:21)
--- NOTE | 2018-07-28 17:49 | Internal Med Progress Note ---
Hospitalist Progress Note - Encounter Date of Encounter: 07/28/18 Time of Encounter: 06:00 - Subjective Interval History: Patient stated he had multiple bowel movement today, no blood in stool, Solorio catheter was removed. Bladder scan will be done shortly, patient denies any chest pain, shortness of breath with walking to the bathroom, unable to wean patient from oxygen at all today his oxygen saturations dropped to 70 with weaning oxygen - Exam Vitals: Temp Pulse Resp BP Pulse Ox 98.3 F 99 20 96/58 76 07/28/18 10:15 07/28/18 10:15 07/28/18 16:58 07/28/18 16:58 07/28/18 16:58 Exam: Gen: Vitals noted. No acute distress. Obese man HEENT: Normocephalic, atraumatic Neck: Supple. No adenopathy. No obvious JVD Cardiac: Distant heart sounds, RRR, no murmur, +S1/S2. Pulmonary: Decreased breathing sound bilateral lung bases Abdomen: soft, nontender, no guarding. Skin over abdominal fold is hardened and keratotic Extremities: 3+ lower extremity edema bilaterally Neuro: moves all extremities, no focal deficits. A&Ox3 Psych: Appropriate mood and behavior - Assessment and Plan (1) Urinary incontinence Current Visit: Yes Status: Acute (2) Obesities, morbid Current Visit: Yes Status: Chronic (3) Pleural effusion Current Visit: Yes Status: Acute (4) Diabetes Current Visit: Yes Status: Acute (5) TEAGAN (acute kidney injury) Current Visit: Yes Status: Acute (6) Intertrigo Current Visit: Yes Status: Acute (7) DVT prophylaxis Current Visit: Yes Status: Acute (8) CHF (congestive heart failure), NYHA class III Current Visit: Yes Status: Acute (9) Acute on chronic respiratory failure with hypoxia and hypercapnia Current Visit: Yes Status: Acute (10) Pulmonary hypertension Current Visit: Yes Status: Acute - Summary of Assessment and Plan Summary of Assessment and Plan: I had long discussion with patient and family as well as nurse about voiding trial, bladder scan every 6 hour, straight catheter as needed, may consider adding Flomax, continue Cardura, awaiting home equipment, discussed with home with home health - Time Spent with Patient Total time spent is greater than 50% in coordination of care (as documented) at patient's floor/unit and/or counseling patient: 25 - 35 minutes Internal Medicine: Result - Labs CBC & Chem 7: 07/27/18 01:10 07/27/18 01:10 Labs: Urine 07/27/18 Range/Units 19:00 Urine Color Yellow (Yellow) Urine Clarity Cloudy A (Clear) Urine pH 6.5 (5.0-8.0) pH Units Ur Specific [place] < 1.005 L (1.010-1.025) Urine Protein Trace (Neg-Trace) mg/dL Urine Glucose (UA) Normal (Normal) mg/dL - ABG Interpretation ABG results: ABG ABG pH 7.37 pH Units (7.32-7.45) 07/25/18 10:38 ABG pCO2 79 mmHg (35-45) H* 07/25/18 10:38 ABG pO2 71 mmHg (85-104) L 07/25/18 10:38 ABG O2 Saturation 92 % (95-98) L 07/25/18 10:38 PT/INR, D-dimer PT 18.0 Seconds (9.4-12.1) H 07/23/18 05:06 Consult Discharge Plan - Plan Referrals: Ephraim Esquivel MD [Primary Care Provider] - (1) Urinary incontinence Qualifiers: Urinary Incontinence type: unspecified incontinence Qualified Code(s): R32 - Unspecified urinary incontinence (4) Diabetes Qualifiers: Diabetes mellitus type: type 2 Diabetes mellitus longterm insulin use: with longterm use Diabetes mellitus complication status: with skin complications Diabetes mellitus complication detail: with dermatitis Qualified Code(s): E11.620 - Type 2 diabetes mellitus with diabetic dermatitis; Z79.4 - [facility] ( current) use of insulin (8) CHF (congestive heart failure), NYHA class III Qualifiers: Congestive heart failure type: diastolic Congestive heart failure chronicity : acute Qualified Code(s): I50.31 - Acute diastolic (congestive) heart failure
[2018-07-29] MEDS: Ipratropium/Albuterol Neb 3 ML IH SCH ×5 (04:05→20:19)
[2018-07-29 05:41] LABS: Basophils # 0.1 K/mcL (0.0-0.2); Basophils % 0.8 %; Eosinophils # 0.3 K/mcL (0.0-0.6); Eosinophils % 4.2 %; Hematocrit 46.2 % (37.5-50.1); Hemoglobin 12.9 g/dL (12.9-16.9); Immature Granulocytes % 0.5 % (0-4); Lymphocytes # 0.8 K/mcL (0.6-4.6); Mean Corpuscular HGB Conc 27.9 g/dL (31.6-35.5); Mean Corpuscular Hemoglobin 24.3 pg (28.0-33.3); Mean Corpuscular Volume 87.2 fL (83.0-100.0); Mean Platelet Volume 10.6 fL (9.4-12.4); Monocytes % 13.5 %; Neutrophils # 5.5 K/mcL (1.6-8.9); Platelet Count 133 K/mcL (140-400); Red Cell Distribution Width 19.3 % (11.5-14.5)
[2018-07-29] MEDS: MICONAZOLE NITRATE 57 GM TUBE TP SCH (05:57)
[2018-07-29] MEDS: Clotrimazole/Betameth Dip CRM 45 APPL/45 GM TUBE TP SCH ×2 (05:57→21:00)
[2018-07-29] MEDS: *HR* Heparin 5,000 UNIT/ML VIAL SQ SCH ×3 (05:57→20:59)
[2018-07-29 06:03] LABS: BUN/Creatinine Ratio 23 (6-26); Blood Urea Nitrogen 24 mg/dL (8-23); Calcium 8.8 mg/dL (8.6-10.3); Carbon Dioxide 40 mEq/L (23-29); Chloride 91 mEq/L (98-107); Glucose 146 mg/dL (70-105); Osmolality,Calculated 295 (280-300); Sodium 139 mEq/L (136-145); eGFR For Non-African Americans > 60 (> 60)
[2018-07-29 06:29] LABS: Anisocytosis 1+ (Not Present); Hypochromasia Present (Not Present)
[2018-07-29 06:30] LABS: Platelet Estimate Normal (Normal); Reactive Lymphocytes Present (Not Present)
[2018-07-29 07:37] LABS: HIV-1 Viral Load Interp NOT DETECTED (Not Detected)
[2018-07-29] MEDS: Budesonide/Formoterol 80/4.5 MDI IH SCH ×2 (07:42→20:19)
[2018-07-29] MEDS: Metoprolol XL (24 HR) Succ 50 MG TAB.ER.24H PO SCH (08:31)
[2018-07-29] MEDS: Aspirin Enteric Coated 81 MG Tablet PO SCH ×2 (08:31→20:59)
[2018-07-29] MEDS: Furosemide 20 MG/2 ML VIAL IVP SCH (08:32)
[2018-07-29] MEDS: Insulin LISPRO 300 UNITS/3 ML VIAL SQ SCH ×4 (08:32→21:00)
[2018-07-29] MEDS: Acetaminophen 325 MG TABLET PO PRN (20:58)
--- NOTE | 2018-07-29 20:58 | Internal Med Progress Note ---
Hospitalist Progress Note - Encounter Date of Encounter: 07/29/18 Time of Encounter: 20:56 - Subjective Interval History: Pt is a poor historian. Still reqyuiring 5L NC. Denies CP Denies fever or chills. - Exam Vitals: Temp Pulse Resp BP Pulse Ox 100.6 F H 75 16 124/42 95 07/29/18 20:37 07/29/18 20:37 07/29/18 20:37 07/29/18 20:37 07/29/18 20:37 Exam: Exam: Gen: Vitals noted. No acute distress. Obese man HEENT: Normocephalic, atraumatic Neck: Supple. No adenopathy. No obvious JVD Cardiac: Distant heart sounds, RRR, no murmur, +S1/S2. Pulmonary: diminished and distant breath sounds, no wheezes, rales or rhonchi, equal chest expansion. Technically challenging exam due to size Abdomen: soft, nontender, no guarding. Skin over abdominal fold is hardened and keratotic Integument: Skin under abdominal fold and around groin is erythemic and hyperemic with minimal sloughing. There is dark erythematous skin on the left lower extremity that extends to the foot with keratotic skin at the distal extremity. There is moisture with weeping fluid in the left extremity. Extremities: 3+ lower extremity edema bilaterally, worse in left leg, legs are tender, no cyanosis or clubbing. Positive venous stasis Neuro: moves all extremities, no focal deficits. A&Ox3 Psych: Appropriate mood and behavior. sKin: onychomycosis. - Assessment and Plan (1) Acute on chronic respiratory failure with hypoxia and hypercapnia Current Visit: Yes Status: Acute Assessment and Plan: Likely multifactorial from Pulmonary hypertension with cor pulmonale, untreated obstructive sleep apnea, obesity hypoventilation syndrome, COPD and acute worsening of chronic diastolic CHF Pulmonary saw the pt and recommends continue BIPAP, symbicort,and nebs prn. Was on lasix which has been held due to over diuresis. Pulmonology also recommending out pt PFT. (2) Pulmonary hypertension Current Visit: Yes Status: Acute Assessment and Plan: Pulmonary HTN with evidence of cor pulmonale. Pt is difficult to diurese. Will continue supportive care with O2, BiPAP and symbicort. Prognosis guarded (3) Obesities, morbid Current Visit: Yes Status: Chronic Assessment and Plan: strongly recommending life style modification such as diet and exercise. (4) Pleural effusion Current Visit: Yes Status: Acute Assessment and Plan: Moderate right pleural effusion Suspected secondary to cardiac and pulmonary causes with diastolic CHF and pulmonary hypertension Currently requires supplemental oxygen, will maintain oxygen saturation greater than 92% Lasix as needed Consider pulmonology consulted and signed off. (5) Diabetes Current Visit: Yes Status: Acute Assessment and Plan: Diabetes which appears to be in relatively good control Patient has been on pioglitazone which is not a great medication for him considering suspected heart failure. Will DC prioglitazone and likely send home on Insulin. (6) TEAGAN (acute kidney injury) Current Visit: Yes Status: Acute Assessment and Plan: Improved with diuresis but pt appaers to have small window for correction as his BUN today is up to 24. Will hold Lasix 40 mg IV BID today and recheck in am. (7) Intertrigo Current Visit: Yes Status: Acute Assessment and Plan: On miconazole (8) CHF (congestive heart failure), NYHA class III Current Visit: Yes Status: Acute Assessment and Plan: Patient had worsening dyspnea on exertion, elevated BNP on admission 731 Chest x-ray demonstrated right pleural effusion and pulmonary vascular congestion Echo showed severe pulmonary hypertension with dilated right atrium likely 2/2 to diastolic CHF Was on lasixon admission, but this has been held due to over diuresis but then resumed on Lasix 07/26/18 due to worsening hypoxia and oxygen requirement going from 2L to 5L NC. Unfortunately though BUN up again today at 24 so holding Lasix once again. At this point will consult palliative care for assistance with discharge planing as pt's prognosis is guarded. (9) Urinary incontinence Current Visit: Yes Status: Acute Assessment and Plan: Urinary incontinence, unknown etiology. UA on admission contaminated. Will re check UA. Mccloud was placed but then discontinued. Will place mccloud catheter for now Retroperitoneal ultrasound US/US retroperitoneal comp IMPRESSION: Limited negative renal ultrasound. DVT Prophylaxis: Heparin - Summary of Assessment and Plan Summary of Assessment and Plan: Mr. Flores is a 62 year old male with history of diabetes, hypertension, chronic cellulitis who presents to the ED with complaint of left leg wound and cellulitis which is been getting worse over the past 2-3 weeks. He says that this has been chronic over the past 5-7 years, and required wound care approximately 5 years ago. In the past 2-3 weeks, he says that he has not been able to keep it under control. The wound has been getting worse, and he says that has been weeping water. He has also noticed that it has become redder, and has been swelling. Today, his and daughter mentioned that his toes became black at approximately 8 PM at that time they decided to bring him to the hospital. In addition of this, he does mention that he has had increasing shortness of breath and says that at this point he is only able to walk 5-10 steps before she becomes extremely short of breath and is unable to continue. This has been worsening significantly. It is not associated with any chest pain, and rest does seem to help. Finally, the patient complains of urinary incontinence which has been going on for approximately one week to his knowledge. He says that he hardly notices it , however he has had pain and tenderness in his groin area and he has noticed that there is been witnessed and his groin due to leaking of urine. He has not noted any dysuria or discharge. He also has not noticed any blood in his urine. He does admit to some pain in his lower back which is bilateral. - Time Spent with Patient Total time spent is greater than 50% in coordination of care (as documented) at patient's floor/unit and/or counseling patient: less than 15 minutes Plan of Care Discussed with: patient Internal Medicine: Result - Labs CBC & Chem 7: 07/29/18 04:41 07/29/18 04:41 Labs: Short CBC 07/29/18 Range/Units 04:41 WBC 7.7 (4.3-11.1) K/mcL Hgb 12.9 (12.9-16.9) g/dL Hct 46.2 (37.5-50.1) % Plt Count 133 L (140-400) K/mcL Neutrophils # 5.5 (1.6-8.9) K/mcL BMP 07/29/18 04:41 Sodium 139 Potassium 4.0 Chloride 91 L Carbon Dioxide 40 H* BUN 24 H Creatinine 1.03 Glucose 146 H Calcium 8.8 - ABG Interpretation ABG results: ABG ABG pH 7.37 pH Units (7.32-7.45) 07/25/18 10:38 ABG pCO2 79 mmHg (35-45) H* 07/25/18 10:38 ABG pO2 71 mmHg (85-104) L 07/25/18 10:38 ABG O2 Saturation 92 % (95-98) L 07/25/18 10:38 PT/INR, D-dimer PT 18.0 Seconds (9.4-12.1) H 07/23/18 05:06 Consult Discharge Plan - Plan Referrals: Ephraim Esquivel MD [Primary Care Provider] - (5) Diabetes Qualifiers: Diabetes mellitus type: type 2 Diabetes mellitus senior living insulin use: with manager intermediate use Diabetes mellitus complication status: with skin complications Diabetes mellitus complication detail: with dermatitis Qualified Code(s): E11.620 - Type 2 diabetes mellitus with diabetic dermatitis; Z79.4 - senior living ( current) use of insulin (8) CHF (congestive heart failure), NYHA class III Qualifiers: Congestive heart failure type: diastolic Congestive heart failure chronicity : acute Qualified Code(s): I50.31 - Acute diastolic (congestive) heart failure (9) Urinary incontinence Qualifiers: Urinary Incontinence type: unspecified incontinence Qualified Code(s): R32 - Unspecified urinary incontinence
[2018-07-29] MEDS ORDERED: Ipratropium/Albuterol Neb 3 ML IH PRN (22:04)
[2018-07-29 22:52] LABS: Bilirubin,Urine Small (Negative); Blood,Urine Moderate (Negative); Clarity,Urine Cloudy (Clear); Color,Urine Red (Yellow); Glucose,Urine (UA) Normal (Normal); Ketones,Urine 15 mg/dL (Negative); Leukocyte Esterase,Urine Moderate (Negative); Nitrite,Urine Negative (Negative); Protein,Urine >=300 mg/dL (Neg-Trace); Specific Gravity,Urine 1.015 (1.010-1.025)
[2018-07-30] MEDS: *HR* Heparin 5,000 UNIT/ML VIAL SQ SCH ×3 (06:30→22:24)
[2018-07-30] MEDS: Budesonide/Formoterol 80/4.5 MDI IH SCH ×2 (07:31→20:19)
[2018-07-30] MEDS: Insulin LISPRO 300 UNITS/3 ML VIAL SQ SCH ×4 (11:16→22:28)
[2018-07-30] MEDS: Metoprolol XL (24 HR) Succ 50 MG TAB.ER.24H PO SCH (11:17)
[2018-07-30] MEDS: MICONAZOLE NITRATE 57 GM TUBE TP SCH (11:17)
[2018-07-30] MEDS: Clotrimazole/Betameth Dip CRM 45 APPL/45 GM TUBE TP SCH (11:17)
[2018-07-30] MEDS: Aspirin Enteric Coated 81 MG Tablet PO SCH ×2 (11:17→22:24)
[2018-07-30 12:05] LABS: Hematocrit 46.3 % (37.5-50.1); Hemoglobin 13.2 g/dL (12.9-16.9); Mean Corpuscular HGB Conc 28.5 g/dL (31.6-35.5); Mean Corpuscular Hemoglobin 24.4 pg (28.0-33.3); Mean Corpuscular Volume 85.7 fL (83.0-100.0); Mean Platelet Volume 10.6 fL (9.4-12.4); Platelet Count 124 K/mcL (140-400); Red Cell Distribution Width 19.5 % (11.5-14.5)
[2018-07-30 12:37] LABS: BUN/Creatinine Ratio 24 (6-26); Blood Urea Nitrogen 23 mg/dL (8-23); Carbon Dioxide 43 mEq/L (23-29); Chloride 90 mEq/L (98-107); Glucose 188 mg/dL (70-105); Osmolality,Calculated 295 (280-300); Potassium 3.7 mEq/L (3.5-5.1); Sodium 138 mEq/L (136-145); eGFR For Non-African Americans > 60 (> 60)
[2018-07-30 13:14] LABS: Lymphocytes # 2.4 K/mcL (0.6-4.6); Monocytes # 0.8 K/mcL (0.0-1.3); Neutrophils # 16.9 K/mcL (1.6-8.9); Platelet Estimate Slight Decrease (Normal)
[2018-07-30 13:15] LABS: Anisocytosis 1+ (Not Present); Polychromasia 1+ (Not Present); Stomatocytes 1+ (Not Present)
[2018-07-30 13:47] LABS: Hematocrit 44.9 % (37.5-50.1); Hemoglobin 12.7 g/dL (12.9-16.9); Mean Corpuscular HGB Conc 28.3 g/dL (31.6-35.5); Mean Corpuscular Hemoglobin 24.5 pg (28.0-33.3); Mean Corpuscular Volume 86.7 fL (83.0-100.0); Mean Platelet Volume 11.7 fL (9.4-12.4); Monocytes # 1.3 K/mcL (0.0-1.3); Platelet Count 161 K/mcL (140-400); Red Blood Count 5.18 M/mcL (4.19-5.50); Red Cell Distribution Width 18.7 % (11.5-14.5)
[2018-07-30 14:29] LABS: Lymphocytes # 0.9 K/mcL (0.6-4.6); Neutrophils # 19.2 K/mcL (1.6-8.9); Platelet Estimate Normal (Normal)
[2018-07-30 14:30] LABS: Hypochromasia Present (Not Present)
--- NOTE | 2018-07-30 14:41 | Internal Med Progress Note ---
Hospitalist Progress Note - Encounter Date of Encounter: 07/30/18 Time of Encounter: 14:39 - Subjective Interval History: Pt more alert today and states he is feeling better. Pt sitting up in wheel chair. Daughter hat bedside during encounter. Still requiring 5L via mask. Denies CP Denies fever or chills but WBC bumped from 7.7 to 21.3. Pt does not appear ill or toxic at this time and has been afebrile. BP has also been stable - Exam Vitals: Temp Pulse Resp BP Pulse Ox 98.2 F 99 18 114/77 90 07/30/18 10:37 07/30/18 10:37 07/30/18 10:37 07/30/18 10:37 07/30/18 10:37 Exam: Exam: Gen: Vitals noted. No acute distress. Obese man HEENT: Normocephalic, atraumatic Neck: Supple. No adenopathy. No obvious JVD Cardiac: Distant heart sounds, RRR, no murmur, +S1/S2. Pulmonary: diminished and distant breath sounds, no wheezes, rales or rhonchi, equal chest expansion. Technically challenging exam due to size Abdomen: soft, nontender, no guarding. Skin over abdominal fold is hardened and keratotic Integument: Skin under abdominal fold and around groin is erythemic and hyperemic with minimal sloughing. There is dark erythematous skin on the left lower extremity that extends to the foot with keratotic skin at the distal extremity. There is moisture with weeping fluid in the left extremity. Extremities: 3+ lower extremity edema bilaterally, worse in left leg, legs are tender, no cyanosis or clubbing. Positive venous stasis Neuro: moves all extremities, no focal deficits. A&Ox3 Psych: Appropriate mood and behavior. sKin: onychomycosis. - Assessment and Plan (1) Acute on chronic respiratory failure with hypoxia and hypercapnia Current Visit: Yes Status: Acute Assessment and Plan: Likely multifactorial from Pulmonary hypertension with cor pulmonale, untreated obstructive sleep apnea, obesity hypoventilation syndrome, COPD and acute worsening of chronic diastolic CHF Pulmonary saw the pt and recommends continue BIPAP, symbicort,and nebs prn. Was on lasix which has been held due to over diuresis. Pulmonology also recommending out pt PFT. Consulting palliative care to see. (2) Leukocytosis Current Visit: Yes Status: Acute Assessment and Plan: Pt's WBC 7.7 but went up to 20 and STAT repeat was 21.3. Etiology unclear. He is not on steroids. Pt has been afebrile and in fact states he is feeling better than he was yesterday. Will place on Zosyn. UA looks abnormal so will await repeat urine culture. Had been seen by ID so will re consult them to see if leukocytosis does not improve or persists. Will request thoracenthesis by IR for drainage of R pleural effusion and for fluid analysis. (3) Pulmonary hypertension Current Visit: Yes Status: Acute Assessment and Plan: Pulmonary HTN with evidence of cor pulmonale. Pt is difficult to diurese. Will continue supportive care with O2, BiPAP and symbicort. Will place on Lasix 20 mg PO QD for now. Prognosis guarded (4) Obesities, morbid Current Visit: Yes Status: Chronic Assessment and Plan: strongly recommending life style modification such as diet and exercise. (5) Pleural effusion Current Visit: Yes Status: Acute Assessment and Plan: Moderate right pleural effusion Suspected secondary to cardiac and pulmonary causes with diastolic CHF and pulmonary hypertension Currently requires supplemental oxygen, will maintain oxygen saturation greater than 92% add Lasix 20 mg PO daily. Pulmonology consulted and signed off. (6) Diabetes Current Visit: Yes Status: Acute Assessment and Plan: Diabetes which appears to be in relatively good control Patient has been on pioglitazone which is not a great medication for him considering suspected heart failure. Will DC prioglitazone and likely send home on Insulin. (7) TEAGAN (acute kidney injury) Current Visit: Yes Status: Acute Assessment and Plan: Improved with diuresis but pt appears to have small window for correction as his BUN today is up to 24. Lasix 40 mg IV BID was held 07/30/2018 and recheck BMP showed BUN 23 and Cr 0.96. Will place on Low dose Lasix 20 mg PO daily as pt till requires some diuretic on board. Will continue ot monitor renal function closely. (8) Intertrigo Current Visit: Yes Status: Acute Assessment and Plan: On miconazole (9) CHF (congestive heart failure), NYHA class III Current Visit: Yes Status: Acute Assessment and Plan: Patient had worsening dyspnea on exertion, elevated BNP on admission 731 Chest x-ray demonstrated right pleural effusion and pulmonary vascular congestion Echo showed severe pulmonary hypertension with dilated right atrium likely 2/2 to diastolic CHF Was on lasixon admission, but this has been held due to over diuresis but then resumed on Lasix 07/26/18 due to worsening hypoxia and oxygen requirement going from 2L to 5L NC. Unfortunately BUN up again 07/30/2018 at 24 so Lasix held again. Will place on Low dose Lasi 20 mg PO daily as pt till requires some diuretic on board. Will continue ot monitor renal function closely. At this point will consult palliative care for assistance with discharge planing as pt's prognosis is guarded. (10) Urinary incontinence Current Visit: Yes Status: Acute Assessment and Plan: Urinary incontinence, unknown etiology. UA done in ED on admission contaminated. Re check UA showing moderate leuks. Started on Zosyn due to bump in WBC. Mccloud was placed but then discontinued 07/29/2018 but then replaced mccloud catheter 07/30/18. Pt started on flomax 07/31/2018. Retroperitoneal ultrasound US/US retroperitoneal comp IMPRESSION: Limited negative renal ultrasound. DVT Prophylaxis: Heparin - Summary of Assessment and Plan Summary of Assessment and Plan: Mr. Flores is a 62 year old male with history of diabetes, hypertension, chronic cellulitis who presents to the ED with complaint of left leg wound and cellulitis which is been getting worse over the past 2-3 weeks. He says that this has been chronic over the past 5-7 years, and required wound care approximately 5 years ago. In the past 2-3 weeks, he says that he has not been able to keep it under control. The wound has been getting worse, and he says that has been weeping water. He has also noticed that it has become redder, and has been swelling. Today, his and daughter mentioned that his toes became black at approximately 8 PM at that time they decided to bring him to the hospital. In addition of this, he does mention that he has had increasing shortness of breath and says that at this point he is only able to walk 5-10 steps before she becomes extremely short of breath and is unable to continue. This has been worsening significantly. It is not associated with any chest pain, and rest does seem to help. Finally, the patient complains of urinary incontinence which has been going on for approximately one week to his knowledge. He says that he hardly notices it , however he has had pain and tenderness in his groin area and he has noticed that there is been witnessed and his groin due to leaking of urine. He has not noted any dysuria or discharge. He also has not noticed any blood in his urine. He does admit to some pain in his lower back which is bilateral. - Time Spent with Patient Total time spent is greater than 50% in coordination of care (as documented) at patient's floor/unit and/or counseling patient: less than 15 minutes Plan of Care Discussed with: patient Internal Medicine: Result - Labs CBC & Chem 7: 07/30/18 13:33 07/30/18 11:52 Labs: Short CBC 07/30/18 07/30/18 Range/Units 11:52 13:33 WBC 20.1 H D 21.3 H (4.3-11.1) K/mcL Hgb 13.2 12.7 L (12.9-16.9) g/dL Hct 46.3 44.9 (37.5-50.1) % Plt Count 124 L 161 (140-400) K/mcL Neutrophils # 16.9 H 19.2 H (1.6-8.9) K/mcL BMP 07/30/18 11:52 Sodium 138 Potassium 3.7 Chloride 90 L Carbon Dioxide 43 H* BUN 23 Creatinine 0.96 Glucose 188 H Calcium 9.0 Urine 07/29/18 Range/Units 22:15 Urine Color Red A (Yellow) Urine Clarity Cloudy A (Clear) Urine pH 8.0 (5.0-8.0) pH Units Ur Specific [place] 1.015 (1.010-1.025) Urine Protein >=300 H (Neg-Trace) mg/dL Urine Glucose (UA) Normal (Normal) mg/dL - ABG Interpretation ABG results: ABG ABG pH 7.37 pH Units (7.32-7.45) 07/25/18 10:38 ABG pCO2 79 mmHg (35-45) H* 07/25/18 10:38 ABG pO2 71 mmHg (85-104) L 07/25/18 10:38 ABG O2 Saturation 92 % (95-98) L 07/25/18 10:38 PT/INR, D-dimer PT 18.0 Seconds (9.4-12.1) H 07/23/18 05:06 Consult Discharge Plan - Plan Referrals: Ephraim Esquivel MD [Primary Care Provider] - (6) Diabetes Qualifiers: Diabetes mellitus type: type 2 Diabetes mellitus halfway insulin use: with halfway use Diabetes mellitus complication status: with skin complications Diabetes mellitus complication detail: with dermatitis Qualified Code(s): E11.620 - Type 2 diabetes mellitus with diabetic dermatitis; Z79.4 - care home ( current) use of insulin (9) CHF (congestive heart failure), NYHA class III Qualifiers: Congestive heart failure type: diastolic Congestive heart failure chronicity : acute Qualified Code(s): I50.31 - Acute diastolic (congestive) heart failure (10) Urinary incontinence Qualifiers: Urinary Incontinence type: unspecified incontinence Qualified Code(s): R32 - Unspecified urinary incontinence
[2018-07-30] MEDS ORDERED: Furosemide 20 MG TABLET PO PRN (15:07)
--- NOTE | 2018-07-30 15:22 | Palliative - Consult Note ---
Date of Encounter: 07/30/18 Time of Encounter: 15:00 - Assessment and Plan (1) Advanced care planning/counseling discussion Current Visit: Yes Status: Acute Assessment and plan: 75 min discussion with pt and daughter Delmi regarding goals of care. His currently not at the hospital. Daughter expressed frustration at conflicting information they have received from providers over the last 8 days. States no one has really discussed his condition and status of pulmonary disease. She states she has been unable to be here much r/t work. I went over last few days worth of notes and also discussed pulmonology consults and their recommendations for outpt f/u and PFT testing. They verbalized understanding. He knows at this point, he needs to be compliant with medical therapy, and discussed with him how condition may stabilize or get worse, but not likely to reverse. Discussed possibility of frequent admissions r/t respiratory failure/ CHF, and he is high risk for infections as well. We discussed that he needs to have conversations with his and family about what his goals are and what treatment he would or would not want if he was to decline IE (code status, intubation, tracheostomy and fci ventilation). 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 We did discuss hospice care at length, but at this time, he desires to try and comply with recommendations, including home health, PT, and bipap at home. He is aware that if he continues to decline, or decides he no longer desires to return to hospital, and wants to be kept comfortable at home, he could transition to hospice care. However, not ready to make that transition at this time. (2) Dyspnea Current Visit: Yes Status: Acute Assessment and plan: Continues on 5L oxygen, symbicort, albuterol PRN. He does state breathing has improved over the week. Monitor Qualifiers: Dyspnea type: unspecified Qualified Code(s): R06.00 - Dyspnea, unspecified (3) Acute exacerbation of CHF (congestive heart failure) Current Visit: Yes Status: Acute Qualifiers: Heart failure type: diastolic Qualified Code(s): I50.33 - Acute on chronic diastolic (congestive) heart failure (4) Chronic respiratory failure with hypoxia Current Visit: Yes Status: Acute Assessment and plan: Pulmonology has made recommendations, and desire outpatient follow up. Reiterated importance of being compliant with these appts. (5) Pulmonary hypertension Current Visit: Yes Status: Acute Palliative-CN HPI - Data of Consult Requesting Physician: Jerrod Benitez Primary Care Provider: Ephraim Esquivel MD - Consult Narrative History of present illness: Mr. Flores is a 62 year old male who originally presented to the hospital with c /o chronic left left cellulitis, that was worsening 2-3 weeks prior to admission with increased edema and weeping. He has been in the hospital for 8 days now, and has received treatment for his cellulitis, CHF exacerbation, and respiratory failure. Patient has had cardiology, vascular, infectious disease, podiatry as well as pulmonology consults during this admission and their notes have been reviewed as well. He states he was prescribed bipap "years ago", but found it miserable, and caused him great anxiety, so he quit using this device. Echo with 65% EF and severe pulmonary hypertension. Pulmonology has started on Symbicort, albuterol PRN, bipap, and desire follow up as outpatient for PFT and sleep study testing. Vascular consult recommend wound care consult for leg ulcer, no surgical intervention. He c/o shortness of breath with any exertion, and is having a great deal of pain /spasms from urinary catheter. States lack of sleep has been a burden as well, and just wants to get home. He gets frustrated with much questioning, and states he does not remember information given to him. His daughter is at bedside, verifying that pt lives at home with , and discharge planning has began. They are looking at renting a bed with trapeze for home use. CC: Jerrod Benitez - Time Spent with Patient Time: Total time spent is greater than 50% in coordination of care (as documented) at patient's floor/unit and/or counseling patient: Greater than 35 minutes (75 min spent in couseling and coordination of care) Past Med Surg Social Fam HX - Past Medical History Medical history: diabetes, hypertension Psychiatric history: no psych history - Past Surgical History Additional surgical history: right foot surgery - Social History Smoking Status: Former smoker Alcohol use: none Drug use: none - Family History Mother Family Member Ethnicity: Non- Living Status: Age at : 71 Hx Family Cancer: Yes (lung/brain cancer) Hx Family Endocrine Disorder: Yes (diabetes) Father Family Member Ethnicity: Non- Living Status: Age at : 75 Hx Family Cardiac Disorders: Yes (heart attack) Medications and Allergies Aspirin Enteric Coated [Aspirin EC] 81 mg PO BID 07/22/18 [History] Atorvastatin Calcium [Lipitor] 20 mg PO HS 07/22/18 [History] Cholecalciferol (D-3) [Vitamin D] 5,000 unit PO DAILY 07/22/18 [History] Insulin ASPART [NovoLOG] 20 - 24 unit SQ TIDWM 07/22/18 [History] Insulin Glargine,Hum.rec.anlog [Lantus Solostar] 120 unit SQ HS 07/22/18 [ History] Metoprolol Succinate [Kapspargo Sprinkle] 50 mg PO DAILY 07/22/18 [History] Pioglitazone HCl/Metformin HCl [Actoplus Met Xr 30-1,000 mg Tb] 1 tab PO DAILY 07/22/18 [History] Quinapril/Hydrochlorothiazide [Quinapril-Hctz 20-12.5 mg Tab] 1 tab PO DAILY 11/08 [History] 3 Allergy/AdvReac Type Severity Reaction Status Date / Time No Known Allergies Allergy Verified 07/22/18 21:27 All systems: reviewed and no additional remarkable complaints except as stated ( shortness of breath with any exertion, lower extremity edema, anxiety) Palliative Care-Exam - Constitutional Vitals: Temp Pulse Resp BP Pulse Ox 98.6 F 97 18 110/63 93 07/30/18 14:35 07/30/18 14:35 07/30/18 14:35 07/30/18 14:35 07/30/18 14:35 General appearance: Present: cooperative, morbidly obese, no acute distress - Head Head Exam: Present: normal inspection, normocephalic - Respiratory Respiratory exam: Present: decreased breath sounds Additional comments: Faint expiratory wheezes - Cardiovascular Cardiovascular exam: Present: +S1, +S2 - GI/Abdominal Exam GI/Abdominal exam: Present: normal bowel sounds, soft - Extremities Exam Additional comments: 3+ edema bilateral lower extremities, wrapped with kerlix - Neurological Exam Neurological exam: Present: alert, oriented X3, strengths equal and symetr throughout - Skin Skin exam: Present: dry, warm Additional comments: erythema to lower legs - [facility] Internal Medicine - CN: Reslt - Labs CBC & Chem 7: 07/30/18 13:33 07/30/18 11:52 Labs: Short CBC 07/30/18 07/30/18 Range/Units 11:52 13:33 WBC 20.1 H D 21.3 H (4.3-11.1) K/mcL Hgb 13.2 12.7 L (12.9-16.9) g/dL Hct 46.3 44.9 (37.5-50.1) % Plt Count 124 L 161 (140-400) K/mcL Neutrophils # 16.9 H 19.2 H (1.6-8.9) K/mcL BMP 07/30/18 11:52 Sodium 138 Potassium 3.7 Chloride 90 L Carbon Dioxide 43 H* BUN 23 Creatinine 0.96 Glucose 188 H Calcium 9.0 Urine 07/29/18 Range/Units 22:15 Urine Color Red A (Yellow) Urine Clarity Cloudy A (Clear) Urine pH 8.0 (5.0-8.0) pH Units Ur Specific [place] 1.015 (1.010-1.025) Urine Protein >=300 H (Neg-Trace) mg/dL Urine Glucose (UA) Normal (Normal) mg/dL - ABG Interpretation ABG results: ABG ABG pH 7.37 pH Units (7.32-7.45) 07/25/18 10:38 ABG pCO2 79 mmHg (35-45) H* 07/25/18 10:38 ABG pO2 71 mmHg (85-104) L 07/25/18 10:38 ABG O2 Saturation 92 % (95-98) L 07/25/18 10:38 PT/INR, D-dimer PT 18.0 Seconds (9.4-12.1) H 07/23/18 05:06 Consult Discharge Plan - Plan Referrals: Ephraim Esquivel MD [Primary Care Provider] - Palliative Quality Palliative Quality: Screen for Code Status: Yes, Screen for Goals of Care: Yes, Screen for Pain: Yes, If Pain Regimen Started, Initiate Bowel Regimen: NA, Screen for Nausea/Vomitting: Yes
[2018-07-30] MEDS ORDERED: 0.9 % Sodium Chloride Mini Bag 100 ML ONE (15:50)
[2018-07-30] MEDS: Acetaminophen 325 MG TABLET PO PRN (16:03)
[2018-07-30] MEDS: Piperacillin/Tazobactam 3.375 GM in 0.9 % Sodium Chloride Mini Bag 100 ML IVPB SCH ×2 (16:04→16:05)
[2018-07-31] MEDS: *HR* Heparin 5,000 UNIT/ML VIAL SQ SCH ×3 (06:03→22:17)
[2018-07-31] MEDS: Clotrimazole/Betameth Dip CRM 45 APPL/45 GM TUBE TP SCH ×3 (06:09→22:18)
[2018-07-31] MEDS: Budesonide/Formoterol 80/4.5 MDI IH SCH ×2 (07:31→20:44)
[2018-07-31] MEDS: Insulin LISPRO 300 UNITS/3 ML VIAL SQ SCH ×4 (09:32→22:16)
[2018-07-31] MEDS: MICONAZOLE NITRATE 57 GM TUBE TP SCH (09:34)
[2018-07-31] MEDS: Piperacillin/Tazobactam 3.375 GM in 0.9 % Sodium Chloride Mini Bag 100 ML IVPB SCH ×2 (09:34→18:44)
[2018-07-31 09:48] LABS: Basophils # 0.1 K/mcL (0.0-0.2); Basophils % 0.4 %; Eosinophils # 0.2 K/mcL (0.0-0.6); Hematocrit 42.1 % (37.5-50.1); Hemoglobin 11.9 g/dL (12.9-16.9); Immature Granulocytes % 1.1 % (0-4); Lymphocytes # 0.5 K/mcL (0.6-4.6); Lymphocytes % 2.8 %; Mean Corpuscular HGB Conc 28.3 g/dL (31.6-35.5); Mean Corpuscular Hemoglobin 24.7 pg (28.0-33.3); Mean Corpuscular Volume 87.3 fL (83.0-100.0); Mean Platelet Volume 10.9 fL (9.4-12.4); Monocytes % 6.8 %; Neutrophils # 14.8 K/mcL (1.6-8.9); Platelet Count 138 K/mcL (140-400); Red Blood Count 4.82 M/mcL (4.19-5.50); Red Cell Distribution Width 19.1 % (11.5-14.5); Segmented Neutrophils % 87.9 %
[2018-07-31 09:58] LABS: Monocytes # 1.1 K/mcL (0.0-1.3)
[2018-07-31 10:12] LABS: BUN/Creatinine Ratio 24 (6-26); Blood Urea Nitrogen 22 mg/dL (8-23); Calcium 8.5 mg/dL (8.6-10.3); Carbon Dioxide 44 mEq/L (23-29); Chloride 92 mEq/L (98-107); Glucose 169 mg/dL (70-105); Osmolality,Calculated 295 (280-300); Potassium 3.7 mEq/L (3.5-5.1); Sodium 139 mEq/L (136-145); eGFR For Non-African Americans > 60 (> 60)
[2018-07-31 10:47] LABS: Platelet Estimate Normal (Normal)
--- NOTE | 2018-07-31 11:32 | Infectious Disease Progress No ---
Date of Encounter: 07/31/18 Time of Encounter: 11:30 - Assessment and Plan (1) Leukocytosis Current Visit: Yes Status: Acute Etiology unclear. The patient also had one isolated low-grade fever of 100.6 on 07/29/18, but has been afebrile since then. Also having intermittent tachycardia. Etiology unclear, but concern for urinary source given the new onset of supra- pubic discomfort and hematuria. Urinalysis noted. I have called the lab and asked them to add culture to the specimen already received since it was collected prior to antibiotics being started. Clinically, the patient's respiratory status appears improved, but will repeat CXR to evaluate for PNA. Abdominal exam benign. Check LFTs, amylase, and lipase. No symptoms of URI at this time. Continue Zosyn 3.375 grams IV Q8H for now. Duration of treatment depends on the clinical picture. Monitor renal function and dose-adjust antibiotics. Qualifiers: Leukocytosis type: unspecified Qualified Code(s): D72.829 - Elevated white blood cell count, unspecified (2) Hematuria Current Visit: Yes Status: Acute Etiology unclear: UTI vs. mccloud trauma vs. other. Consider CT of the abdomen/pelvis, but will defer to Urology. Recommend urology to evaluate. Qualifiers: Hematuria type: gross Qualified Code(s): R31.0 - Gross hematuria (3) Venous stasis of lower extremity Current Visit: Yes Status: Acute Location: BLE, left>right. Podiatry consulted and following. Vascular consulted. Consider venous doppler study.--> negative for DVT ESR 34 and CRP 29. Unable to perform CT scan due to patient is over weight limit for CT table. Clinically improved since last ID evaluation so I do not think this is the source of the patient's leukocytosis. (4) Pleural effusion Current Visit: Yes Status: Acute Location: Right lung. Likely secondary to CHF. CXR showed moderate right pleural effusion. Pulmonology evaluation noted. Diuresis/thoracentesis per the primary and pulmonology teams. Repeat CXR now. (5) TEAGAN (acute kidney injury) Current Visit: Yes Status: Acute Serum creatinine elevated at 1.97 on admission. Etiology unclear. Resolved. Continue to trend. Dose-adjust medications and avoid nephrotoxins. (6) Acute exacerbation of CHF (congestive heart failure) Current Visit: Yes Status: Acute Cardiology consulted. Await recommendations. Qualifiers: Heart failure type: diastolic Qualified Code(s): I50.33 - Acute on chronic diastolic (congestive) heart failure (7) Dyspnea Current Visit: Yes Status: Acute Likely secondary to CHF and pleural effusion. Appears improved. VQ scan was low probability for PE. Management per the primary team. Qualifiers: Dyspnea type: unspecified Qualified Code(s): R06.00 - Dyspnea, unspecified (8) Urinary incontinence Current Visit: Yes Status: Acute Etiology unclear. Mccloud catheter remains patent with new-onset hematuria. Recommend urology to evaluate. Qualifiers: Urinary Incontinence type: unspecified incontinence Qualified Code(s): R32 - Unspecified urinary incontinence (9) Obesities, morbid Current Visit: Yes Status: Chronic (10) Diabetes Current Visit: Yes Status: Acute Recommend aggressive glucose monitoring and control to promote healing and prevent re-infection. Management per the primary team. 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 (12) Hepatic injury Current Visit: Yes Status: Acute INR 1.7 on admission. LFT slightly elevated on admission, but haven't been re-checked. Liver UTS revealed hepatic steatosis. Repeat LFTs now. If remain elevated, recommend GI to evaluate. Qualifiers: Encounter type: initial encounter Qualified Code(s): S36.119A - Unspecified injury of liver, initial encounter - Subjective Interval history: Patient recently seen at request of the hospitalist for new onset of leukocytosis with unknown etiology. Briefly, the patient's a 62-year-old male with past medical history as stated below. The patient originally presented to the emergency department on 11/08 for shortness of breath, urinary, incontinence and left lower extremity changes that have been chronic for 5 years. We evaluated him and deemed that his left lower extremity changes were not cellulitis and were actually chronic venous stasis. We signed off the case. The patient remained in the hospital due to an impaired respiratory status. He is undergone testing for pulmonary embolus that was negative. He has had a Mccloud catheter since admission and has had some bloody urine. Urinalysis obtained 07/29/18 was positive for greater than 300 protein, moderate leukocyte esterase, and moderate blood. No urine culture was done. He did have a fever on 07/29/18 with a MAXIMUM TEMPERATURE of 100.6 with some intermittent tachycardia. He developed leukocytosis yesterday with a white count of 21,000 with bandemia. He continues to have some intermittent tachycardia. He has been afebrile for 48 hours. He was started on Zosyn yesterday. His white blood cell count is trending down. We have been asked to evaluate and make further recommendations. During my exam today, the patient states that overall he feels better than when he came in. He states he is not sure be short of breath at this point because he is not moving around very much, but denies any shortness of breath during my exam. He states his cough is improved. He does report a mild sore throat, but denies any earache or nasal congestion. He denies any headache. He does report chronic neck pain that is at baseline. He denies any chest or abdominal pain. He does report some suprapubic discomfort that he states feels like he needs to urinate although he does have a Mccloud catheter that is patent. He denies any appetite changes. He denies any nausea or vomiting or diarrhea area he denies oral thrush or any skin lesions. He states he thinks his legs look better. Infect Dis PN-Objective Data - Labs CBC & Chem 7: 07/31/18 09:24 07/31/18 09:24 Labs: Laboratory Results - last 24 hr 07/30/18 07/30/18 07/30/18 07:11 11:52 11:52 WBC 20.1 H D RBC 5.40 Hgb 13.2 Hct 46.3 MCV 85.7 MCH 24.4 L MCHC 28.5 L RDW 19.5 H Plt Count 124 L MPV 10.6 Immature Gran % Seg Neutrophils % 80.0 Band Neutrophils % 4.0 Lymphocytes % 12.0 Monocytes % 4.0 Eosinophils % Basophils % Neutrophils # 16.9 H Lymphocytes # 2.4 Monocytes # 0.8 Eosinophils # Basophils # Platelet Estimate Slight Decrease L Polychromasia 1+ A Hypochromasia Anisocytosis 1+ A Stomatocytes 1+ A Sodium 138 Potassium 3.7 Chloride 90 L Carbon Dioxide 43 H* BUN 23 Creatinine 0.96 Est GFR ( Amer) > 60 Est GFR (Non-Af Amer) > 60 BUN/Creatinine Ratio 24 Glucose 188 H POC Glucose 166 H Calculated Osmolality 295 Calcium 9.0 07/30/18 07/30/18 07/31/18 13:33 21:23 05:23 WBC 21.3 H RBC 5.18 Hgb 12.7 L Hct 44.9 MCV 86.7 MCH 24.5 L MCHC 28.3 L RDW 18.7 H Plt Count 161 MPV 11.7 Immature Gran % Seg Neutrophils % 84.0 Band Neutrophils % 6.0 H Lymphocytes % 4.0 Monocytes % 6.0 Eosinophils % Basophils % Neutrophils # 19.2 H Lymphocytes # 0.9 Monocytes # 1.3 Eosinophils # Basophils # Platelet Estimate Normal Polychromasia Hypochromasia Present A Anisocytosis Stomatocytes Sodium Potassium Chloride Carbon Dioxide BUN Creatinine Est GFR ( Amer) Est GFR (Non-Af Amer) BUN/Creatinine Ratio Glucose POC Glucose 221 H 189 H Calculated Osmolality Calcium 07/31/18 07/31/18 09:24 09:24 WBC 16.8 H RBC 4.82 Hgb 11.9 L Hct 42.1 MCV 87.3 MCH 24.7 L MCHC 28.3 L RDW 19.1 H Plt Count 138 L MPV 10.9 Immature Gran % 1.1 Seg Neutrophils % 87.9 Band Neutrophils % Lymphocytes % 2.8 Monocytes % 6.8 Eosinophils % 1.0 Basophils % 0.4 Neutrophils # 14.8 H Lymphocytes # 0.5 L Monocytes # 1.1 Eosinophils # 0.2 Basophils # 0.1 Platelet Estimate Normal Polychromasia Hypochromasia Anisocytosis Stomatocytes Sodium 139 Potassium 3.7 Chloride 92 L Carbon Dioxide 44 H* BUN 22 Creatinine 0.91 Est GFR ( Amer) > 60 Est GFR (Non-Af Amer) > 60 BUN/Creatinine Ratio 24 Glucose 169 H POC Glucose Calculated Osmolality 295 Calcium 8.5 L Cultures: Serology 07/29/18 07/27/18 07/24/18 Range/Units 22:15 19:00 22:14 Ur Specimen Adequacy Urine Color Red A Yellow (Yellow) Urine Clarity Cloudy A Cloudy A (Clear) Urine pH 8.0 6.5 (5.0-8.0) pH Units Ur Specific Toney 1.015 < 1.005 L (1.010-1.025) Urine Protein >=300 H Trace (Neg-Trace) mg/dL Urine Glucose (UA) Normal Normal (Normal) mg/dL Urine Ketones 15 H Negative (Negative) mg/dL Urine Blood Moderate H Large H (Negative) Urine Nitrite Negative Negative (Negative) Urine Bilirubin Small H Negative (Negative) Urine Urobilinogen 2.0 H Normal (Normal) mg/dL Ur Leukocyte Esterase Moderate H Small H (Negative) Urine Microscopic RBC TNTC H (0-3) per hpf Urine Microscopic WBC 3-5 H (0-3) per hpf Ur Squamous Epith Cells Moderate H (None-Few) per lpf Urine Bacteria None Seen (None-Few) per hpf Hyaline Casts None Seen (None-Few) per lpf HIV-1 RNA copies/mL <20 cpy/mL HIV RNA Quant Info NOT DETECTED (Not Detected) HIV-1 RNA Qnt Date Rpt <1.3 log Exam - Constitutional Vitals: Temp Pulse Resp BP Pulse Ox 97.9 F 92 20 102/60 93 07/31/18 10:25 07/31/18 10:25 07/31/18 10:25 07/31/18 10:25 07/31/18 10:25 General appearance: cooperative, morbidly obese, no acute distress - Head Head exam: Present: atraumatic, normal inspection, normocephalic - Eye Eye exam: Present: EOMI, normal appearance, PERRL Pupils: Present: normal accommodation - ENT ENT exam: Present: mucous membranes moist - Neck Neck exam: Present: normal inspection - Respiratory Respiratory exam: Present: decreased breath sounds (bilateral bases), CTAB. Absent: rales, respiratory distress, rhonchi, wheezes - Cardiovascular Cardiovascular exam: Present: RRR, +S1, +S2 - GI/Abdominal GI/Abdominal exam: Present: distended (morbidly obese), normal bowel sounds, soft. Absent: tenderness Additional comments: Mccloud catheter noted to be draining grossly bloody urine. - Extremities Exam Extremities exam: Present: pedal edema (1+ BLE), tenderness (LLE). Absent: joint swelling, normal inspection (Venous stasis dermatitis noted to the BLE. LLE remains with worse skin changes compared to the right, but overall improved since the last time I saw him.) - Neurological Exam Neurological exam: Present: alert, oriented X3, no focal deficits - Psychiatric Psychiatric exam: Present: normal affect, normal mood - Skin Skin exam: Present: dry, intact, normal color, warm Consult Discharge Plan - Plan Referrals: Ephraim Esquivel MD [Primary Care Provider] - - Attending Attestation I examined this patient and my medical decision-making was reviewed with the Resident Physician. I agree with the documented findings, disposition and treatment plan as described except to the extent set forth below.
[2018-07-31] MEDS: Aspirin Enteric Coated 81 MG Tablet PO SCH ×2 (11:51→22:17)
[2018-07-31] MEDS: Metoprolol XL (24 HR) Succ 50 MG TAB.ER.24H PO SCH (11:51)
--- NOTE | 2018-07-31 12:55 | Event Note ---
Date of Encounter: 07/31/18 Time of Encounter: 12:50 Patient resting quietly in bed. No complaints today , other than has been kept NPO for possible thoracentesis. He was restarted on antibiotics r/t new leukocytosis - WBC trending downward today. Patient's , Yvette at bedside. I revisited to ensure he had no follow up questions from goals of care discussion yesterday. He has been discussing with , his desires and they have been discussing code status, but have came to no decision as of yet. She did confirm she had paperwork for DNR, and had received copy of power of corporate attorney. I provided her my contact information if they come to point of decision. Will f/u in am if patient remains in hospital. D/W Dr. Benitez, and pt primary nurse Jose Antonio.
[2018-07-31 16:52] LABS: Alanine Aminotransferase 23 Units/L (7-52); Albumin 2.8 g/dL (3.5-5.7); Albumin/Globulin Ratio 0.8 (1.1-2.2); Alkaline Phosphatase 44 Units/L (34-104); Amylase 16 Units/L (29-103); Aspartate Amino Transferase 14 Units/L (13-39); Bilirubin,Direct 0.5 mg/dL (0.0-0.2); Bilirubin,Indirect 0.9 mg/dL (0.0-1.2); Bilirubin,Total 1.4 mg/dL (0.3-1.0); Globulin 3.7 g/dL (2.4-3.5); Lipase 12 Units/L (11-82); Total Protein 6.5 g/dL (6.4-8.9)
--- NOTE | 2018-07-31 19:35 | Internal Med Progress Note ---
Hospitalist Progress Note - Encounter Date of Encounter: 07/31/18 Time of Encounter: 11:00 - Subjective Interval History: Patient resting comfortably on 5-6 L of oxygen supplementation on oxygen mass. Patient does have gross hematuria in Mccloud catheter and bag Patient also with leukocytosis - Exam Vitals: Temp Pulse Resp BP Pulse Ox 99.1 F 94 16 100/64 95 07/31/18 19:25 07/31/18 19:25 07/31/18 19:25 07/31/18 19:25 07/31/18 19:25 Exam: Gen.: Nonacute distress, alert and oriented 3 ENT: Mucosal membranes moist Respiratory: Lungs are clear to auscultation bilaterally without any wheezing rhonchi or rales Cardiovascular: Normal S1 and S2 regular rate rhythm no murmurs rubs or gallops Abdomen: Soft, nontender and nondistended with positive bowel sounds Extremities: No lower extremity edema Skin: Normal color - Assessment and Plan (1) Hematuria Current Visit: Yes Status: Acute Assessment and Plan: Patient with gross hematuria in Mccloud catheter and bag Will consult urology and appreciate recommendations (2) Leukocytosis Current Visit: Yes Status: Acute Assessment and Plan: Pt's WBC 7.7 but went up to 20 and STAT repeat was 21.3. Etiology unclear. He is not on steroids. Pt has been afebrile and in fact states he is feeling better than he was yesterday. Will place on Zosyn. UA looks abnormal so will await repeat urine culture. Infectious disease consulted and appreciate recommendations (3) Urinary incontinence Current Visit: Yes Status: Acute Assessment and Plan: Urinary incontinence, unknown etiology. UA done in ED on admission contaminated. Re check UA showing moderate leuks. Started on Zosyn due to bump in WBC. Mccloud was placed but then discontinued 07/29/2018 but then replaced mccloud catheter 07/30/18. Pt started on flomax 07/31/2018. Retroperitoneal ultrasound US/US retroperitoneal comp IMPRESSION: Limited negative renal ultrasound. (4) Obesities, morbid Current Visit: Yes Status: Chronic Assessment and Plan: strongly recommending life style modification such as diet and exercise. (5) Pleural effusion Current Visit: Yes Status: Acute Assessment and Plan: Pleural effusion not seen; continue to monitor. (6) Diabetes Current Visit: Yes Status: Acute Assessment and Plan: Diabetes which appears to be in relatively good control Patient has been on pioglitazone which is not a great medication for him considering suspected heart failure. Will DC prioglitazone and likely send home on Insulin. (7) TEAGAN (acute kidney injury) Current Visit: Yes Status: Acute Assessment and Plan: Resolved; continue to monitor (8) Intertrigo Current Visit: Yes Status: Acute Assessment and Plan: On miconazole (9) CHF (congestive heart failure), NYHA class III Current Visit: Yes Status: Acute Assessment and Plan: Patient had worsening dyspnea on exertion, elevated BNP on admission 731 Chest x-ray demonstrated right pleural effusion and pulmonary vascular congestion Echo showed severe pulmonary hypertension with dilated right atrium likely 2/2 to diastolic CHF Was on lasixon admission, but this has been held due to over diuresis but then resumed on Lasix 07/26/18 due to worsening hypoxia and oxygen requirement going from 2L to 5L NC. Unfortunately BUN up again 07/30/2018 at 24 so Lasix held again. Will place on Low dose Lasi 20 mg PO daily as pt till requires some diuretic on board. Will continue ot monitor renal function closely. At this point will consult palliative care for assistance with discharge planing as pt's prognosis is guarded. (10) Acute on chronic respiratory failure with hypoxia and hypercapnia Current Visit: Yes Status: Acute (11) Pulmonary hypertension Current Visit: Yes Status: Acute Assessment and Plan: Pulmonary HTN with evidence of cor pulmonale. Pt is difficult to diurese. Will continue supportive care with O2, BiPAP and symbicort. Will place on Lasix 20 mg PO QD for now. Prognosis guarded - Time Spent with Patient Total time spent is greater than 50% in coordination of care (as documented) at patient's floor/unit and/or counseling patient: Internal Medicine: Result - Labs CBC & Chem 7: 07/31/18 09:24 07/31/18 09:24 Labs: Short CBC 07/31/18 Range/Units 09:24 WBC 16.8 H (4.3-11.1) K/mcL Hgb 11.9 L (12.9-16.9) g/dL Hct 42.1 (37.5-50.1) % Plt Count 138 L (140-400) K/mcL Neutrophils # 14.8 H (1.6-8.9) K/mcL BMP 07/31/18 09:24 Sodium 139 Potassium 3.7 Chloride 92 L Carbon Dioxide 44 H* BUN 22 Creatinine 0.91 Glucose 169 H Calcium 8.5 L Liver Function 07/31/18 Range/Units 09:24 Total Bilirubin 1.4 H (0.3-1.0) mg/dL Direct Bilirubin 0.5 H (0.0-0.2) mg/dL AST 14 (13-39) Units/L ALT 23 (7-52) Units/L Alkaline Phosphatase 44 (34-104) Units/L Albumin 2.8 L (3.5-5.7) g/dL - ABG Interpretation ABG results: ABG ABG pH 7.37 pH Units (7.32-7.45) 07/25/18 10:38 ABG pCO2 79 mmHg (35-45) H* 07/25/18 10:38 ABG pO2 71 mmHg (85-104) L 07/25/18 10:38 ABG O2 Saturation 92 % (95-98) L 07/25/18 10:38 PT/INR, D-dimer PT 18.0 Seconds (9.4-12.1) H 07/23/18 05:06 - Impressions Impressions Abdomen/Pelvis/Transvag US 07/30/18 15:03 IMPRESSION: 1. No pleural effusions seen with ultrasound. No thoracentesis indicated. D/ / Vinicio Resendiz MD / Vinicio Resendiz MD Interpreting Provider: Vinicio Resendiz MD Consult Discharge Plan - Plan Referrals: Ephraim Esquivel MD [Primary Care Provider] - (1) Hematuria Qualifiers: Hematuria type: gross Qualified Code(s): R31.0 - Gross hematuria (2) Leukocytosis Qualifiers: Leukocytosis type: unspecified Qualified Code(s): D72.829 - Elevated white blood cell count, unspecified (3) Urinary incontinence Qualifiers: Urinary Incontinence type: unspecified incontinence Qualified Code(s): R32 - Unspecified urinary incontinence (6) Diabetes Qualifiers: Diabetes mellitus type: type 2 Diabetes mellitus long-term insulin use: with rat exterminator use Diabetes mellitus complication status: with skin complications Diabetes mellitus complication detail: with dermatitis Qualified Code(s): E11.620 - Type 2 diabetes mellitus with diabetic dermatitis; Z79.4 - terminal gauger ( current) use of insulin (9) CHF (congestive heart failure), NYHA class III Qualifiers: Congestive heart failure type: diastolic Congestive heart failure chronicity : acute Qualified Code(s): I50.31 - Acute diastolic (congestive) heart failure
[2018-08-01] MEDS: Piperacillin/Tazobactam 3.375 GM in 0.9 % Sodium Chloride Mini Bag 100 ML IVPB SCH ×3 (00:30→18:29)
[2018-08-01] MEDS: *HR* Heparin 5,000 UNIT/ML VIAL SQ SCH ×2 (06:13→16:17)
[2018-08-01] MEDS: Metoprolol XL (24 HR) Succ 50 MG TAB.ER.24H PO SCH (08:30)
[2018-08-01] MEDS: Aspirin Enteric Coated 81 MG Tablet PO SCH ×2 (08:30→21:54)
[2018-08-01] MEDS: Insulin LISPRO 300 UNITS/3 ML VIAL SQ SCH ×4 (08:30→21:55)
[2018-08-01] MEDS: Clotrimazole/Betameth Dip CRM 45 APPL/45 GM TUBE TP SCH (08:55)
[2018-08-01] MEDS: MICONAZOLE NITRATE 57 GM TUBE TP SCH (08:55)
--- NOTE | 2018-08-01 08:57 | Urology - Consult Note ---
<Yomaira Rodriguez N - Last Filed: 08/01/18 08:50> Date of Encounter: 08/01/18 Time of Encounter: 08:51 - Assessment and Plan (1) Hematuria Status: Acute Assessment and plan: Patient is a 62-year-old male who presents the history of gross hematuria following catheter placement and anticoagulation. Heparin has been held since gross hematuria was identified. Hematuria seems to be much improved per nurse. I recommend to hold heparin until urine remains clear, if this can be safely done for the patient. Patient states he is able to void without difficulty at his baseline, and he does not wish to go home with the catheter. I will leave catheter placement up to the primary team. If patient is discharged with catheter, he may continue Flomax and be seen in the urology office within 7-10 days to complete a voiding trial. If hematuria acutely worsens, I explained to the patient that I will upsize catheter and start CBI if needed. Urology will follow as needed. Qualifiers: Hematuria type: gross Qualified Code(s): R31.0 - Gross hematuria Urology CN:HPI Consult date: 08/01/18 Reason for consult Urology: Gross Hematuria History of present illness: Patient is a 62-year-old male who presents with a history of gross hematuria following catheter placement. Patient has multiple comorbidities such as morbid obesity, CHF, pulmonary hypertension, diabetes, venous insufficiency and has been placed on intravenous heparin. Heparin was held yesterday after hematuria was noticed. Today, hematuria is improved and urine is transparent dark yellow in tubing. Patient is on fluid restriction, therefore he is unable to intake a greater amount of water. Patient denies any known prior history of hematuria. Patient admits to a 20 year smoking history but stopped in 1992. Patient denies a personal or family history of renal stones or renal carcinoma. Patient denies a personal or family history of prostate cancer. Patient denies fever, chills, flank pain. Patient underwent a renal and bladder ultrasound that was reassuring. Past Med Surg Social Fam HX - Past Medical History Medical history: diabetes, hypertension Psychiatric history: no psych history - Past Surgical History Additional surgical history: right foot surgery - Social History Smoking Status: Former smoker Alcohol use: none Drug use: none - Family History Mother Family Member Ethnicity: Non- Living Status: Age at : 71 Hx Family Cancer: Yes (lung/brain cancer) Hx Family Endocrine Disorder: Yes (diabetes) Father Family Member Ethnicity: Non- Living Status: Age at : 75 Hx Family Cardiac Disorders: Yes (heart attack) Medications and Allergies Aspirin Enteric Coated [Aspirin EC] 81 mg PO BID 07/22/18 [History] Atorvastatin Calcium [Lipitor] 20 mg PO HS 07/22/18 [History] Cholecalciferol (D-3) [Vitamin D] 5,000 unit PO DAILY 07/22/18 [History] Insulin ASPART [NovoLOG] 20 - 24 unit SQ TIDWM 07/22/18 [History] Metoprolol Succinate [Kapspargo Sprinkle] 50 mg PO DAILY 07/22/18 [History] Quinapril/Hydrochlorothiazide [Quinapril-Hctz 20-12.5 mg Tab] 1 tab PO DAILY 11/08 [History] Clotrimazole/Betameth Dip CRM [Lotrisone CRM] 1 appl TP BID #1 tube 08/02/18 [Rx ] Fluticasone/Salmeterol [Advair 100-50 Diskus] 1 each IH BID #1 blst.w.dev [Rx] Furosemide [Lasix] 20 mg PO DAILY #30 08/02/18 [Rx] Insulin Glargine [Lantus] 10 unit SQ HS #30 mls 08/02/18 [Rx] Miconazole Nitrate [Georgie Antifungal] 1 appl TP DAILY #1 tube 08/02/18 [Rx] Tamsulosin [Flomax] 0.4 mg PO DAILY #30 capsule 08/02/18 [Rx] levoFLOXacin [Levaquin] 750 mg PO DAILY #10 tablet 08/02/18 [Rx] metFORMIN [Glucophage] 500 mg PO BIDWM #60 tablet 08/02/18 [Rx] 3 Allergy/AdvReac Type Severity Reaction Status Date / Time No Known Allergies Allergy Verified 07/22/18 21:27 Review of Systems - Constitutional no chills, no fatigue, no fever(s) - EENT Nose, mouth and throat: no dizziness, no headache(s) - Cardiovascular no chest pain, no diaphoresis, no dyspnea - Respiratory no cough, no dyspnea - Gastrointestinal no abdominal pain, no nausea, no vomiting - Genitourinary hematuria, urinary frequency, urinary incontinence, urinary urgency, no difficulty urinating, no dysuria, no flank pain, no urinary hesitancy - Musculoskeletal no back pain, no muscle weakness - Integumentary erythema, swelling, no rash - Neurological no confusion, no syncope - Psychiatric no anxiety, no confusion - Hematologic/Lymphatic no easy bleeding, no easy bruising - Allergic/Immunologic no throat swelling, no wheezing Exam Initial Vital Signs Temp Pulse Resp BP Pulse Ox 98.5 F 80 20 139/79 85 07/22/18 21:27 07/22/18 21:27 07/22/18 21:27 07/22/18 21:27 07/22/18 21:27 - General physical appearance Present: no distress, no pain, obese - Eyes Present: PERRL, normal ocular movement - ENT Present: normal nares, no hearing loss - Neck Present: no masses, trachea midline - Respiratory Absent: normal respiratory effort - Cardiovascular Cardiovascular exam IM: RRR - Abdomen Abdomen: Present: soft, non tender - Genitourinary other (indwelling urethral catheter with clear dark yellow urine in tubing ) - Integumentary Present: no rash, no abnormal pigmentation - Neurologic Present: normal coordination - Musculoskeletal Present: other (bilateral venous stasis and lower leg edema ) Urology Results - Labs 07/31/18 09:24 07/31/18 09:24 Abnormal lab results WBC 16.8 K/mcL (4.3-11.1) H 07/31/18 09:24 Hgb 11.9 g/dL (12.9-16.9) L 07/31/18 09:24 MCH 24.7 pg (28.0-33.3) L 07/31/18 09:24 MCHC 28.3 g/dL (31.6-35.5) L 07/31/18 09:24 RDW 19.1 % (11.5-14.5) H 07/31/18 09:24 Plt Count 138 K/mcL (140-400) L 07/31/18 09:24 Band Neutrophils % 6.0 % (0-4) H 07/30/18 13:33 Neutrophils # 14.8 K/mcL (1.6-8.9) H 07/31/18 09:24 Lymphocytes # 0.5 K/mcL (0.6-4.6) L 07/31/18 09:24 Nucleated RBCs/100 WBC 0.8 /100 WBC (0) H 07/23/18 05:06 Reactive Lymphocytes Present (Not Present) A 07/29/18 04:41 Toxic Granulation Present (Not Present) A 07/27/18 01:10 Polychromasia 1+ (Not Present) A 07/30/18 11:52 Hypochromasia Present (Not Present) A 07/30/18 13:33 Anisocytosis 1+ (Not Present) A 07/30/18 11:52 Stomatocytes 1+ (Not Present) A 07/30/18 11:52 ESR 34 mm/hr (0-10) H 07/24/18 03:43 PT 18.0 Seconds (9.4-12.1) H 07/23/18 05:06 ABG pCO2 79 mmHg (35-45) H* 07/25/18 10:38 ABG pO2 71 mmHg (85-104) L 07/25/18 10:38 ABG HCO3 46 mEq/L (21-27) H 07/25/18 10:38 ABG Total CO2 49 mEq/L (20-26) H 07/25/18 10:38 ABG O2 Saturation 92 % (95-98) L 07/25/18 10:38 ABG Base Excess 16 mEq/L (-2 to 3) H 07/25/18 10:38 Chloride 92 mEq/L (98-107) L 07/31/18 09:24 Carbon Dioxide 44 mEq/L (23-29) H* 07/31/18 09:24 Glucose 169 mg/dL (70-105) H 07/31/18 09:24 POC Glucose 225 mg/dL (70-99) H 07/31/18 21:16 Calcium 8.5 mg/dL (8.6-10.3) L 07/31/18 09:24 Total Bilirubin 1.4 mg/dL (0.3-1.0) H 07/31/18 09:24 Direct Bilirubin 0.5 mg/dL (0.0-0.2) H 07/31/18 09:24 C-Reactive Protein 29 mg/L (Less than 10) H 07/24/18 03:43 B-Natriuretic Peptide 485 pg/mL (Less than 100) H 07/27/18 01:10 Albumin 2.8 g/dL (3.5-5.7) L 07/31/18 09:24 Globulin 3.7 g/dL (2.4-3.5) H 07/31/18 09:24 Albumin/Globulin Ratio 0.8 (1.1-2.2) L 07/31/18 09:24 HDL Cholesterol 28 mg/dL (40-59) L 07/23/18 05:06 Amylase 16 Units/L (29-103) L 07/31/18 09:24 Urine Color Red (Yellow) A 07/29/18 22:15 Urine Clarity Cloudy (Clear) A 07/29/18 22:15 Urine Protein >=300 mg/dL (Neg-Trace) H 07/29/18 22:15 Urine Ketones 15 mg/dL (Negative) H 07/29/18 22:15 Urine Blood Moderate (Negative) H 07/29/18 22:15 Urine Bilirubin Small (Negative) H 07/29/18 22:15 Urine Urobilinogen 2.0 mg/dL (Normal) H 07/29/18 22:15 Ur Leukocyte Esterase Moderate (Negative) H 07/29/18 22:15 Urine Microscopic RBC TNTC per hpf (0-3) H 07/27/18 19:00 Urine Microscopic WBC 3-5 per hpf (0-3) H 07/27/18 19:00 Ur Squamous Epith Cells Moderate per lpf (None-Few) H 07/27/18 19:00 Urine Mucus Many (Few) H 07/22/18 22:22 Urine Total Protein 18 mg/dL (1-14) H 07/23/18 03:33 Diabetes panel 07/31/18 Range/Units 09:24 Sodium 139 (136-145) mEq/L Potassium 3.7 (3.5-5.1) mEq/L Chloride 92 L (98-107) mEq/L Carbon Dioxide 44 H* (23-29) mEq/L BUN 22 (8-23) mg/dL Creatinine 0.91 (0.70-1.30) mg/dL Glucose 169 H (70-105) mg/dL Calcium 8.5 L (8.6-10.3) mg/dL AST 14 (13-39) Units/L ALT 23 (7-52) Units/L Alkaline Phosphatase 44 (34-104) Units/L Albumin 2.8 L (3.5-5.7) g/dL Calcium panel 07/31/18 Range/Units 09:24 Calcium 8.5 L (8.6-10.3) mg/dL Albumin 2.8 L (3.5-5.7) g/dL Pituitary panel 07/31/18 Range/Units 09:24 Sodium 139 (136-145) mEq/L Potassium 3.7 (3.5-5.1) mEq/L Chloride 92 L (98-107) mEq/L Carbon Dioxide 44 H* (23-29) mEq/L BUN 22 (8-23) mg/dL Creatinine 0.91 (0.70-1.30) mg/dL Glucose 169 H (70-105) mg/dL Calcium 8.5 L (8.6-10.3) mg/dL Adrenal panel 07/31/18 Range/Units 09:24 Sodium 139 (136-145) mEq/L Potassium 3.7 (3.5-5.1) mEq/L Chloride 92 L (98-107) mEq/L Carbon Dioxide 44 H* (23-29) mEq/L BUN 22 (8-23) mg/dL Creatinine 0.91 (0.70-1.30) mg/dL Glucose 169 H (70-105) mg/dL Calcium 8.5 L (8.6-10.3) mg/dL Total Bilirubin 1.4 H (0.3-1.0) mg/dL AST 14 (13-39) Units/L ALT 23 (7-52) Units/L Alkaline Phosphatase 44 (34-104) Units/L Albumin 2.8 L (3.5-5.7) g/dL All other labs normal. - Imaging US - kidney/bladder: report reviewed, image reviewed Consult Discharge Plan - Plan Instructions: Urinary Tract Infection in Men (DC), Cellulitis (DC) Additional Instructions: follow up with PCP, and pulmonary Referrals: Ephraim Esquivel MD [Primary Care Provider] - Prescriptions: Clotrimazole/Betameth Dip CRM [Lotrisone CRM] 1 appl TP BID #1 tube Fluticasone/Salmeterol [Advair 100-50 Diskus] 1 each IH BID #1 blst.w.dev Furosemide [Lasix] 20 mg PO DAILY #30 Insulin Glargine [Lantus] 10 unit SQ HS #30 mls levoFLOXacin [Levaquin] 750 mg PO DAILY #10 tablet metFORMIN [Glucophage] 500 mg PO BIDWM #60 tablet Miconazole Nitrate [Georgie Antifungal] 1 appl TP DAILY #1 tube Tamsulosin [Flomax] 0.4 mg PO DAILY #30 capsule <CarterMikey Shreya - Last Filed: 08/03/18 07:36> Date of Encounter: 08/03/18 - Assessment and Plan (1) Hematuria Status: Acute Qualifiers: Hematuria type: gross Qualified Code(s): R31.0 - Gross hematuria (2) Gross hematuria Status: Acute Assessment and plan: Agree with physician activity assistant's plan and assessment. I did evaluate the patient prior to discharge. He was voiding and urine was nearly clear. We discussed that the gross hematuria could be due to a number of things including catheter trauma or even urothelial malignancy. In light of other comorbidities patient wishes to observe and not proceed with any aggressive workup. My number was provided if symptoms persist. Exam Initial Vital Signs Temp Pulse Resp BP Pulse Ox 98.5 F 80 20 139/79 85 07/22/18 21:27 07/22/18 21:27 07/22/18 21:27 07/22/18 21:27 07/22/18 21:27 Urology Results - Labs 08/02/18 10:35 08/02/18 10:35 Abnormal lab results Hgb 11.6 g/dL (12.9-16.9) L 08/02/18 10:35 MCH 24.1 pg (28.0-33.3) L 08/02/18 10:35 MCHC 27.3 g/dL (31.6-35.5) L 08/02/18 10:35 RDW 18.3 % (11.5-14.5) H 08/02/18 10:35 Band Neutrophils % 6.0 % (0-4) H 07/30/18 13:33 Lymphocytes # 0.5 K/mcL (0.6-4.6) L 08/02/18 10:35 Nucleated RBCs/100 WBC 0.8 /100 WBC (0) H 07/23/18 05:06 Reactive Lymphocytes Present (Not Present) A 07/29/18 04:41 Toxic Granulation Present (Not Present) A 07/27/18 01:10 Polychromasia 1+ (Not Present) A 07/30/18 11:52 Hypochromasia Present (Not Present) A 08/02/18 10:35 Anisocytosis 1+ (Not Present) A 08/02/18 10:35 Microcytosis Present (Not Present) A 08/02/18 10:35 Stomatocytes 1+ (Not Present) A 07/30/18 11:52 ESR 34 mm/hr (0-10) H 07/24/18 03:43 PT 18.0 Seconds (9.4-12.1) H 07/23/18 05:06 ABG pCO2 79 mmHg (35-45) H* 07/25/18 10:38 ABG pO2 71 mmHg (85-104) L 07/25/18 10:38 ABG HCO3 46 mEq/L (21-27) H 07/25/18 10:38 ABG Total CO2 49 mEq/L (20-26) H 07/25/18 10:38 ABG O2 Saturation 92 % (95-98) L 07/25/18 10:38 ABG Base Excess 16 mEq/L (-2 to 3) H 07/25/18 10:38 Chloride 93 mEq/L (98-107) L 08/02/18 10:35 Carbon Dioxide 42 mEq/L (23-29) H* 08/02/18 10:35 Glucose 245 mg/dL (70-105) H 08/02/18 10:35 POC Glucose 191 mg/dL (70-99) H 08/01/18 21:11 Calcium 8.2 mg/dL (8.6-10.3) L 08/02/18 10:35 Total Bilirubin 1.4 mg/dL (0.3-1.0) H 07/31/18 09:24 Direct Bilirubin 0.5 mg/dL (0.0-0.2) H 07/31/18 09:24 C-Reactive Protein 29 mg/L (Less than 10) H 07/24/18 03:43 B-Natriuretic Peptide 485 pg/mL (Less than 100) H 07/27/18 01:10 Albumin 2.8 g/dL (3.5-5.7) L 07/31/18 09:24 Globulin 3.7 g/dL (2.4-3.5) H 07/31/18 09:24 Albumin/Globulin Ratio 0.8 (1.1-2.2) L 07/31/18 09:24 HDL Cholesterol 28 mg/dL (40-59) L 07/23/18 05:06 Amylase 16 Units/L (29-103) L 07/31/18 09:24 Urine Color Red (Yellow) A 07/29/18 22:15 Urine Clarity Cloudy (Clear) A 07/29/18 22:15 Urine Protein >=300 mg/dL (Neg-Trace) H 07/29/18 22:15 Urine Ketones 15 mg/dL (Negative) H 07/29/18 22:15 Urine Blood Moderate (Negative) H 07/29/18 22:15 Urine Bilirubin Small (Negative) H 07/29/18 22:15 Urine Urobilinogen 2.0 mg/dL (Normal) H 07/29/18 22:15 Ur Leukocyte Esterase Moderate (Negative) H 07/29/18 22:15 Urine Microscopic RBC TNTC per hpf (0-3) H 07/27/18 19:00 Urine Microscopic WBC 3-5 per hpf (0-3) H 07/27/18 19:00 Ur Squamous Epith Cells Moderate per lpf (None-Few) H 07/27/18 19:00 Urine Mucus Many (Few) H 07/22/18 22:22 Urine Total Protein 18 mg/dL (1-14) H 07/23/18 03:33 Diabetes panel 08/02/18 Range/Units 10:35 Sodium 139 (136-145) mEq/L Potassium 3.7 (3.5-5.1) mEq/L Chloride 93 L (98-107) mEq/L Carbon Dioxide 42 H* (23-29) mEq/L BUN 20 (8-23) mg/dL Creatinine 0.80 (0.70-1.30) mg/dL Glucose 245 H (70-105) mg/dL Calcium 8.2 L (8.6-10.3) mg/dL Calcium panel 08/02/18 Range/Units 10:35 Calcium 8.2 L (8.6-10.3) mg/dL Pituitary panel 08/02/18 Range/Units 10:35 Sodium 139 (136-145) mEq/L Potassium 3.7 (3.5-5.1) mEq/L Chloride 93 L (98-107) mEq/L Carbon Dioxide 42 H* (23-29) mEq/L BUN 20 (8-23) mg/dL Creatinine 0.80 (0.70-1.30) mg/dL Glucose 245 H (70-105) mg/dL Calcium 8.2 L (8.6-10.3) mg/dL Adrenal panel 08/02/18 Range/Units 10:35 Sodium 139 (136-145) mEq/L Potassium 3.7 (3.5-5.1) mEq/L Chloride 93 L (98-107) mEq/L Carbon Dioxide 42 H* (23-29) mEq/L BUN 20 (8-23) mg/dL Creatinine 0.80 (0.70-1.30) mg/dL Glucose 245 H (70-105) mg/dL Calcium 8.2 L (8.6-10.3) mg/dL All other labs normal.
[2018-08-01 09:46] LABS: Immature Granulocytes % 0.7 % (0-4)
[2018-08-01 09:48] LABS: Basophils % 0.3 %; Eosinophils # 0.2 K/mcL (0.0-0.6); Eosinophils % 1.8 %; Hematocrit 43.8 % (37.5-50.1); Hemoglobin 12.1 g/dL (12.9-16.9); Lymphocytes # 0.4 K/mcL (0.6-4.6); Lymphocytes % 3.7 %; Mean Corpuscular HGB Conc 27.6 g/dL (31.6-35.5); Mean Corpuscular Hemoglobin 24.4 pg (28.0-33.3); Mean Corpuscular Volume 88.3 fL (83.0-100.0); Mean Platelet Volume 10.9 fL (9.4-12.4); Monocytes # 0.8 K/mcL (0.0-1.3); Monocytes % 6.9 %; Neutrophils # 9.9 K/mcL (1.6-8.9); Platelet Count 140 K/mcL (140-400); Red Blood Count 4.96 M/mcL (4.19-5.50); Red Cell Distribution Width 18.5 % (11.5-14.5); Segmented Neutrophils % 86.6 %
[2018-08-01 10:06] LABS: BUN/Creatinine Ratio 23 (6-26); Blood Urea Nitrogen 20 mg/dL (8-23); Calcium 8.3 mg/dL (8.6-10.3); Carbon Dioxide 41 mEq/L (23-29); Chloride 93 mEq/L (98-107); Glucose 243 mg/dL (70-105); Osmolality,Calculated 301 (280-300); Potassium 3.7 mEq/L (3.5-5.1); Sodium 140 mEq/L (136-145); eGFR For Non-African Americans > 60 (> 60)
[2018-08-01 10:18] LABS: Platelet Estimate Normal (Normal)
[2018-08-01] MEDS: Budesonide/Formoterol 80/4.5 MDI IH SCH ×2 (11:06→21:57)
--- NOTE | 2018-08-01 12:45 | Palliative Progress Note ---
Date of Encounter: 08/01/18 Time of Encounter: 11:00 - Assessment and plan (1) Advanced care planning/counseling discussion Current Visit: Yes Status: Acute Assessment and plan: [id number] with pt and today as they have been having conversations regarding his wishes. Patient has decided he does not want heroic measures in the event of a cardiac or resp arrest, and he does not ever want intubated and placed on a ventilator. Reviewed levels of code status again with them, and he desired to transition code status to DNR/DNI. State form completed and copies provided to family as well as place in medical record. His discharge plan remains to go home with home health. D/W Dr. Benitez. (2) Dyspnea Current Visit: Yes Status: Acute Assessment and plan: Improved, pt oxygen has been decreased to 5LPM. Remains on Symbicort with Duonebs PRN. Qualifiers: Dyspnea type: unspecified Qualified Code(s): R06.00 - Dyspnea, unspecified (3) Acute exacerbation of CHF (congestive heart failure) Current Visit: Yes Status: Acute Qualifiers: Heart failure type: diastolic Qualified Code(s): I50.33 - Acute on chronic diastolic (congestive) heart failure (4) Chronic respiratory failure with hypoxia Current Visit: Yes Status: Acute (5) Pulmonary hypertension Current Visit: Yes Status: Acute - Time Spent With Patient Total time spent is greater than 50% in coordination of care (as documented) at patient's floor/unit and/or counseling patient: - Subjective Interval history: Patient awake and alert, at bedside. States that he is feeling better, less discomfort from catheter. Urine appears to be clearing. Leukocytosis improving as well. - Constitutional Vitals: Abnormal lab results WBC 11.4 K/mcL (4.3-11.1) H 08/01/18 09:22 Hgb 12.1 g/dL (12.9-16.9) L 08/01/18 09:22 MCH 24.4 pg (28.0-33.3) L 08/01/18 09:22 MCHC 27.6 g/dL (31.6-35.5) L 08/01/18 09:22 RDW 18.5 % (11.5-14.5) H 08/01/18 09:22 Band Neutrophils % 6.0 % (0-4) H 07/30/18 13:33 Neutrophils # 9.9 K/mcL (1.6-8.9) H 08/01/18 09:22 Lymphocytes # 0.4 K/mcL (0.6-4.6) L 08/01/18 09:22 Nucleated RBCs/100 WBC 0.8 /100 WBC (0) H 07/23/18 05:06 Reactive Lymphocytes Present (Not Present) A 07/29/18 04:41 Toxic Granulation Present (Not Present) A 07/27/18 01:10 Polychromasia 1+ (Not Present) A 07/30/18 11:52 Hypochromasia Present (Not Present) A 07/30/18 13:33 Anisocytosis 1+ (Not Present) A 07/30/18 11:52 Stomatocytes 1+ (Not Present) A 07/30/18 11:52 ESR 34 mm/hr (0-10) H 07/24/18 03:43 PT 18.0 Seconds (9.4-12.1) H 07/23/18 05:06 ABG pCO2 79 mmHg (35-45) H* 07/25/18 10:38 ABG pO2 71 mmHg (85-104) L 07/25/18 10:38 ABG HCO3 46 mEq/L (21-27) H 07/25/18 10:38 ABG Total CO2 49 mEq/L (20-26) H 07/25/18 10:38 ABG O2 Saturation 92 % (95-98) L 07/25/18 10:38 ABG Base Excess 16 mEq/L (-2 to 3) H 07/25/18 10:38 Chloride 93 mEq/L (98-107) L 08/01/18 09:22 Carbon Dioxide 41 mEq/L (23-29) H* 08/01/18 09:22 Glucose 243 mg/dL (70-105) H 08/01/18 09:22 POC Glucose 225 mg/dL (70-99) H 07/31/18 21:16 Calculated Osmolality 301 (280-300) H 08/01/18 09:22 Calcium 8.3 mg/dL (8.6-10.3) L 08/01/18 09:22 Total Bilirubin 1.4 mg/dL (0.3-1.0) H 07/31/18 09:24 Direct Bilirubin 0.5 mg/dL (0.0-0.2) H 07/31/18 09:24 C-Reactive Protein 29 mg/L (Less than 10) H 07/24/18 03:43 B-Natriuretic Peptide 485 pg/mL (Less than 100) H 07/27/18 01:10 Albumin 2.8 g/dL (3.5-5.7) L 07/31/18 09:24 Globulin 3.7 g/dL (2.4-3.5) H 07/31/18 09:24 Albumin/Globulin Ratio 0.8 (1.1-2.2) L 07/31/18 09:24 HDL Cholesterol 28 mg/dL (40-59) L 07/23/18 05:06 Amylase 16 Units/L (29-103) L 07/31/18 09:24 Urine Color Red (Yellow) A 07/29/18 22:15 Urine Clarity Cloudy (Clear) A 07/29/18 22:15 Urine Protein >=300 mg/dL (Neg-Trace) H 07/29/18 22:15 Urine Ketones 15 mg/dL (Negative) H 07/29/18 22:15 Urine Blood Moderate (Negative) H 07/29/18 22:15 Urine Bilirubin Small (Negative) H 07/29/18 22:15 Urine Urobilinogen 2.0 mg/dL (Normal) H 07/29/18 22:15 Ur Leukocyte Esterase Moderate (Negative) H 07/29/18 22:15 Urine Microscopic RBC TNTC per hpf (0-3) H 07/27/18 19:00 Urine Microscopic WBC 3-5 per hpf (0-3) H 07/27/18 19:00 Ur Squamous Epith Cells Moderate per lpf (None-Few) H 07/27/18 19:00 Urine Mucus Many (Few) H 07/22/18 22:22 Urine Total Protein 18 mg/dL (1-14) H 07/23/18 03:33 General appearance: Present: morbidly obese, no acute distress - Respiratory Respiratory exam: Present: decreased breath sounds, CTAB - Cardiovascular Cardiovascular exam: Present: +S1, +S2 - GI/Abdominal GI/Abdominal exam: Present: normal bowel sounds, soft - Additional comments: Urine light dominguez in tubing - no clots noted - Extremities Exam Additional comments: Edema remains to lower extremities. Left lower extremity with ulcer - wrapped with rosemary and D/I. - Neurological Exam Neurological exam: Present: alert, oriented X3, strengths equal and symetr throughout Palliative Quality Palliative Quality: Screen for Code Status: Yes, Screen for Goals of Care: Yes, Screen for Pain: Yes, If Pain Regimen Started, Initiate Bowel Regimen: NA, Screen for Nausea/Vomitting: Yes Code Status: 08/01/18 11:21 DNR [Resuscitation Status: Active] [RES] Routine Comment: Resuscitation Status: [id number] - Labs CBC & Chem 7: 08/01/18 09:22 08/01/18 09:22 Labs: Laboratory Results - last 24 hr 07/30/18 07/30/18 07/31/18 14:56 17:06 09:24 WBC RBC Hgb Hct MCV MCH MCHC RDW Plt Count MPV Immature Gran % Seg Neutrophils % Lymphocytes % Monocytes % Eosinophils % Basophils % Neutrophils # Lymphocytes # Monocytes # Eosinophils # Basophils # Platelet Estimate Sodium 139 Potassium 3.7 Chloride 92 L Carbon Dioxide 44 H* BUN 22 Creatinine 0.91 Est GFR ( Amer) > 60 Est GFR (Non-Af Amer) > 60 BUN/Creatinine Ratio 24 Glucose 169 H POC Glucose 200 H 158 H Calculated Osmolality 295 Calcium 8.5 L Total Bilirubin 1.4 H Direct Bilirubin 0.5 H Indirect Bilirubin 0.9 AST 14 ALT 23 Alkaline Phosphatase 44 Serum Total Protein 6.5 Albumin 2.8 L Globulin 3.7 H Albumin/Globulin Ratio 0.8 L Amylase 16 L Lipase 12 07/31/18 07/31/18 07/31/18 10:58 16:12 21:16 WBC RBC Hgb Hct MCV MCH MCHC RDW Plt Count MPV Immature Gran % Seg Neutrophils % Lymphocytes % Monocytes % Eosinophils % Basophils % Neutrophils # Lymphocytes # Monocytes # Eosinophils # Basophils # Platelet Estimate Sodium Potassium Chloride Carbon Dioxide BUN Creatinine Est GFR ( Amer) Est GFR (Non-Af Amer) BUN/Creatinine Ratio Glucose POC Glucose 159 H 191 H 225 H Calculated Osmolality Calcium Total Bilirubin Direct Bilirubin Indirect Bilirubin AST ALT Alkaline Phosphatase Serum Total Protein Albumin Globulin Albumin/Globulin Ratio Amylase Lipase 08/01/18 08/01/18 09:22 09:22 WBC 11.4 H RBC 4.96 Hgb 12.1 L Hct 43.8 MCV 88.3 MCH 24.4 L MCHC 27.6 L RDW 18.5 H Plt Count 140 MPV 10.9 Immature Gran % 0.7 Seg Neutrophils % 86.6 Lymphocytes % 3.7 Monocytes % 6.9 Eosinophils % 1.8 Basophils % 0.3 Neutrophils # 9.9 H Lymphocytes # 0.4 L Monocytes # 0.8 Eosinophils # 0.2 Basophils # 0.0 Platelet Estimate Normal Sodium 140 Potassium 3.7 Chloride 93 L Carbon Dioxide 41 H* BUN 20 Creatinine 0.88 Est GFR ( Amer) > 60 Est GFR (Non-Af Amer) > 60 BUN/Creatinine Ratio 23 Glucose 243 H POC Glucose Calculated Osmolality 301 H Calcium 8.3 L Total Bilirubin Direct Bilirubin Indirect Bilirubin AST ALT Alkaline Phosphatase Serum Total Protein Albumin Globulin Albumin/Globulin Ratio Amylase Lipase - Impressions Impressions Chest X-Ray 07/31/18 16:26 IMPRESSION: See findings above. D/ / Rmaesh Meyer / Ramesh Meyer Interpreting Provider: Ramesh Meyer - ABG Interpretation ABG results: ABG ABG pH 7.37 pH Units (7.32-7.45) 07/25/18 10:38 ABG pCO2 79 mmHg (35-45) H* 07/25/18 10:38 ABG pO2 71 mmHg (85-104) L 07/25/18 10:38 ABG O2 Saturation 92 % (95-98) L 07/25/18 10:38 PT/INR, D-dimer PT 18.0 Seconds (9.4-12.1) H 07/23/18 05:06 Consult Discharge Plan - Plan Referrals: Ephraim Esquivel MD [Primary Care Provider] -
--- NOTE | 2018-08-01 16:06 | Infectious Disease Progress No ---
Date of Encounter: 08/01/18 Time of Encounter: 16:04 - Assessment and Plan (1) Leukocytosis Status: Acute Likely secondary to UTI. The patient also reports new-onset dental pain and has a broken tooth. Tachycardia resolved. CXR limited due to patient habitus, but no obvious pneumonia noted. Abdominal exam benign. Check LFTs, amylase, and lipase.--> normal. No symptoms of URI at this time. Continue Zosyn 3.375 grams IV Q8H for now. Duration of treatment depends on the clinical picture. Monitor renal function and dose-adjust antibiotics. Qualifiers: Leukocytosis type: unspecified Qualified Code(s): D72.829 - Elevated white blood cell count, unspecified (2) Hematuria Status: Acute Etiology unclear: UTI vs. mccloud trauma vs. other. Improved. Consider CT of the abdomen/pelvis, but will defer to Urology. Urology consult noted. Qualifiers: Hematuria type: gross Qualified Code(s): R31.0 - Gross hematuria (3) UTI (urinary tract infection) Status: Acute Likely secondary to mccloud catheter. Causative organism unclear, but gram stain shows GNR. Continue Zosyn 3.375 grams IV Q8H for now. Await cultures and de-escalate if/when able. Duration of treatment depends on the clinical picture. Qualifiers: Urinary tract infection type: catheter-associated UTI Indwelling urinary catheter type: indwelling urethral catheter Encounter type: initial encounter Qualified Code(s): T83.511A - Infection and inflammatory reaction due to indwelling urethral catheter, initial encounter; N39.0 - Urinary tract infection , site not specified (4) Venous stasis of lower extremity Status: Acute Location: BLE, left>right. Podiatry consulted and following. Vascular consulted. Consider venous doppler study.--> negative for DVT ESR 34 and CRP 29. Unable to perform CT scan due to patient is over weight limit for CT table. Clinically improved since last ID evaluation so I do not think this is the source of the patient's leukocytosis. (5) Pleural effusion Status: Acute Location: Right lung. Likely secondary to CHF. CXR showed moderate right pleural effusion. Pulmonology evaluation noted. Diuresis/thoracentesis per the primary and pulmonology teams. (6) TEAGAN (acute kidney injury) Status: Acute Serum creatinine elevated at 1.97 on admission. Etiology unclear. Resolved. Continue to trend. Dose-adjust medications and avoid nephrotoxins. (7) Acute exacerbation of CHF (congestive heart failure) Status: Acute Cardiology consulted. Await recommendations. Qualifiers: Heart failure type: diastolic Qualified Code(s): I50.33 - Acute on chronic diastolic (congestive) heart failure (8) Dyspnea Status: Acute Likely secondary to CHF and pleural effusion. Appears improved. VQ scan was low probability for PE. Management per the primary team. Qualifiers: Dyspnea type: unspecified Qualified Code(s): R06.00 - Dyspnea, unspecified (9) Urinary incontinence Status: Acute Etiology unclear. Mccloud catheter remains patent with hematuria. Recommend urology to evaluate. Qualifiers: Urinary Incontinence type: unspecified incontinence Qualified Code(s): R32 - Unspecified urinary incontinence (10) Obesities, morbid Status: Chronic (11) Diabetes Status: Acute Recommend aggressive glucose monitoring and control to promote healing and prevent re-infection. Management per the primary team. Qualifiers: Diabetes mellitus type: type 2 Diabetes mellitus director long term care insulin use: with detention use Diabetes mellitus complication status: with skin complications Diabetes mellitus complication detail: with dermatitis Qualified Code(s): E11.620 - Type 2 diabetes mellitus with diabetic dermatitis; Z79.4 - detention (current) use of insulin (12) Intertrigo Status: Acute Topical antifungals as ordered by the primary team. (13) Hepatic injury Status: Resolved INR 1.7 on admission. LFT slightly elevated on admission, but haven't been re-checked. Liver UTS revealed hepatic steatosis. Repeat LFTs now. --> normal. Qualifiers: Encounter type: initial encounter Qualified Code(s): S36.119A - Unspecified injury of liver, initial encounter (14) Pain, dental Status: Acute The patient has very poor dentition with multiple missing/broken teeth. Concern for possible dental source of infection. Unable to do CT scan as the patient exceeds weight limit for CT table. Spoke with radiology. X-rays unlikely to yield any additional information. Continue Zosyn as above for now and monitor closely. - Subjective Interval history: Patient seen and examined with family at the bedside. No acute distress noted. No acute events noted overnight. Patient states that overall he feels okay. Denies fevers, chills, or rigors. Denies chest pain, shortness of breath, or cough. Denies nausea, vomiting, or diarrhea. Denies abdominal pain and states the bladder irritation is better. Denies oral thrush, but reports a tooth that is hurting and causing right facial pain. Infect Dis PN-Objective Data - Labs CBC & Chem 7: 08/02/18 10:35 08/02/18 10:35 Labs: Laboratory Results - last 24 hr 07/30/18 07/30/18 07/31/18 14:56 17:06 09:24 WBC RBC Hgb Hct MCV MCH MCHC RDW Plt Count MPV Immature Gran % Seg Neutrophils % Lymphocytes % Monocytes % Eosinophils % Basophils % Neutrophils # Lymphocytes # Monocytes # Eosinophils # Basophils # Platelet Estimate Sodium 139 Potassium 3.7 Chloride 92 L Carbon Dioxide 44 H* BUN 22 Creatinine 0.91 Est GFR ( Amer) > 60 Est GFR (Non-Af Amer) > 60 BUN/Creatinine Ratio 24 Glucose 169 H POC Glucose 200 H 158 H Calculated Osmolality 295 Calcium 8.5 L Total Bilirubin 1.4 H Direct Bilirubin 0.5 H Indirect Bilirubin 0.9 AST 14 ALT 23 Alkaline Phosphatase 44 Serum Total Protein 6.5 Albumin 2.8 L Globulin 3.7 H Albumin/Globulin Ratio 0.8 L Amylase 16 L Lipase 12 07/31/18 07/31/18 07/31/18 10:58 16:12 21:16 WBC RBC Hgb Hct MCV MCH MCHC RDW Plt Count MPV Immature Gran % Seg Neutrophils % Lymphocytes % Monocytes % Eosinophils % Basophils % Neutrophils # Lymphocytes # Monocytes # Eosinophils # Basophils # Platelet Estimate Sodium Potassium Chloride Carbon Dioxide BUN Creatinine Est GFR ( Amer) Est GFR (Non-Af Amer) BUN/Creatinine Ratio Glucose POC Glucose 159 H 191 H 225 H Calculated Osmolality Calcium Total Bilirubin Direct Bilirubin Indirect Bilirubin AST ALT Alkaline Phosphatase Serum Total Protein Albumin Globulin Albumin/Globulin Ratio Amylase Lipase 08/01/18 08/01/18 09:22 09:22 WBC 11.4 H RBC 4.96 Hgb 12.1 L Hct 43.8 MCV 88.3 MCH 24.4 L MCHC 27.6 L RDW 18.5 H Plt Count 140 MPV 10.9 Immature Gran % 0.7 Seg Neutrophils % 86.6 Lymphocytes % 3.7 Monocytes % 6.9 Eosinophils % 1.8 Basophils % 0.3 Neutrophils # 9.9 H Lymphocytes # 0.4 L Monocytes # 0.8 Eosinophils # 0.2 Basophils # 0.0 Platelet Estimate Normal Sodium 140 Potassium 3.7 Chloride 93 L Carbon Dioxide 41 H* BUN 20 Creatinine 0.88 Est GFR ( Amer) > 60 Est GFR (Non-Af Amer) > 60 BUN/Creatinine Ratio 23 Glucose 243 H POC Glucose Calculated Osmolality 301 H Calcium 8.3 L Total Bilirubin Direct Bilirubin Indirect Bilirubin AST ALT Alkaline Phosphatase Serum Total Protein Albumin Globulin Albumin/Globulin Ratio Amylase Lipase Cultures: Cultures 07/29/18 22:25 Urine Culture - Preliminary Urine,Mccloud Port Gram Negative Juan Serology 07/29/18 07/27/18 07/24/18 Range/Units 22:15 19:00 22:14 Ur Specimen Adequacy Urine Color Red A Yellow (Yellow) Urine Clarity Cloudy A Cloudy A (Clear) Urine pH 8.0 6.5 (5.0-8.0) pH Units Ur Specific Torrey 1.015 < 1.005 L (1.010-1.025) Urine Protein >=300 H Trace (Neg-Trace) mg/dL Urine Glucose (UA) Normal Normal (Normal) mg/dL Urine Ketones 15 H Negative (Negative) mg/dL Urine Blood Moderate H Large H (Negative) Urine Nitrite Negative Negative (Negative) Urine Bilirubin Small H Negative (Negative) Urine Urobilinogen 2.0 H Normal (Normal) mg/dL Ur Leukocyte Esterase Moderate H Small H (Negative) Urine Microscopic RBC TNTC H (0-3) per hpf Urine Microscopic WBC 3-5 H (0-3) per hpf Ur Squamous Epith Cells Moderate H (None-Few) per lpf Urine Bacteria None Seen (None-Few) per hpf Hyaline Casts None Seen (None-Few) per lpf HIV-1 RNA copies/mL <20 cpy/mL HIV RNA Quant Info NOT DETECTED (Not Detected) HIV-1 RNA Qnt Date Rpt <1.3 log - Impressions Impressions Chest X-Ray 07/31/18 16:26 IMPRESSION: See findings above. D/ / Ramesh Meyer / Ramesh Meyer Interpreting Provider: Ramesh Meyer Exam - Constitutional Vitals: Temp Pulse Resp BP Pulse Ox 98.9 F 89 18 149/71 92 08/01/18 10:49 08/01/18 10:49 08/01/18 11:06 08/01/18 10:49 08/01/18 11:06 General appearance: cooperative, morbidly obese, no acute distress - Head Head exam: Present: atraumatic, normal inspection, normocephalic - Eye Eye exam: Present: EOMI, normal appearance, PERRL Pupils: Present: normal accommodation - ENT ENT exam: Present: mucous membranes moist Additional comments: Very poor dentition noted. Tenderness noted with palpation of the right upper gum line and face. Tooth is broken off and edges are jagged. - Neck Neck exam: Present: normal inspection - Respiratory Respiratory exam: Present: CTAB. Absent: rales, respiratory distress, rhonchi, wheezes - Cardiovascular Cardiovascular exam: Present: RRR, +S1, +S2 - GI/Abdominal GI/Abdominal exam: Present: distended (obese), normal bowel sounds, soft. Absent: tenderness Additional comments: Mccloud catheter noted with bloody urine noted. More clear today than yesterday. - Extremities Exam Extremities exam: Present: tenderness (LLE). Absent: normal inspection (Venous stasis dermatitis noted to the BLE. LLE dressing C/D/I.), pedal edema - Neurological Exam Neurological exam: Present: alert, oriented X3, no focal deficits - Psychiatric Psychiatric exam: Present: normal affect, normal mood - Skin Skin exam: Present: dry, intact, normal color, warm Consult Discharge Plan - Plan Instructions: Urinary Tract Infection in Men (DC), Cellulitis (DC) Additional Instructions: follow up with PCP, and pulmonary Referrals: Ephraim Esquivel MD [Primary Care Provider] - Prescriptions: Clotrimazole/Betameth Dip CRM [Lotrisone CRM] 1 appl TP BID #1 tube Fluticasone/Salmeterol [Advair 100-50 Diskus] 1 each IH BID #1 blst.w.dev Furosemide [Lasix] 20 mg PO DAILY #30 Insulin Glargine [Lantus] 10 unit SQ HS #30 mls levoFLOXacin [Levaquin] 750 mg PO DAILY #10 tablet metFORMIN [Glucophage] 500 mg PO BIDWM #60 tablet Miconazole Nitrate [Georgie Antifungal] 1 appl TP DAILY #1 tube Tamsulosin [Flomax] 0.4 mg PO DAILY #30 capsule - Attending Attestation I examined this patient and my medical decision-making was reviewed with the Resident Physician. I agree with the documented findings, disposition and treatment plan as described except to the extent set forth below.
--- NOTE | 2018-08-01 19:53 | Internal Med Progress Note ---
Hospitalist Progress Note - Encounter Date of Encounter: 08/01/18 Time of Encounter: 11:00 - Subjective Interval History: Patient resting comfortably on 5-6 L of oxygen supplementation on oxygen mass. Patient's leukocytosis has improved on IV antibiotics Workup in progress per infectious disease - Exam Vitals: Temp Pulse Resp BP Pulse Ox 98.5 F 97 18 142/72 90 08/01/18 16:06 08/01/18 16:06 08/01/18 16:06 08/01/18 16:06 08/01/18 16:06 Exam: Gen.: Nonacute distress, alert and oriented 3 ENT: Mucosal membranes moist Respiratory: Lungs are clear to auscultation bilaterally without any wheezing rhonchi or rales Cardiovascular: Normal S1 and S2 regular rate rhythm no murmurs rubs or gallops Abdomen: Soft, nontender and nondistended with positive bowel sounds Extremities: No lower extremity edema Skin: Normal color - Assessment and Plan (1) Hematuria Current Visit: Yes Status: Acute Assessment and Plan: Patient with gross hematuria in Mccloud catheter and bag Urology with relations for voiding trial to see if Mccloud catheter can be discontinued Patient will follow-up with urology as an outpatient (2) Leukocytosis Current Visit: Yes Status: Acute Assessment and Plan: Pt's WBC 7.7 but went up to 20 and STAT repeat was 21.3. Leukocytosis has since improved to 16.8 on yesterday and now 11.4 this morning since starting IV Zosyn Etiology unclear. He is not on steroids. Infectious disease consulted and appreciate recommendations (3) Urinary incontinence Current Visit: Yes Status: Acute Assessment and Plan: Urinary incontinence, unknown etiology. UA done in ED on admission contaminated. Re check UA showing moderate leuks. Started on Zosyn due to bump in WBC. Mccloud was placed but then discontinued 07/29/2018 but then replaced mccloud catheter 07/30/18. Pt started on flomax 07/31/2018. Retroperitoneal ultrasound US/US retroperitoneal comp IMPRESSION: Limited negative renal ultrasound. (4) Obesities, morbid Current Visit: Yes Status: Chronic Assessment and Plan: strongly recommending life style modification such as diet and exercise. (5) Pleural effusion Current Visit: Yes Status: Acute Assessment and Plan: Pleural effusion not seen; continue to monitor. (6) Diabetes Current Visit: Yes Status: Acute Assessment and Plan: Diabetes which appears to be in relatively good control Patient has been on pioglitazone which is not a great medication for him considering suspected heart failure. Will DC prioglitazone and likely send home on Insulin. (7) TEAGAN (acute kidney injury) Current Visit: Yes Status: Acute Assessment and Plan: Resolved; continue to monitor (8) Intertrigo Current Visit: Yes Status: Acute Assessment and Plan: On miconazole (9) CHF (congestive heart failure), NYHA class III Current Visit: Yes Status: Acute Assessment and Plan: Patient had worsening dyspnea on exertion, elevated BNP on admission 731 Chest x-ray demonstrated right pleural effusion and pulmonary vascular congestion Echo showed severe pulmonary hypertension with dilated right atrium likely 2/2 to diastolic CHF Was on lasixon admission, but this has been held due to over diuresis but then resumed on Lasix 07/26/18 due to worsening hypoxia and oxygen requirement going from 2L to 5L NC. Unfortunately BUN up again 07/30/2018 at 24 so Lasix held again. Will place on Low dose Lasi 20 mg PO daily as pt till requires some diuretic on board. Will continue ot monitor renal function closely. At this point will consult palliative care for assistance with discharge planing as pt's prognosis is guarded. (10) Acute on chronic respiratory failure with hypoxia and hypercapnia Current Visit: Yes Status: Acute Assessment and Plan: Likely multifactorial from Pulmonary hypertension with cor pulmonale, untreated obstructive sleep apnea, obesity hypoventilation syndrome, COPD and acute worsening of chronic diastolic CHF Pulmonary saw the pt and recommends continue BIPAP, symbicort,and nebs prn. Was on lasix which has been held due to over diuresis. Pulmonology also recommending out pt PFT. Consulting palliative care to see. (11) Pulmonary hypertension Current Visit: Yes Status: Acute Assessment and Plan: Pulmonary HTN with evidence of cor pulmonale. Pt is difficult to diurese. Will continue supportive care with O2, BiPAP and symbicort. Will place on Lasix 20 mg PO QD for now. Prognosis guarded DVT Prophylaxis: Heparin - Time Spent with Patient Total time spent is greater than 50% in coordination of care (as documented) at patient's floor/unit and/or counseling patient: Internal Medicine: Result - Labs CBC & Chem 7: 08/01/18 09:22 08/01/18 09:22 Labs: Short CBC 08/01/18 Range/Units 09:22 WBC 11.4 H (4.3-11.1) K/mcL Hgb 12.1 L (12.9-16.9) g/dL Hct 43.8 (37.5-50.1) % Plt Count 140 (140-400) K/mcL Neutrophils # 9.9 H (1.6-8.9) K/mcL BMP 08/01/18 09:22 Sodium 140 Potassium 3.7 Chloride 93 L Carbon Dioxide 41 H* BUN 20 Creatinine 0.88 Glucose 243 H Calcium 8.3 L - ABG Interpretation ABG results: ABG ABG pH 7.37 pH Units (7.32-7.45) 07/25/18 10:38 ABG pCO2 79 mmHg (35-45) H* 07/25/18 10:38 ABG pO2 71 mmHg (85-104) L 07/25/18 10:38 ABG O2 Saturation 92 % (95-98) L 07/25/18 10:38 PT/INR, D-dimer PT 18.0 Seconds (9.4-12.1) H 07/23/18 05:06 - Impressions Impressions Chest X-Ray 07/31/18 16:26 IMPRESSION: See findings above. D/ / Ramesh Meyer / Ramesh Meyer Interpreting Provider: Ramesh Meyer Consult Discharge Plan - Plan Referrals: Ephraim Esquivel MD [Primary Care Provider] - (1) Hematuria Qualifiers: Hematuria type: gross Qualified Code(s): R31.0 - Gross hematuria (2) Leukocytosis Qualifiers: Leukocytosis type: unspecified Qualified Code(s): D72.829 - Elevated white blood cell count, unspecified (3) Urinary incontinence Qualifiers: Urinary Incontinence type: unspecified incontinence Qualified Code(s): R32 - Unspecified urinary incontinence (6) Diabetes Qualifiers: Diabetes mellitus type: type 2 Diabetes mellitus mcc insulin use: with mcc use Diabetes mellitus complication status: with skin complications Diabetes mellitus complication detail: with dermatitis Qualified Code(s): E11.620 - Type 2 diabetes mellitus with diabetic dermatitis; Z79.4 - corner cutter ( current) use of insulin (9) CHF (congestive heart failure), NYHA class III Qualifiers: Congestive heart failure type: diastolic Congestive heart failure chronicity : acute Qualified Code(s): I50.31 - Acute diastolic (congestive) heart failure
[2018-08-02] MEDS: Piperacillin/Tazobactam 3.375 GM in 0.9 % Sodium Chloride Mini Bag 100 ML IVPB SCH ×2 (01:19→10:55)
[2018-08-02] MEDS: Clotrimazole/Betameth Dip CRM 45 APPL/45 GM TUBE TP SCH ×2 (06:12→10:57)
[2018-08-02] MEDS: *HR* Heparin 5,000 UNIT/ML VIAL SQ SCH ×3 (06:13→10:57)
[2018-08-02] MEDS: Budesonide/Formoterol 80/4.5 MDI IH SCH (07:44)
--- NOTE | 2018-08-02 08:55 | Urology Progress Note ---
<Yomaira Rodriguez N - Last Filed: 08/02/18 08:52> Date of Encounter: 08/02/18 Time of Encounter: 08:52 - Assessment and Plan (1) Hematuria Status: Acute Assessment and plan: Patient is a 62-year-old male who presents the history of gross hematuria following catheter placement and anticoagulation. Hematuria appears to be resolving. Hemoglobin and hematocrit are stable. I explained his urine may take longer to clear due to fluid restriction. Urology will follow as needed. Qualifiers: Hematuria type: gross Qualified Code(s): R31.0 - Gross hematuria Progress Note Subjective: no new complaints, feels better Narrative: Patient seen and examined sitting upright in bed in no apparent distress. Solorio catheter was removed yesterday, and patient reports he is voiding well without difficulty. Patient states his urine is transparent tea color with no bright red blood or blood clots observed. Objective Initial Vital Signs Temp Pulse Resp BP Pulse Ox 98.5 F 80 20 139/79 85 07/22/18 21:27 07/22/18 21:27 07/22/18 21:27 07/22/18 21:27 07/22/18 21:27 - General physical appearance Present: no distress, chronically ill, obese - Respiratory Present: normal expansion. Absent: normal respiratory effort - Abdomen Present: soft, non tender - Genitourinary Present: other (no urine saved for observation ) - Integumentary Present: no rash, no abnormal pigmentation - Musculoskeletal Present: normal posture, other (severe venous stasis bilaterally ) - Psychiatric Present: oriented to time, oriented to person, oriented to place, speech is normal, memory intact - Labs 08/01/18 09:22 08/01/18 09:22 Diabetes panel 08/01/18 Range/Units 09:22 Sodium 140 (136-145) mEq/L Potassium 3.7 (3.5-5.1) mEq/L Chloride 93 L (98-107) mEq/L Carbon Dioxide 41 H* (23-29) mEq/L BUN 20 (8-23) mg/dL Creatinine 0.88 (0.70-1.30) mg/dL Glucose 243 H (70-105) mg/dL Calcium 8.3 L (8.6-10.3) mg/dL Calcium panel 08/01/18 Range/Units 09:22 Calcium 8.3 L (8.6-10.3) mg/dL Pituitary panel 08/01/18 Range/Units 09:22 Sodium 140 (136-145) mEq/L Potassium 3.7 (3.5-5.1) mEq/L Chloride 93 L (98-107) mEq/L Carbon Dioxide 41 H* (23-29) mEq/L BUN 20 (8-23) mg/dL Creatinine 0.88 (0.70-1.30) mg/dL Glucose 243 H (70-105) mg/dL Calcium 8.3 L (8.6-10.3) mg/dL Adrenal panel 08/01/18 Range/Units 09:22 Sodium 140 (136-145) mEq/L Potassium 3.7 (3.5-5.1) mEq/L Chloride 93 L (98-107) mEq/L Carbon Dioxide 41 H* (23-29) mEq/L BUN 20 (8-23) mg/dL Creatinine 0.88 (0.70-1.30) mg/dL Glucose 243 H (70-105) mg/dL Calcium 8.3 L (8.6-10.3) mg/dL Consult Discharge Plan - Plan Instructions: Urinary Tract Infection in Men (DC), Cellulitis (DC) Additional Instructions: follow up with PCP, and pulmonary Referrals: Ephraim Esquivel MD [Primary Care Provider] - Prescriptions: Clotrimazole/Betameth Dip CRM [Lotrisone CRM] 1 appl TP BID #1 tube Fluticasone/Salmeterol [Advair 100-50 Diskus] 1 each IH BID #1 blst.w.dev Furosemide [Lasix] 20 mg PO DAILY #30 Insulin Glargine [Lantus] 10 unit SQ HS #30 mls levoFLOXacin [Levaquin] 750 mg PO DAILY #10 tablet metFORMIN [Glucophage] 500 mg PO BIDWM #60 tablet Miconazole Nitrate [Georgie Antifungal] 1 appl TP DAILY #1 tube Tamsulosin [Flomax] 0.4 mg PO DAILY #30 capsule <Mikey Machado - Last Filed: 08/03/18 07:39> Date of Encounter: 08/03/18 - Assessment and Plan (1) Hematuria Status: Acute Qualifiers: Hematuria type: gross Qualified Code(s): R31.0 - Gross hematuria (2) Gross hematuria Status: Acute Assessment and plan: seen in conjunction with PA. Agree with notes and plan Objective Initial Vital Signs Temp Pulse Resp BP Pulse Ox 98.5 F 80 20 139/79 85 07/22/18 21:27 07/22/18 21:27 07/22/18 21:27 07/22/18 21:27 07/22/18 21:27 - Labs 08/02/18 10:35 08/02/18 10:35 Diabetes panel 08/02/18 Range/Units 10:35 Sodium 139 (136-145) mEq/L Potassium 3.7 (3.5-5.1) mEq/L Chloride 93 L (98-107) mEq/L Carbon Dioxide 42 H* (23-29) mEq/L BUN 20 (8-23) mg/dL Creatinine 0.80 (0.70-1.30) mg/dL Glucose 245 H (70-105) mg/dL Calcium 8.2 L (8.6-10.3) mg/dL Calcium panel 08/02/18 Range/Units 10:35 Calcium 8.2 L (8.6-10.3) mg/dL Pituitary panel 08/02/18 Range/Units 10:35 Sodium 139 (136-145) mEq/L Potassium 3.7 (3.5-5.1) mEq/L Chloride 93 L (98-107) mEq/L Carbon Dioxide 42 H* (23-29) mEq/L BUN 20 (8-23) mg/dL Creatinine 0.80 (0.70-1.30) mg/dL Glucose 245 H (70-105) mg/dL Calcium 8.2 L (8.6-10.3) mg/dL Adrenal panel 08/02/18 Range/Units 10:35 Sodium 139 (136-145) mEq/L Potassium 3.7 (3.5-5.1) mEq/L Chloride 93 L (98-107) mEq/L Carbon Dioxide 42 H* (23-29) mEq/L BUN 20 (8-23) mg/dL Creatinine 0.80 (0.70-1.30) mg/dL Glucose 245 H (70-105) mg/dL Calcium 8.2 L (8.6-10.3) mg/dL
--- NOTE | 2018-08-02 10:05 | Internal Med Progress Note ---
Hospitalist Progress Note - Encounter Date of Encounter: 08/02/18 - Subjective Interval History: Patient resting comfortably on 5-6 L of oxygen supplementation on oxygen mass. Patient's leukocytosis has improved on IV antibiotics Workup in progress per infectious disease - Exam Vitals: Temp Pulse Resp BP Pulse Ox 98.2 F 98 15 162/77 94 08/02/18 06:49 08/02/18 06:49 08/02/18 07:44 08/02/18 06:49 08/02/18 07:44 - Assessment and Plan (1) Leukocytosis Current Visit: Yes Status: Acute Assessment and Plan: Leukocytosis improving on IV Zosyn: 7.7->21.3->16.8->11.4-> Urine cultures from Mccloud port grew gram-negative rods; awaiting sensitivities Continue IV Zosyn per infectious disease recommendations (2) Acute on chronic respiratory failure with hypoxia and hypercapnia Current Visit: Yes Status: Acute Assessment and Plan: Likely multifactorial from Pulmonary hypertension with cor pulmonale, untreated obstructive sleep apnea, obesity hypoventilation syndrome, COPD and acute worsening of chronic diastolic CHF Pulmonary saw the pt and recommends continue BIPAP, symbicort,and nebs prn. Was on lasix which has been held due to over diuresis. Pulmonology also recommending out pt PFT. Palliative care consulted for any additional recommendations (3) Pulmonary hypertension Current Visit: Yes Status: Acute Assessment and Plan: Pulmonary HTN with evidence of cor pulmonale. Pt is difficult to diurese. Will continue supportive care with O2, BiPAP and symbicort. Pulmonology was consulted with recommendations for PFTs as an outpatient (4) CHF (congestive heart failure), NYHA class III Current Visit: Yes Status: Acute Assessment and Plan: Patient had worsening dyspnea on exertion, elevated BNP on admission 731 Chest x-ray demonstrated right pleural effusion and pulmonary vascular congestion Echo showed severe pulmonary hypertension with dilated right atrium likely 2/2 to diastolic CHF Improved with IV diuresis which has been discontinued (5) Hematuria Current Visit: Yes Status: Acute Assessment and Plan: Gross hematuria improving; spec secondary to Mccloud catheter placement with anticoagulation Patient will follow-up with urology as an outpatient (6) Urinary incontinence Current Visit: Yes Status: Acute Assessment and Plan: Urinary incontinence, unknown etiology. No acute findings on renal ultrasound Mccloud was placed but then discontinued 07/29/2018 but then replaced mccloud catheter 07/30/18. Pt started on flomax 07/31/2018. (7) Obesities, morbid Current Visit: Yes Status: Chronic Assessment and Plan: Lifestyle modifications (8) Pleural effusion Current Visit: Yes Status: Acute Assessment and Plan: Pleural effusion not seen; continue to monitor. (9) Diabetes Current Visit: Yes Status: Acute Assessment and Plan: Diabetes which appears to be in relatively good control Patient has been on pioglitazone which is not a great medication for him considering suspected heart failure. Will DC prioglitazone and likely send home on Insulin. (10) TEAGAN (acute kidney injury) Current Visit: Yes Status: Acute Assessment and Plan: Resolved; continue to monitor (11) Intertrigo Current Visit: Yes Status: Acute Assessment and Plan: On miconazole DVT Prophylaxis: Heparin subcutaneous - Time Spent with Patient Total time spent is greater than 50% in coordination of care (as documented) at patient's floor/unit and/or counseling patient: Internal Medicine: Result - Labs CBC & Chem 7: 08/01/18 09:22 08/01/18 09:22 Labs: Short CBC 08/01/18 Range/Units 09:22 Neutrophils # 9.9 H (1.6-8.9) K/mcL BMP 08/01/18 09:22 Sodium 140 Potassium 3.7 Chloride 93 L Carbon Dioxide 41 H* BUN 20 Creatinine 0.88 Glucose 243 H Calcium 8.3 L - ABG Interpretation ABG results: ABG ABG pH 7.37 pH Units (7.32-7.45) 07/25/18 10:38 ABG pCO2 79 mmHg (35-45) H* 07/25/18 10:38 ABG pO2 71 mmHg (85-104) L 07/25/18 10:38 ABG O2 Saturation 92 % (95-98) L 07/25/18 10:38 PT/INR, D-dimer PT 18.0 Seconds (9.4-12.1) H 07/23/18 05:06 Consult Discharge Plan - Plan Referrals: Ephraim Esquivel MD [Primary Care Provider] - (1) Leukocytosis Qualifiers: Leukocytosis type: unspecified Qualified Code(s): D72.829 - Elevated white blood cell count, unspecified (4) CHF (congestive heart failure), NYHA class III Qualifiers: Congestive heart failure type: diastolic Congestive heart failure chronicity : acute Qualified Code(s): I50.31 - Acute diastolic (congestive) heart failure (5) Hematuria Qualifiers: Hematuria type: gross Qualified Code(s): R31.0 - Gross hematuria (6) Urinary incontinence Qualifiers: Urinary Incontinence type: unspecified incontinence Qualified Code(s): R32 - Unspecified urinary incontinence (9) Diabetes Qualifiers: Diabetes mellitus type: type 2 Diabetes mellitus penitentiary insulin use: with oil heaterman use Diabetes mellitus complication status: with skin complications Diabetes mellitus complication detail: with dermatitis Qualified Code(s): E11.620 - Type 2 diabetes mellitus with diabetic dermatitis; Z79.4 - extermination supervisor ( current) use of insulin
[2018-08-02 10:29] VITALS: BP 161/64
[2018-08-02] MEDS: Aspirin Enteric Coated 81 MG Tablet PO SCH (10:56)
[2018-08-02] MEDS: Metoprolol XL (24 HR) Succ 50 MG TAB.ER.24H PO SCH (10:56)
[2018-08-02] MEDS: MICONAZOLE NITRATE 57 GM TUBE TP SCH (10:57)
[2018-08-02] MEDS: Insulin LISPRO 300 UNITS/3 ML VIAL SQ SCH ×2 (10:57→13:51)
[2018-08-02 11:17] LABS: Basophils % 0.4 %; Eosinophils # 0.2 K/mcL (0.0-0.6); Eosinophils % 2.6 %; Hematocrit 42.5 % (37.5-50.1); Hemoglobin 11.6 g/dL (12.9-16.9); Immature Granulocytes % 0.9 % (0-4); Lymphocytes # 0.5 K/mcL (0.6-4.6); Mean Corpuscular HGB Conc 27.3 g/dL (31.6-35.5); Mean Corpuscular Hemoglobin 24.1 pg (28.0-33.3); Mean Corpuscular Volume 88.4 fL (83.0-100.0); Mean Platelet Volume 10.3 fL (9.4-12.4); Monocytes # 0.9 K/mcL (0.0-1.3); Monocytes % 11.2 %; Neutrophils # 6.3 K/mcL (1.6-8.9); Platelet Count 148 K/mcL (140-400); Red Blood Count 4.81 M/mcL (4.19-5.50); Red Cell Distribution Width 18.3 % (11.5-14.5); Segmented Neutrophils % 78.9 %
[2018-08-02 11:28] LABS: BUN/Creatinine Ratio 25 (6-26); Blood Urea Nitrogen 20 mg/dL (8-23); Calcium 8.2 mg/dL (8.6-10.3); Carbon Dioxide 42 mEq/L (23-29); Chloride 93 mEq/L (98-107); Glucose 245 mg/dL (70-105); Osmolality,Calculated 299 (280-300); Potassium 3.7 mEq/L (3.5-5.1); Sodium 139 mEq/L (136-145); eGFR For Non-African Americans > 60 (> 60)
[2018-08-02] MEDS ORDERED: BENZOCAINE/MENTHOL 1 LOZENGE (BAG OF 6) MM PRN (11:34)
[2018-08-02 11:41] LABS: Anisocytosis 1+ (Not Present); Hypochromasia Present (Not Present); Microcytosis Present (Not Present); Platelet Estimate Normal (Normal)
--- NOTE | 2018-08-02 12:31 | Event Note ---
Date of Encounter: 08/02/18 Time of Encounter: 09:30 Patient awake and alert, daughter at bedside. He had catheter removed yesterday and he states he has voided 3 times without difficulty. Code states/ adv directives established. Home health has already been arranged. Palliative currently not managing any symptoms and will sign off. Please reconsult if needed.
--- NOTE | 2018-08-02 13:09 | Infectious Disease Progress No ---
Date of Encounter: 08/02/18 Time of Encounter: 12:00 - Assessment and Plan (1) Leukocytosis Status: Acute Resolved. Likely secondary to UTI. Qualifiers: Leukocytosis type: unspecified Qualified Code(s): D72.829 - Elevated white blood cell count, unspecified (2) Hematuria Status: Acute Etiology unclear: UTI vs. mccloud trauma vs. other. Improved. Consider CT of the abdomen/pelvis, but will defer to Urology. Urology consult noted. Qualifiers: Hematuria type: gross Qualified Code(s): R31.0 - Gross hematuria (3) UTI (urinary tract infection) Status: Acute Likely secondary to mccloud catheter. Causative organism Pseudomonas aeruginosa. Discontinue Zosyn. Start Levaquin 750mg PO daily. Duration of treatment depends on the clinical picture, but recommend a total of 10 days. Monitor renal function and dose-adjust antibiotics. Qualifiers: Urinary tract infection type: catheter-associated UTI Indwelling urinary catheter type: indwelling urethral catheter Encounter type: initial encounter Qualified Code(s): T83.511A - Infection and inflammatory reaction due to indwelling urethral catheter, initial encounter; N39.0 - Urinary tract infection , site not specified (4) Venous stasis of lower extremity Status: Acute Location: BLE, left>right. Podiatry consulted and following. Vascular consulted. Consider venous doppler study.--> negative for DVT ESR 34 and CRP 29. Unable to perform CT scan due to patient is over weight limit for CT table. Clinically improved since last ID evaluation so I do not think this is the source of the patient's leukocytosis. (5) Pleural effusion Status: Acute Location: Right lung. Likely secondary to CHF. CXR showed moderate right pleural effusion. Pulmonology evaluation noted. Diuresis/thoracentesis per the primary and pulmonology teams. (6) TEAGAN (acute kidney injury) Status: Acute Serum creatinine elevated at 1.97 on admission. Etiology unclear. Resolved. Continue to trend. Dose-adjust medications and avoid nephrotoxins. (7) Acute exacerbation of CHF (congestive heart failure) Status: Acute Cardiology consulted. Qualifiers: Heart failure type: diastolic Qualified Code(s): I50.33 - Acute on chronic diastolic (congestive) heart failure (8) Dyspnea Status: Acute Likely secondary to CHF and pleural effusion. Appears improved. VQ scan was low probability for PE. Management per the primary team. Qualifiers: Dyspnea type: unspecified Qualified Code(s): R06.00 - Dyspnea, unspecified (9) Urinary incontinence Status: Acute Etiology unclear. Improved. Voiding trial passed. Qualifiers: Urinary Incontinence type: unspecified incontinence Qualified Code(s): R32 - Unspecified urinary incontinence (10) Obesities, morbid Status: Chronic (11) Diabetes Status: Acute Recommend aggressive glucose monitoring and control to promote healing and prevent re-infection. Management per the primary team. Qualifiers: Diabetes mellitus type: type 2 Diabetes mellitus group home insulin use: with group home use Diabetes mellitus complication status: with skin complications Diabetes mellitus complication detail: with dermatitis Qualified Code(s): E11.620 - Type 2 diabetes mellitus with diabetic dermatitis; Z79.4 - snf (current) use of insulin (12) Intertrigo Status: Acute Topical antifungals as ordered by the primary team. (13) Hepatic injury Status: Resolved INR 1.7 on admission. LFT slightly elevated on admission, but haven't been re-checked. Liver UTS revealed hepatic steatosis. Repeat LFTs now. --> normal. Qualifiers: Encounter type: initial encounter Qualified Code(s): S36.119A - Unspecified injury of liver, initial encounter (14) Pain, dental Status: Acute The patient has very poor dentition with multiple missing/broken teeth. Clinically, does not appear to have an abscess. Unable to do CT scan as the patient exceeds weight limit for CT table. Spoke with radiology. X-rays unlikely to yield any additional information. Clinically improved. Recommend close follow-up with dentist after discharge. - Subjective Interval history: Patient seen and examined with family at the bedside. 30 minutes spent at the bedside answering questions and explaining at length the patient's medical issues. No acute distress noted. No acute events noted overnight. Patient states that overall he feels okay. Denies fevers, chills, or rigors. Denies chest pain, shortness of breath, or cough. Denies nausea, vomiting, or diarrhea. Denies abdominal pain and states the bladder irritation is better. Denies oral thrush. Reports dental pain is improved. Mccloud removed and patient able to void without difficulty. States hematuria is better. Infect Dis PN-Objective Data - Labs CBC & Chem 7: 08/02/18 10:35 08/02/18 10:35 Labs: Laboratory Results - last 24 hr 08/01/18 08/01/18 08/02/18 07:45 21:11 10:35 WBC 8.0 RBC 4.81 Hgb 11.6 L Hct 42.5 MCV 88.4 MCH 24.1 L MCHC 27.3 L RDW 18.3 H Plt Count 148 MPV 10.3 Immature Gran % 0.9 Seg Neutrophils % 78.9 Lymphocytes % 6.0 Monocytes % 11.2 Eosinophils % 2.6 Basophils % 0.4 Neutrophils # 6.3 Lymphocytes # 0.5 L Monocytes # 0.9 Eosinophils # 0.2 Basophils # 0.0 Platelet Estimate Normal Hypochromasia Present A Anisocytosis 1+ A Microcytosis Present A Sodium Potassium Chloride Carbon Dioxide BUN Creatinine Est GFR ( Amer) Est GFR (Non-Af Amer) BUN/Creatinine Ratio Glucose POC Glucose 164 H 191 H Calculated Osmolality Calcium 08/02/18 10:35 WBC RBC Hgb Hct MCV MCH MCHC RDW Plt Count MPV Immature Gran % Seg Neutrophils % Lymphocytes % Monocytes % Eosinophils % Basophils % Neutrophils # Lymphocytes # Monocytes # Eosinophils # Basophils # Platelet Estimate Hypochromasia Anisocytosis Microcytosis Sodium 139 Potassium 3.7 Chloride 93 L Carbon Dioxide 42 H* BUN 20 Creatinine 0.80 Est GFR ( Amer) > 60 Est GFR (Non-Af Amer) > 60 BUN/Creatinine Ratio 25 Glucose 245 H POC Glucose Calculated Osmolality 299 Calcium 8.2 L Cultures: Cultures 07/29/18 22:25 Urine Culture - Final Urine,[place] Pseudomonas aeruginosa Serology 07/29/18 07/27/18 07/24/18 Range/Units 22:15 19:00 22:14 Ur Specimen Adequacy Urine Color Red A Yellow (Yellow) Urine Clarity Cloudy A Cloudy A (Clear) Urine pH 8.0 6.5 (5.0-8.0) pH Units Ur Specific [place] 1.015 < 1.005 L (1.010-1.025) Urine Protein >=300 H Trace (Neg-Trace) mg/dL Urine Glucose (UA) Normal Normal (Normal) mg/dL Urine Ketones 15 H Negative (Negative) mg/dL Urine Blood Moderate H Large H (Negative) Urine Nitrite Negative Negative (Negative) Urine Bilirubin Small H Negative (Negative) Urine Urobilinogen 2.0 H Normal (Normal) mg/dL Ur Leukocyte Esterase Moderate H Small H (Negative) Urine Microscopic RBC TNTC H (0-3) per hpf Urine Microscopic WBC 3-5 H (0-3) per hpf Ur Squamous Epith Cells Moderate H (None-Few) per lpf Urine Bacteria None Seen (None-Few) per hpf Hyaline Casts None Seen (None-Few) per lpf HIV-1 RNA copies/mL <20 cpy/mL HIV RNA Quant Info NOT DETECTED (Not Detected) HIV-1 RNA Qnt Date Rpt <1.3 log Exam - Constitutional Vitals: Temp Pulse Resp BP Pulse Ox 98.1 F 98 18 161/64 95 08/02/18 10:28 08/02/18 10:28 08/02/18 10:28 08/02/18 10:28 08/02/18 10:28 General appearance: cooperative, morbidly obese, no acute distress - Head Head exam: Present: atraumatic, normal inspection, normocephalic - Eye Eye exam: Present: EOMI, normal appearance, PERRL Pupils: Present: normal accommodation - ENT ENT exam: Present: mucous membranes moist - Neck Neck exam: Present: normal inspection - Respiratory Respiratory exam: Present: decreased breath sounds (bilateral bases), CTAB. Absent: rales, respiratory distress, rhonchi, wheezes - Cardiovascular Cardiovascular exam: Present: RRR, +S1, +S2 - GI/Abdominal GI/Abdominal exam: Present: distended (obese), normal bowel sounds, soft. Absent: tenderness Additional comments: Chronic skin changes noted to the skin of the pannus. - Extremities Exam Extremities exam: Present: pedal edema (1+ BLE). Absent: joint swelling, normal inspection (Venous stasis dermatitis noted to the BLE.), tenderness Additional comments: LLE dressing C/D/I. - Neurological Exam Neurological exam: Present: alert, oriented X3, no focal deficits - Psychiatric Psychiatric exam: Present: normal affect, normal mood - Skin Skin exam: Present: dry, intact, normal color, warm Consult Discharge Plan - Plan Instructions: Urinary Tract Infection in Men (DC), Cellulitis (DC) Additional Instructions: follow up with PCP, and pulmonary Referrals: Ephraim Esquivel MD [Primary Care Provider] - Prescriptions: Clotrimazole/Betameth Dip CRM [Lotrisone CRM] 1 appl TP BID #1 tube Fluticasone/Salmeterol [Advair 100-50 Diskus] 1 each IH BID #1 blst.w.dev Furosemide [Lasix] 20 mg PO DAILY #30 Insulin Glargine [Lantus] 10 unit SQ HS #30 mls levoFLOXacin [Levaquin] 750 mg PO DAILY #10 tablet metFORMIN [Glucophage] 500 mg PO BIDWM #60 tablet Miconazole Nitrate [Georgie Antifungal] 1 appl TP DAILY #1 tube Tamsulosin [Flomax] 0.4 mg PO DAILY #30 capsule - Attending Attestation I examined this patient and my medical decision-making was reviewed with the Resident Physician. I agree with the documented findings, disposition and treatment plan as described except to the extent set forth below.
[2018-08-02] MEDS ORDERED: levoFLOXacin 750 MG TABLET PO SCH (13:15)
--- NOTE | 2018-08-02 13:56 | Discharge Summary ---
- NOTES TO OUTPATIENT PROVIDER Notes to Outpatient Provider: Follow-up with pulmonary for PFTs and primary care provider for management of multiple comorbidities Date of Encounter: 08/02/18 Time of Encounter: 11:00 - Discharge Diagnosis (1) Leukocytosis Priority: Secondary Status: Acute Qualifiers: Leukocytosis type: unspecified Qualified Code(s): D72.829 - Elevated white blood cell count, unspecified (2) Acute on chronic respiratory failure with hypoxia and hypercapnia Priority: Primary Status: Acute (3) Pulmonary hypertension Priority: Secondary Status: Acute (4) CHF (congestive heart failure), NYHA class III Priority: Secondary Status: Acute Qualifiers: Congestive heart failure type: diastolic Congestive heart failure chronicity: acute Qualified Code(s): I50.31 - Acute diastolic (congestive) heart failure (5) Hematuria Priority: Secondary Status: Acute Qualifiers: Hematuria type: gross Qualified Code(s): R31.0 - Gross hematuria (6) Urinary incontinence Priority: Secondary Status: Acute Qualifiers: Urinary Incontinence type: unspecified incontinence Qualified Code(s): R32 - Unspecified urinary incontinence (7) Obesities, morbid Priority: Secondary Status: Chronic (8) Pleural effusion Priority: Primary Status: Acute (9) Diabetes Priority: Secondary Status: Acute Qualifiers: Diabetes mellitus type: type 2 Diabetes mellitus coater slate insulin use: with mcfp use Diabetes mellitus complication status: with skin complications Diabetes mellitus complication detail: with dermatitis Qualified Code(s): E11.620 - Type 2 diabetes mellitus with diabetic dermatitis; Z79.4 - penitentiary (current) use of insulin (10) TEAGAN (acute kidney injury) Priority: Secondary Status: Acute (11) Intertrigo Priority: Secondary Status: Acute Hospital course: Patient is a 62-year-old male with past medical history significant for diabetes , hypertension, chronic cellulitis who presented to the ER on 07/23/18 with complaints of left leg wound/cellulitis which is been getting worse over the past 2-3 weeks. Patient reports that this has been chronic over the past 5-7 years, and required wound care approximately 5 years ago. In the past 2-3 weeks, he says that he has not been able to keep it under control. The wound has been getting worse, and he says that has been weeping water. He has also noticed that it has become redder, and has been swelling. In the ER, patient was noted to have cardiomegaly with moderate right- sided pleural effusion on chest x-ray with suspicion for fluid overload/CHF. She was also found to be in acute renal failure. During patients hospital stay cardiology was consulted and patient was treated with IV diuresis for acute diastolic heart failure; suspected right-sided heart failure secondary to severe pulmonary hypertension. Pulmonology was consulted for acute hypoxic/hypercapnic respiratory failure suspected secondary to obesity hypoventilation syndrome, COPD and BRENDA. Recommendations for pulmonary function test as an outpatient. Patient also developed gross hematuria and urology was consulted with suspicion that etiology was from [place] catheter and anticoagulation. She also developed leukocytosis and infectious disease was following with recommendations to start IV antibiotics. Repeat urine cultures were positive and patient will be sent out on a 10 day course of Levaquin. Patient will be discharged to follow up with pulmonology as an outpatient for PFTs in addition to complete a 10 day course Levaquin for UTI. - Time Spent with Patient Total time spent providing and/or coordinating discharge services: Less than 30 minutes - Discharge Medications Prescriptions: Clotrimazole/Betameth Dip CRM [Lotrisone CRM] 1 appl TP BID #1 tube Fluticasone/Salmeterol [Advair 100-50 Diskus] 1 each IH BID #1 blst.w.dev Furosemide [Lasix] 20 mg PO DAILY #30 Insulin Glargine [Lantus] 10 unit SQ HS #30 mls levoFLOXacin [Levaquin] 750 mg PO DAILY #10 tablet metFORMIN [Glucophage] 500 mg PO BIDWM #60 tablet Miconazole Nitrate [Georgie Antifungal] 1 appl TP DAILY #1 tube Tamsulosin [Flomax] 0.4 mg PO DAILY #30 capsule Home Medications: Aspirin Enteric Coated [Aspirin EC] 81 mg PO BID 07/22/18 [History] Atorvastatin Calcium [Lipitor] 20 mg PO HS 07/22/18 [History] Cholecalciferol (D-3) [Vitamin D] 5,000 unit PO DAILY 07/22/18 [History] Insulin ASPART [NovoLOG] 20 - 24 unit SQ TIDWM 07/22/18 [History] Metoprolol Succinate [Kapspargo Sprinkle] 50 mg PO DAILY 07/22/18 [History] Quinapril/Hydrochlorothiazide [Quinapril-Hctz 20-12.5 mg Tab] 1 tab PO DAILY 11/08 [History] Clotrimazole/Betameth Dip CRM [Lotrisone CRM] 1 appl TP BID #1 tube 08/02/18 [Rx ] Fluticasone/Salmeterol [Advair 100-50 Diskus] 1 each IH BID #1 blst.w.dev [Rx] Furosemide [Lasix] 20 mg PO DAILY #30 08/02/18 [Rx] Insulin Glargine [Lantus] 10 unit SQ HS #30 mls 08/02/18 [Rx] Miconazole Nitrate [Georgie Antifungal] 1 appl TP DAILY #1 tube 08/02/18 [Rx] Tamsulosin [Flomax] 0.4 mg PO DAILY #30 capsule 08/02/18 [Rx] levoFLOXacin [Levaquin] 750 mg PO DAILY #10 tablet 08/02/18 [Rx] metFORMIN [Glucophage] 500 mg PO BIDWM #60 tablet 08/02/18 [Rx] Allergies/Adverse Reactions: 3 Allergy/AdvReac Type Severity Reaction Status Date / Time No Known Allergies Allergy Verified 07/22/18 21:27 Date of admission: 07/23/18 05:21 Primary care physician: Ephraim Esquivel MD Consults: 07/23/18 08:59 Consult to Cardiology [CONS] Routine Comment: Consulting Provider: Cardiology [facility] Reason for Consult: new onset chf Time Notified: 09:00 Call Completed: No 07/23/18 09:08 Consult to Infectious Diseases [CONS] Routine Consulting Provider: Infectious [facility] [place] Reason for Consult: severe non resolving chronic cellulitis Time Notified: 09:09 Call Completed: No Consult to Wound Care [CONS] Routine Reason for Consult: severe cellulitis Time Notified: 09:08 Call Completed: No 07/23/18 14:25 Consult to Podiatry [CONS] Routine Consulting Provider: Podiatry [facility] Reason for Consult: severe cellulitis consult suggested by DR Mahan Time Notified: 14:26 Call Completed: No 07/24/18 07:58 Consult to Nurse Navigator [CONS] Routine Comment: CHF education; new onset 07/24/18 08:27 Consult to Pulmonology [CONS] Routine Consulting Provider: [facility] Reason for Consult: severe pulm htn aris has underlying lung disease BRENDA? Time Notified: 08:27 Call Completed: No 07/25/18 09:28 Consult to Physical Therapy [CONS] Routine Comment: Evaluate, develop and implement POC Reason for Consult: weakness Does patient have active BEDREST order?: No Is patient medically & hemodynamically stable?: Yes Patient assessed for mobility or mobilized this visit?: No 07/25/18 12:38 Consult to Occupational Therapy [CONS] Routine Comment: Evaluate, develop and implement POC Reason for Consult: weakness Does patient have active BEDREST order?: No Is patient medically & hemodynamically stable?: Yes Patient assessed for mobility or mobilized this visit?: No 07/30/18 11:02 Consult to Palliative Care [CONS] Routine Comment: Consulting Provider: Palliative [facility] [place] Reason for Consult: assisstance with discharge planing Call Completed: Yes 07/30/18 15:04 Consult to Interventional Radiology [CONS] Routine Consulting Provider: Radiology [facility] [place] Reason for Consult: R pleural effusion Call Completed: No 07/31/18 19:30 Consult to Urology [CONS] Routine Consulting Provider: Urology [facility] Reason for Consult: Hematuria Call Completed: No - Constitutional Vitals: Temp Pulse Resp BP Pulse Ox 98.1 F 98 18 161/64 95 08/02/18 10:28 08/02/18 10:28 08/02/18 10:28 08/02/18 10:28 08/02/18 10:28 Exam: Gen.: Nonacute distress, alert and oriented 3 Skin: Normal color - Patient Status Disposition: Home Health Service Condition: Fair - Discharge Instructions Instructions: Urinary Tract Infection in Men (DC), Cellulitis (DC) Follow Up With: Ephraim Esquivel MD [Primary Care Provider] - Additional Instructions: follow up with PCP, and pulmonary
--- NOTE | 2018-08-02 14:01 | Physician Discharge Referral ---
Home Health/Hosp Referral Info Transfer to: Home Health - Diagnosis (1) Leukocytosis Status: Acute (2) Acute on chronic respiratory failure with hypoxia and hypercapnia Status: Acute (3) Pulmonary hypertension Status: Acute (4) CHF (congestive heart failure), NYHA class III Status: Acute (5) Hematuria Status: Acute (6) Urinary incontinence Status: Acute (7) Obesities, morbid Status: Chronic (8) Pleural effusion Status: Acute (9) Diabetes Status: Acute (10) TEAGAN (acute kidney injury) Status: Acute (11) Intertrigo Status: Acute - Respiratory Orders Smoking Cessation: Smoking cessation has been advised. For more information, call the [place] Tobacco Quit Line at 2-068-VNXU-NOW. - Services Needed Following services are medically necessary services: Nursing, Home Health Aide, Physical Therapy, Occupational Therapy - Transfer Medications Prescriptions: Clotrimazole/Betameth Dip CRM [Lotrisone CRM] 1 appl TP BID #1 tube Fluticasone/Salmeterol [Advair 100-50 Diskus] 1 each IH BID #1 blst.w.dev Furosemide [Lasix] 20 mg PO DAILY #30 Insulin Glargine [Lantus] 10 unit SQ HS #30 mls levoFLOXacin [Levaquin] 750 mg PO DAILY #10 tablet metFORMIN [Glucophage] 500 mg PO BIDWM #60 tablet Miconazole Nitrate [Georgie Antifungal] 1 appl TP DAILY #1 tube Tamsulosin [Flomax] 0.4 mg PO DAILY #30 capsule Home Medications: Aspirin Enteric Coated [Aspirin EC] 81 mg PO BID 07/22/18 [History] Atorvastatin Calcium [Lipitor] 20 mg PO HS 07/22/18 [History] Cholecalciferol (D-3) [Vitamin D] 5,000 unit PO DAILY 07/22/18 [History] Insulin ASPART [NovoLOG] 20 - 24 unit SQ TIDWM 07/22/18 [History] Metoprolol Succinate [Kapspargo Sprinkle] 50 mg PO DAILY 07/22/18 [History] Quinapril/Hydrochlorothiazide [Quinapril-Hctz 20-12.5 mg Tab] 1 tab PO DAILY 11/08 [History] Clotrimazole/Betameth Dip CRM [Lotrisone CRM] 1 appl TP BID #1 tube 08/02/18 [Rx ] Fluticasone/Salmeterol [Advair 100-50 Diskus] 1 each IH BID #1 blst.w.dev [Rx] Furosemide [Lasix] 20 mg PO DAILY #30 08/02/18 [Rx] Insulin Glargine [Lantus] 10 unit SQ HS #30 mls 08/02/18 [Rx] Miconazole Nitrate [Georgie Antifungal] 1 appl TP DAILY #1 tube 08/02/18 [Rx] Tamsulosin [Flomax] 0.4 mg PO DAILY #30 capsule 08/02/18 [Rx] levoFLOXacin [Levaquin] 750 mg PO DAILY #10 tablet 08/02/18 [Rx] metFORMIN [Glucophage] 500 mg PO BIDWM #60 tablet 08/02/18 [Rx] Allergies/Adverse Reactions: 3 Allergy/AdvReac Type Severity Reaction Status Date / Time No Known Allergies Allergy Verified 07/22/18 21:27 Certification: Further, I certify that my clinical findings support that this patient is homebound (i.e. absences from home require considerable and taxing effort and are for medical reasons or [facility] services or infrequently or short duration when for other reasons) because: Homebound Reason: Patient requires assistance of a person or device to safely leave home Attestation: My signature below is to certify that this patient is under my care and that I, or nurse practitioner, or a physician's educational assistant teacher working with me, has a face-to -face encounter with this patient.
[2018-08-03] MEDS ORDERED: Furosemide 20 MG TABLET PO SCH (09:00)
== END 2018-08-02 17:04 | disposition home health service (06) | DRG 291 ==
LOC: 3ANU 21:21 → EMEROOARM 21:21 → 3ANU 07-23 00:02 → SUATTDRO 07-23 05:21
PROVIDERS: ADMIT Internal Medicine; ATTEND Hospitalist